=== PATIENT | female | born 1925 | race Caucasian/White ===

== ENCOUNTER 2016-03-31 07:28 | Inpatient (IN) | payer MEDICARE, OTHER ==
[2016-03-31] VITALS (8 sets, daily range): BP systolic 126–162; BP diastolic 65–93; PULSE 75–110; RESP 14–20; TEMP 96.5–98.3; O2SAT 91–96
[~2016-03-31] VITALS: Ht 152.4 cm; Wt 61.2 kg
[~2016-03-31 07:28] MED LIST: ABH GEL TOP; ARIC5TAB PO; CELE20TA PO; CHOL4POW4 PO; GLIP10TA6 PO; LACTCAP8 PO; LEVEMIR SQ; LEVO.2 PO; LISI10TA3 PO; LOMO2.5T PO; MEMA14CA PO; METF500 PO; NEUR300C PO; NOVOLOGP2 SQ; PANT20 PO; PLAV75TA29 PO; PROCHCT RECTAL; SM A PO; TIZA4 PO; TYLE325T PO; ZOFR4TAB PO
[2016-03-31] MEDS ORDERED: SODIUM CHLORIDE 0.9% FLUSH 5 ML FLUSH IVF PRN (07:45)
--- NOTE | 2016-03-31 07:59 | PD ---
HPI . Rectal bleeding Chief Complaint: Rectal bleeding Time Seen by Provider: 07:36 Travel History International Travel<30 days: No Contact w/Intl Traveler<30days: No History of Present Illness HPI Patient [facility] us from a [facility] by [facility] chief complaint of rectal bleeding which started sometime during the middle of the night. She has had no reported vomiting. She has had no reported fever. No further history is available from the patient as she is demented. PFSH Past Medical History Anxiety: No Depression: Yes Cancer: No Cardiac Catheterization: Yes Cardiovascular Problems: No Cerebrovascular Accident: Yes Dementia: Yes Diabetes: Yes Diminished Hearing: No Endocrine: Yes Genitourinary: No Headaches: No Hypertension: Yes Immune Disorder: No Musculoskeletal: No Neurologic: Yes Psychiatric: No Reproductive: No Respiratory: No Seizures: No Sickle Cell Disease: No Thyroid Disease: Yes Menopausal: Yes Past Surgical History Abdominal Surgery: No AICD: No Cardiac Surgery: No Ear Surgery: No Endocrine Surgery: No Eye Surgery: No Genitourinary Surgery: No Gynecologic Surgery: No Oral Surgery: No Pacemaker: No Thoracic Surgery: No Other Surgery: Yes (RIGHT BIG RIGHT TOE AMPUTATED ) Social History Alcohol Use: No Tobacco Use: No Substance Use: No Allergies-Medications (Allergen,Severity, Reaction): Coded Allergies: No Known Allergies (Verified , 03/31/16) Reported Meds & Prescriptions Reported Meds & Active Scripts Active Zanaflex (Tizanidine HCl) 4 Mg Tab 4 Mg PO HS Lisinopril 10 Mg Tab 10 Mg PO DAILY Synthroid (Levothyroxine Sodium) 200 Mcg Tab 200 Mcg PO DAILY@0600 Levemir Inj (Insulin Detemir) 1,000 unit/ 10 ML Vial 18 Units SQ DAILY Proctofoam Hc Rectal (Hydrocortisone/Pramoxine) 1-1% Foam 1 Applic RECTAL Q12HR Glipizide 10 Mg Tab 10 Mg PO DAILYAC Aricept (Donepezil) 5 Mg Tab 5 Mg PO HS Plavix (Clopidogrel Bisulfate) 75 Mg Tab 75 Mg PO DAILY Celexa (Citalopram Hydrobromide) 20 Mg Tab 20 Mg PO DAILY Cholestyramine 4 Gm/Pkt Powd 4 Gm PO DAILY@1200 Reported Trazodone (Trazodone HCl) 50 Mg Tab 50 Mg PO HS PRN Imodium A-D (Loperamide HCl) 2 Mg Cap 2 Mg PO Q3HR PRN Give 2x2mg at onset of diarrhea and then 1 with each loose stool (max 8 caps/24hrs. Notify MD if any blood in stool or diarrhea persists more than 4 days Ativan (Lorazepam) 0.5 Mg Tab 0.5 Mg PO Q8H PRN Gabapentin 300 Mg Cap 300 Mg PO TID Ferrousul (Ferrous Sulfate) 325 Mg Tab 325 Mg PO TID Ativan (Lorazepam) 0.5 Mg Tab 0.5 Mg PO TID Nuedexta 20-10 mg (Dextromethorphan HBr-Quinidine) 1 Cap Cap 1 Cap PO BID Metformin (Metformin HCl) 500 Mg Tab 500 Mg PO BID With meals Tylenol (Acetaminophen) 325 Mg Tab 650 Mg PO Q4H PRN Lomotil (Diphenoxylate-Atropine) 2.5-0.025 Mg Tab 1 Tab PO DAILY PRN Novolog Inj (Insulin Aspart) 1,000 Unit/10 Ml Vial 0 SQ ACHS Sliding Scale as directed: if <70 call MD, 151-200=2 units, 201-250=4 units, 251-300=6 units, 301-350=8 units, 351-400=10 units, >400=12 units and call Probiotic (Lactobacillus Acidophilus) 1 Cap Cap 1 Cap PO BID Namenda Xr (Memantine) 14 Mg Caper 14 Mg PO DAILY Zofran (Ondansetron HCl) 4 Mg Tab 4 Mg PO Q6HR PRN Sm Acid Program Proposals Coordinator (Ranitidine HCl) 75 Mg Tab 75 Mg PO BID Review of Systems ROS Limitations: Altered Mental Status, Poor Historian Except as stated in HPI: all other systems reviewed are Neg General / Constitutional: No: Fever, Chills Gastrointestinal: Positive: Hematochezia, No: Vomiting, Hematemesis Physical Exam Narrative GENERAL: The patient is alert but unable to contribute to her history. SKIN: Warm and dry. HEAD: Atraumatic. Normocephalic. EYES: Pupils equal and round. ENT: No nasal bleeding or discharge. Mucous membranes pink and moist. NECK: Trachea midline. CARDIOVASCULAR: Regular rate and rhythm. RESPIRATORY: No accessory muscle use. GASTROINTESTINAL: Abdomen soft, non-tender, nondistended. She has maroon colored stool soiling her buttocks and upper back. She does have a hemorrhoid but the bleeding does not appear to be coming from the hemorrhoid. MUSCULOSKELETAL: No obvious deformities. No edema. NEUROLOGICAL: Awake and alert. No obvious cranial nerve deficits. Motor grossly within normal limits. Normal speech. PSYCHIATRIC: Occasionally agitated.. Data Data Last Documented VS Vital Signs Date Time Temp Pulse Resp B/P Pulse Ox O2 Delivery O2 Flow Rate FiO2 03/31/16 09:19 83 16 162/87 96 Room Air 03/31/16 08:29 96.5 Orders Basic Metabolic Panel (Bmp) (03/31/16 07:37) Complete Blood Count With Diff (03/31/16 07:37) Prothrombin Time / Inr (Pt) (03/31/16 07:37) Act Partial Throm Time (Ptt) (03/31/16 07:37) Urinalysis - C+S If Indicated (03/31/16 07:37) Type And Screen (03/31/16 07:37) Ecg Monitoring (03/31/16 07:37) Iv Access Insert/Monitor (03/31/16 07:37) Oximetry (03/31/16 07:37) Oxygen Administration (03/31/16 07:37) Urinary Catheter Insert/Apply (03/31/16 07:37) Sodium Chloride 0.9% Flush (Ns Flush) (03/31/16 07:45) Lorazepam Inj (Ativan Inj) (03/31/16 08:00) Restraints Non-Violent LASHAY.Q3H (03/31/16 07:52) Urine Culture (03/31/16 08:00) Ceftriaxone Inj (Rocephin Inj) (03/31/16 09:00) Lorazepam Inj (Ativan Inj) (03/31/16 09:15) Haloperidol Inj (Haldol Inj) (03/31/16 09:30) Admit Order (Ed Use Only) (03/31/16 09:45) Labs Laboratory Tests Test 03/31/16 03/31/16 07:50 08:00 White Blood Count 8.5 TH/MM3 Red Blood Count 3.64 MIL/MM3 Hemoglobin 10.3 GM/DL Hematocrit 31.6 % Mean Corpuscular Volume 86.9 FL Mean Corpuscular Hemoglobin 28.2 PG Mean Corpuscular Hemoglobin 32.5 % Concent Red Cell Distribution Width 24.2 % Platelet Count 247 TH/MM3 Mean Platelet Volume 8.0 FL Neutrophils (%) (Auto) 55.4 % Lymphocytes (%) (Auto) 29.7 % Monocytes (%) (Auto) 9.1 % Eosinophils (%) (Auto) 5.2 % Basophils (%) (Auto) 0.6 % Neutrophils # (Auto) 4.7 TH/MM3 Lymphocytes # (Auto) 2.5 TH/MM3 Monocytes # (Auto) 0.8 TH/MM3 Eosinophils # (Auto) 0.4 TH/MM3 Basophils # (Auto) 0.1 TH/MM3 CBC Comment DIFF FINAL Differential Comment Prothrombin Time 10.3 SEC Prothromb Time International 0.9 RATIO Ratio Activated Partial 20.8 SEC Thromboplast Time Sodium Level 143 MEQ/L Potassium Level 3.8 MEQ/L Chloride Level 106 MEQ/L Carbon Dioxide Level 31.5 MEQ/L Anion Gap 6 MEQ/L Blood Urea Nitrogen 27 MG/DL Creatinine 0.92 MG/DL Estimat Glomerular Filtration 57 ML/MIN Rate Random Glucose 93 MG/DL Calcium Level 9.1 MG/DL Urine Color YELLOW Urine Turbidity CLOUDY Urine pH 8.0 Urine Specific [place] 1.023 Urine Protein 30 mg/dL Urine Glucose (UA) NEG mg/dL Urine Ketones NEG mg/dL Urine Occult Blood TRACE Urine Nitrite NEG Urine Bilirubin NEG Urine Urobilinogen LESS THAN 2.0 MG/DL Urine Leukocyte Esterase SMALL Urine WBC 6 /hpf Urine Squamous Epithelial 4 /hpf Cells Urine Triple Phosphate OCC /hpf Crystals Urine Amorphous Sediment FEW Urine Bacteria MANY /hpf Microscopic Urinalysis Comment CATH-CULTURE IND Blood Type A POSITIVE Antibody Screen NEGATIVE Blood Bank Comment [facility] Medical Decision Making Medical Screen Exam Complete: Yes Emergency Medical Condition: Yes Medical Record Reviewed: Yes (patient has had a recent admission to both the hospital and the psychiatric unit for dementia with behavioral disturbance. She is now unable to care for herself at home. She is also diabetic.) Interpretation(s) EKG shows a sinus rhythm. There is a lot of artifact. However, it does not appear to be changed from previous. Differential Diagnosis Differential diagnosis of lower GI bleed includes but is not limited to bleeding hemorrhoid, diverticulosis, colon cancer, coagulopathy, AVM Narrative Course This is a demented patient from the [facility] who was sent to us for GI bleed which started during the night. He appears to be a lower GI bleed. She is passing burgundy colored stools per rectum. There has been no associated vomiting. The patient is on Plavix but no other anticoagulants. She is on Protonix and Zantac. I do not see any mention of previous GI bleed in her records. CBC & BMP Diagram 03/31/16 07:50 Coags are normal. UA is positive for UTI. CT scan was not possible because of the patient's agitation. Sedation was attempted but she remained too agitated to do the CT. She needs to be admitted at least observation for monitoring of her H&H and for initial treatment of her UTI. Critical Care Narrative Aggregate critical care time was 45 minutes. Time to perform other separately billable procedures was not included in the critical care time. My time did not include minutes spent treating any other patients simultaneously or on activities that did not directly contribute to the patient's treatment. The services I provided to this patient were to treat and/or prevent clinically significant deterioration due to acute blood loss with resultant hemorrhagic shock and cardiovascular collapse. I provided critical care services requiring my management, as noted below: Chart data review, documentation time, medication orders and management, vital sign assessments/reviewing monitor data, ordering and reviewing lab tests, ordering and interpreting/reviewing x-rays and diagnostic studies, care of the patient and discussion of the patient with the admitting physicians Physician Communication Physician Communication Dr. Smith will admit to OBS. Diagnosis Primary Impression: Lower GI bleed Additional Impression: UTI (urinary tract infection) Qualified Code: N30.00 - Acute cystitis without hematuria Admitting Information Admitting Physician Requests: Observation Condition: Stable Анна Meredith MD Mar 31, 2016 07:59
[2016-03-31] MEDS ORDERED: LORazepam 2 MG/ML VIAL IV PUSH ONE ×2 (08:00→09:15)
[2016-03-31 08:19] LABS: AUTOMATED NEUTROPHIL # 4.7 TH/MM3 (1.8-7.7); BASOPHIL # 0.1 TH/MM3 (0-0.2); BASOPHIL % 0.6 % (0.0-2.0); EOSINOPHIL # 0.4 TH/MM3 (0-0.4); EOSINOPHIL % 5.2 % (0.0-4.0); HEMATOCRIT 31.6 % (35.0-46.0); HEMO FLAGS DIFF FINAL; LYMPH % 29.7 % (9.0-44.0); LYMPHOCYTE # 2.5 TH/MM3 (1.0-4.8); MEAN CELL VOLUME 86.9 FL (80.0-100.0); MEAN CORPUSCULAR HEMOGLOBIN 28.2 PG (27.0-34.0); MEAN CORPUSCULAR HGB CONC 32.5 % (32.0-36.0); MONO % 9.1 % (0.0-8.0); NEUT % 55.4 % (16.0-70.0); PLATELET COUNT 247 TH/MM3 (150-450); RED BLOOD COUNT 3.64 MIL/MM3 (4.00-5.30); RED CELL DISTRIBUTION WIDTH 24.2 % (11.6-17.2); WHITE BLOOD COUNT 8.5 TH/MM3 (4.0-11.0)
[2016-03-31 08:24] LABS: BACTERIA, URINE MANY /hpf; BLOOD, URINE TRACE (NEG); COMMENT (UR) CATH-CULTURE IND; CULTURE IF INDICATED CATH CULTURE IND; GLUCOSE,URINE NEG (NEG); KETONE, URINE NEG (NEG); NITRITE,URINE NEG (NEG); SQUAMOUS EPITHELIAL CELL URINE 4 /hpf (0-5); TRIPLE PHOSPHATE CRYSTAL,URINE OCC /hpf; URINE COLOR YELLOW (YELLW/STRAW)
[2016-03-31 08:30] LABS: APTT (PATIENT) 20.8 SEC (24.3-30.1); INTERNATIONAL NORMALIZED RATIO 0.9 RATIO; PROTHROMBIN TIME - PATIENT 10.3 SEC (9.8-11.6)
[2016-03-31 08:34] LABS: BICARBONATE 31.5 MEQ/L (21.0-32.0); POTASSIUM 3.8 MEQ/L (3.5-5.1)
[2016-03-31] MEDS ORDERED: cefTRIAXone INJ 1,000 MG in SODIUM CHLORIDE 0.9% INJ 100 ML IV ONE (09:00)
[2016-03-31] MEDS ORDERED: HALOPERIDOL LACTATE 5 MG/ML AMP IM ONE (09:30)
[2016-03-31] MEDS ORDERED: GABA300C5 PO (09:38)
[2016-03-31] MEDS ORDERED: METF500T PO (09:38)
[2016-03-31] MEDS ORDERED: FERR325T86 PO (09:38)
[2016-03-31] MEDS ORDERED: NUED20CA PO (09:38)
[2016-03-31] MEDS ORDERED: TRAZ50TA12 PO (09:38)
[2016-03-31] MEDS ORDERED: LOPE7.5C PO (09:38)
[2016-03-31] MEDS ORDERED: PROCHCT PR (09:38)
[2016-03-31] MEDS ORDERED: LORA-392 PO ×2 (09:38)
[2016-03-31] MEDS ORDERED: SODIUM CHLORIDE 0.9% FLUSH 5 ML FLUSH FLUSH PRN (11:00)
[2016-03-31] MEDS ORDERED: ACETAMINOPHEN 325 MG TAB PO PRN ×2 (11:00→11:15)
[2016-03-31] MEDS ORDERED: ONDANSETRON HCL 4 MG/2 ML VIAL IVP PRN (11:00)
[2016-03-31] MEDS ORDERED: NALOXONE HCL 0.4 MG/ML AMP IV PRN (11:00)
[2016-03-31] MEDS ORDERED: cloNIDine HCL 0.1 MG TAB PO PRN (11:15)
[2016-03-31] MEDS ORDERED: ENALAPRILAT 1.25 MG/ML VIAL IV PRN (11:15)
[2016-03-31] MEDS: HYDROCORTISONE/PRAMOXINE RECTAL FOAM 10 GM CAN RECTAL SCH ×2 (11:15→21:00)
[2016-03-31] MEDS ORDERED: LOPERAMIDE HCL 2 MG CAP PO PRN (11:15)
[2016-03-31] MEDS: LEVOTHYROXINE SODIUM 200 MCG TAB PO SCH (11:15)
[2016-03-31] MEDS ORDERED: MEMANTINE 14 MG PO SCH (11:15)
[2016-03-31] MEDS: LISINOPRIL 10 MG TAB PO SCH (11:15)
[2016-03-31] MEDS: CITALOPRAM HYDROBROMIDE 20 MG TAB PO SCH (11:15)
[2016-03-31] MEDS: HALOPERIDOL LACTATE 5 MG/ML AMP IM PRN ×2 (11:38→18:50)
[2016-03-31] MEDS: SODIUM CHLOR 0.9% 1000 ML INJ 1,000 ML IV SCH ×2 (11:38→21:00)
[2016-03-31] MEDS: CHOLESTYRAMINE 4 GM PACKET PO SCH (11:39)
[2016-03-31] MEDS: GABAPENTIN 300 MG CAP PO SCH ×2 (13:00→18:00)
[2016-03-31] MEDS: LORazepam 0.5 MG TAB PO SCH ×2 (13:00→18:00)
[2016-03-31] MEDS: FERROUS SULFATE 325 MG (65 MG ELEMENTAL IRON) TAB PO SCH ×2 (13:00→18:00)
--- NOTE | 2016-03-31 13:42 | EKG ---
Date Performed: 03/31/2016 Time Performed: 08:00:21 PTAGE: 89 years EKG: BASELINE ARTIFACT PRESENT. Probable Sinus rhythm Possible INFERIOR MYOCARDIAL INFARCTION ABNORMAL ECG NO PREVIOUS TRACING DOCTOR: Christofer Givens Interpretating Date/Time 03/31/2016 13:41:27
[2016-03-31 13:48] LABS: HEMATOCRIT 29.8 % (35.0-46.0); REVIEW FLAG FINAL
--- NOTE | 2016-03-31 15:31 | PD.CONS ---
HPI History of Present Illness This is a 89 year old female with a hx of dementia, who resides in a local nursing facility and was brought to the ER for evaluation of rectal bleeding. She is nonverbal and unable to provide any history and therefore the history has been obtained from the EMR. According to the ER note, she started having rectal bleeding sometime during the night and was brought to the ER for further evaluation. She has not had any nausea or vomiting. She cannot provide any information, but does appear to have some mild tenderness on exam. H/H on admission was 10.3/31.6 and 5 hours later was 9.5/29.8. According to her medication list, she is on Plavix at the rehab center. She is not currently in any distress. JERRELL Hartley spoke with the patient's family and they have decided to hold off on endoscopic evaluation at this time. (Garima Santillan) PFSH Past Medical History According to EMR: Dementia CVA DM Depression HTN Hypothyroidism Past Surgical History According to the EMR: Right great toe amputation. (Garima Santillan) Coded Allergies: No Known Allergies (Verified , 03/31/16) Medications Allergies Coded Allergies Type Severity Reaction Last Updated Verified No Known Allergies 03/31/16 Yes Active Scripts Medications Dose Route/Sig Days Date Category Dose Instructions Trazodone (Trazodone HCl) 50 Mg Tab 50 Mg PO HS PRN 03/31/16 Reported Imodium A-D (Loperamide HCl) 2 Mg Cap 2 Mg PO Q3HR PRN 03/31/16 Reported Give 2x2mg at onset of diarrhea and then 1 with each loose stool (max 8 caps/24hrs. Notify MD if any blood in stool or diarrhea persists more than 4 days Ativan (Lorazepam) 0.5 Mg Tab 0.5 Mg PO Q8H PRN 03/31/16 Reported Gabapentin 300 Mg Cap 300 Mg PO TID 03/31/16 Reported Ferrousul (Ferrous Sulfate) 325 Mg Tab 325 Mg PO TID 03/31/16 Reported Ativan (Lorazepam) 0.5 Mg Tab 0.5 Mg PO TID 03/31/16 Reported Nuedexta 20-10 mg (Dextromethorphan HBr-Quinidine) 1 Cap Cap 1 Cap PO BID 03/31/16 Reported Metformin (Metformin HCl) 500 Mg Tab 500 Mg PO BID 03/31/16 Reported With meals Zanaflex (Tizanidine HCl) 4 Mg Tab 4 Mg PO HS 02/02/16 Rx Lisinopril 10 Mg Tab 10 Mg PO DAILY 02/02/16 Rx Synthroid (Levothyroxine Sodium) 200 Mcg Tab 200 Mcg PO DAILY@0600 02/02/16 Rx Levemir Inj (Insulin Detemir) 1,000 unit/ 10 ML Vial 18 Units SQ DAILY 02/02/16 Rx Proctofoam Hc Rectal (Hydrocortisone/Pramoxine) 1-1% Foam 1 Applic RECTAL Q12HR 02/02/16 Rx Glipizide 10 Mg Tab 10 Mg PO DAILYAC 02/02/16 Rx Aricept (Donepezil) 5 Mg Tab 5 Mg PO HS 02/02/16 Rx Plavix (Clopidogrel Bisulfate) 75 Mg Tab 75 Mg PO DAILY 02/02/16 Rx Celexa (Citalopram Hydrobromide) 20 Mg Tab 20 Mg PO DAILY 02/02/16 Rx Cholestyramine 4 Gm/Pkt Powd 4 Gm PO DAILY@1200 02/02/16 Rx Tylenol (Acetaminophen) 325 Mg Tab 650 Mg PO Q4H PRN 01/20/16 Reported Lomotil (Diphenoxylate-Atropine) 2.5-0.025 Mg Tab 1 Tab PO DAILY PRN 01/20/16 Reported Novolog Inj (Insulin Aspart) 1,000 Unit/10 Ml Vial 0 SQ ACHS 01/20/16 Reported Sliding Scale as directed: if <70 call MD, 151-200 =2 units, 201-250=4 units, 251-300=6 units, 301-350=8 units, 351-400=10 units, >400=12 units and call Probiotic (Lactobacillus Acidophilus) 1 Cap Cap 1 Cap PO BID 01/20/16 Reported Namenda Xr (Memantine) 14 Mg Caper 14 Mg PO DAILY 01/20/16 Reported Zofran (Ondansetron HCl) 4 Mg Tab 4 Mg PO Q6HR PRN 01/14/16 Reported Sm Acid Nuclear Powerplant Supervisor (Ranitidine HCl) 75 Mg Tab 75 Mg PO BID 01/14/16 Reported Family History Noncontributory Social History Resides in a local nursing facility. No current tobacco/etoh. (Garima Santillan) Review of Systems ROS Unable to obtain from patient, rectal bleeding (SantillanGarima) GI Exam Vitals I&O Vital Signs Date Time Temp Pulse Resp B/P Pulse Ox O2 Delivery O2 Flow Rate FiO2 03/31/16 14:22 110 14 150/87 96 Room Air 03/31/16 11:37 108 16 158/90 95 Room Air 03/31/16 09:19 83 16 162/87 96 Room Air 03/31/16 08:32 75 16 126/85 96 Room Air 03/31/16 08:29 96.5 75 20 126/85 96 Laboratory Test 03/31/16 03/31/16 03/31/16 07:50 08:00 12:55 White Blood Count 8.5 TH/MM3 Red Blood Count 3.64 MIL/MM3 Hemoglobin 10.3 GM/DL 9.5 GM/DL Hematocrit 31.6 % 29.8 % Mean Corpuscular Volume 86.9 FL Mean Corpuscular Hemoglobin 28.2 PG Mean Corpuscular Hemoglobin 32.5 % Concent Red Cell Distribution Width 24.2 % Platelet Count 247 TH/MM3 Mean Platelet Volume 8.0 FL Neutrophils (%) (Auto) 55.4 % Lymphocytes (%) (Auto) 29.7 % Monocytes (%) (Auto) 9.1 % Eosinophils (%) (Auto) 5.2 % Basophils (%) (Auto) 0.6 % Neutrophils # (Auto) 4.7 TH/MM3 Lymphocytes # (Auto) 2.5 TH/MM3 Monocytes # (Auto) 0.8 TH/MM3 Eosinophils # (Auto) 0.4 TH/MM3 Basophils # (Auto) 0.1 TH/MM3 CBC Comment DIFF FINAL Differential Comment Prothrombin Time 10.3 SEC Prothromb Time International 0.9 RATIO Ratio Activated Partial 20.8 SEC Thromboplast Time Sodium Level 143 MEQ/L Potassium Level 3.8 MEQ/L Chloride Level 106 MEQ/L Carbon Dioxide Level 31.5 MEQ/L Anion Gap 6 MEQ/L Blood Urea Nitrogen 27 MG/DL Creatinine 0.92 MG/DL Estimat Glomerular Filtration 57 ML/MIN Rate Random Glucose 93 MG/DL Calcium Level 9.1 MG/DL Urine Color YELLOW Urine Turbidity CLOUDY Urine pH 8.0 Urine Specific [place] 1.023 Urine Protein 30 mg/dL Urine Glucose (UA) NEG mg/dL Urine Ketones NEG mg/dL Urine Occult Blood TRACE Urine Nitrite NEG Urine Bilirubin NEG Urine Urobilinogen LESS THAN 2.0 MG/DL Urine Leukocyte Esterase SMALL Urine WBC 6 /hpf Urine Squamous Epithelial 4 /hpf Cells Urine Triple Phosphate OCC /hpf Crystals Urine Amorphous Sediment FEW Urine Bacteria MANY /hpf Microscopic Urinalysis Comment CATH-CULTURE IND Blood Type A POSITIVE Antibody Screen NEGATIVE Blood Bank Comment Date/Time Procedure Status Source Growth 03/31/16 08:00 Urine Culture Received Urine Catheterized Urine Pending Physical Examination HEENT: Normocephalic; atraumatic; no jaundice CHEST: CTA CARDIAC: Regular, mildly tachycardic ABDOMEN: Soft, nondistended, mild tenderness lower abdomen; no hepatosplenomegaly; bowel sounds are present in all four quadrants. EXTREMITIES: No clubbing, cyanosis, or edema. SKIN: Multiple ecchymotic areas. MARINA DRY DOCK MANAGER: Nonverbal, does not follow commands (Garima Santillan) Assessment and Plan Plan ASSESSMENT: - Rectal bleeding. Pt with a hx of CVA/Dementia, on Plavix, brought from a local nursing facility for rectal bleeding that began overnight, no vomiting. Mild abdominal tenderness on exam. H/H on admission was 10.3/31.6 and 5 hours later was 9.5/29.8. She is not currently in any distress. JERRELL Hartley spoke with the patient's family and they have decided to hold off on endoscopic evaluation at this time. - Anemia, blood loss. Mild. H/H on admission was 10.3/31.6 and 5 hours later was 9.5/29.8. - Abnormal U/A, Cx pending. - Dementia, CVA, DM, Depression, HTN, Hypothyroidism per primary PLAN: - POA/Family would like to hold off on endoscopic evaluation at this time - Clear liquids - PPI - Hold plavix - Monitor HH - Transfuse as necessary - Further recommendations to follow based on results of above - Pt seen and examined by Dr. Yan and myself and this note is written on his behalf (Garima Santillan) Physician Comments Seen and examined with Ms. Jacque LAMA, discussed with JERRELL Navarrete who talked to the son Benito regarding gi [place]. At this time they have decided to hold off on any gi interventions and transfuse as needed. Hopefully the bleeding will cease. Will follow. Thank you (Jesus Yan MD) Garima Santillan Mar 31, 2016 15:31 Jesus Yan MD Mar 31, 2016 17:07
--- NOTE | 2016-03-31 16:05 | MH ---
cc: ANOOPRAMA DATE OF ADMISSION: 03/31/2016 DATE OF : [birth year] REASON FOR ADMISSION Altered mental status and rectal bleeding. TRAVEL WITHIN THE PAST 30 DAYS: None. HISTORY OF PRESENT ILLNESS This is a 89-year-old white female who was brought in from her [place] [facility] setting with positive for rectal bleeding which was noted sometime during the night, according to the record. There is no family present and the patient is unable to give any history or data. She is currently agitated, restrained and delirious. According to the record she had no nausea and vomiting, no known fever and the patient's record does note her dementia. Nurse states that she had some dark bleeding noted, moderate amount noted on a pad since admission to the ER. The patient currently is not responding to verbal or tactile stimuli. PAST MEDICAL HISTORY According to record is: 1. Depression. 2. Dementia. 3. Anxiety. 4. Hypertension. 5. Diabetes. 6. History of CVA. 7. Thyroid disease. PAST SURGICAL HISTORY 1. Cardiac catheterization. 2. Right great toe amputated. No other known surgical history. ALLERGIES None known. MEDICATION Active medications: 1. Zanaflex. 2. Lisinopril. 3. Synthroid. 4. Levemir insulin. 5. Proctofoam HC. 6. Glipizide. 7. Aricept. 8. Plavix. 9. Celexa. 10. Cholestyramine. Please note that those are her active medications. Reported medications include: 1. Trazodone. 2. Imodium. 3. Ativan. 4. Gabapentin. 5. Ferrous sulfate. 6. Ativan p.o. 7. Dextromethorphan HBR-quinidine. 8. Metformin. 9. Tylenol. 10. Lomotil. 11. Novolog insulin. 12. Probiotic. 13. Namenda. 14. Zofran. 15. Zantac. SOCIAL HISTORY No known use of alcohol, tobacco or illicit drug use. FAMILY HISTORY NA. REVIEW OF SYSTEMS Unable to obtain due to the patient's altered mental status and poor historian. Please note, no fever, no chills, no vomiting. Positive for agitation, restlessness, delirium. Positive for hematochezia. PHYSICAL EXAMINATION GENERAL: Well-nourished white female, looks to be her stated age, lying on a stretcher restrained, agitated, delirious. SKIN: Warm and dry. Multiple bruises and contusions on her lower extremities bilateral and her arms. HEENT/NECK: Normocephalic. Mucous membranes are dry and pale. Neck is supple. Eyes are equal and round. No nasal discharge. There is a mild scalp contusion which is not bleeding, superficial. CARDIOVASCULAR: Tachycardia. Regular rate and rhythm. No murmurs, rubs or gallops appreciated. RESPIRATORY: No acute rales, rhonchi or wheezing noted. Low air volumes. GI: Abdomen is soft, nontender, nondistended. Active bowel sounds. Noted on the record in the ER she has maroon-colored stool, incontinent; positive for hemorrhoid. MUSCULOSKELETAL: She is moving all extremities but not with purpose. No edema. NEUROLOGIC: She is not speaking at this time. She is awake but not alert. PSYCHIATRIC: Delirium, agitated. DIAGNOSTIC DATA Sodium 143, potassium 3.8, chloride 106, carbon dioxide 31.5, amnion gap 6, BUN 27, creatinine 0.92. Coag INR is 0.9. CBC with WBC count 8.5, RBC 3.64, hemoglobin 10.3 and now 9.5, hematocrit 31.6, now 29.8. Platelet count 247, monocyte auto 9.1, eosinophils 5.2. Urine is yellow, cloudy, PH is 8, specific gravity 1.023, 30 protein, negative for glucose, ketones, nitrites or bilirubin, trace of occult blood, small amount of leukocyte esterase, occasional triple phosphate crystals, amorphus sediment few, bacteria many. Culture and sensitivity is indicated. IMAGING STUDIES None. ASSESSMENT 1. GI bleed, probable lower. 2. Acute kidney injury with dehydration. 3. UTI. 4. Delirium. 5. Dementia with behavior disturbance. 6. Mild scalp contusion. PLAN Our plan is to monitor H&H's q. 6. The patient is admitted for observation. Her vital signs will be q. 4 and more often if warranted. She is on bedrest but can be out of the bed with assistance once her altered mental status is corrected. Monitor on the air sampling and monitoring. Clear liquid diet. Reconcile medications as warranted. She is getting Haldol 2 mg p.r.n. which she has had a 5 mg dose and a 2 mg dose, they have been ineffective. Will go ahead and get a psychiatric consult for their expert opinion and medical management. This information has been discussed with Dr. Smith and further orders will be received. The patient has SCDs. No DVT prophylaxis due to her GI bleed currently. Will consult gastroenterology for their expert opinion. Complete the urine culture, type and screen and monitor for any drop in her hemoglobin. The patient has a POA. We will need to research further if there is any other living will or information regarding her code status. Currently she is full code for aggressive care. Dictated by: DAINA Agrawal Rama Smith MD JP/CISCO /2:54 PM /4:04 PM Patient was seen and examined on day of admission, as above [id number] time spent with the patient Chart reviewed Labs reviewed Medications reviewed Notes reviewed Plan of care discussed with DAINA Discussed with RN See orders MTDD
[2016-03-31] MEDS: PANTOPRAZOLE SODIUM 40 MG VIAL IV PUSH SCH (16:27)
[2016-03-31] MEDS: LACTOBACILLUS ACIDOPHILUS TAB PO SCH (21:00)
[2016-03-31] MEDS: SODIUM CHLORIDE 0.9% FLUSH 5 ML FLUSH FLUSH SCH (21:00)
[2016-03-31] MEDS: DONEPEZIL HCL 5 MG TAB PO SCH (21:00)
[2016-03-31] MEDS ORDERED: DEXTROMETHORPHAN HBR QUINIDINE PO SCH (21:00)
[2016-03-31] MEDS ORDERED: traZODone HCL 50 MG TAB PO PRN (21:00)
[2016-03-31 21:49] LABS: HEMATOCRIT 24.3 % (35.0-46.0); REVIEW FLAG FINAL
[2016-04-01] VITALS (9 sets, daily range): BP systolic 146–173; BP diastolic 63–95; PULSE 88–114; RESP 28–38; TEMP 97.7–99; O2SAT 93–98
[2016-04-01] MEDS ORDERED: RESP: ALBUTEROL 2.5 MG/IPRATROPIUM 0.5 MG NEB (PRN) NEB (05:00)
[2016-04-01] MEDS ORDERED: RESP: ALBUTEROL 2.5 MG/IPRATROPIUM 0.5 MG NEB (SCH) NEB ONE (05:00)
[2016-04-01] MEDS ORDERED: FUROSEMIDE 20 MG/2 ML VIAL IV PUSH ONE (05:00)
[2016-04-01] MEDS: HALOPERIDOL LACTATE 5 MG/ML AMP IM PRN (05:01)
[2016-04-01] MEDS: LEVOTHYROXINE SODIUM 200 MCG TAB PO SCH (05:12)
--- NOTE | 2016-04-01 06:16 | RADRPT ---
EXAM DATE/TIME: 04/01/2016 05:29 [facility] COMPARISON: CHEST SINGLE AP, January 24, 2016, 11:06. INDICATIONS : Shortness of breath. MEDICAL HISTORY : Stroke. Diabetes mellitus type II. SURGICAL HISTORY : None. ENCOUNTER: Initial ACUITY: 1 day PAIN SCORE: Non-responsive. LOCATION: Bilateral chest FINDINGS: Patchy, fairly diffuse but basilar and perihilar predominant airspace opacities are seen of both lung s. No large effusion. No pneumothorax. Heart size stable, within normal limits. CONCLUSION: Bilateral patchy perihilar and basilar infiltrates. Damir Hennessy MD on April 01, 2016 at 6:13 Board Certified Radiologist. This report was verified electronically.
[2016-04-01 06:56] LABS: AUTOMATED NEUTROPHIL # 8.8 TH/MM3 (1.8-7.7); BASOPHIL % 0.4 % (0.0-2.0); EOSINOPHIL % 0.1 % (0.0-4.0); HEMATOCRIT 27.6 % (35.0-46.0); HEMO FLAGS DIFF FINAL; LYMPH % 12.2 % (9.0-44.0); LYMPHOCYTE # 1.4 TH/MM3 (1.0-4.8); MEAN CELL VOLUME 88.3 FL (80.0-100.0); MEAN CORPUSCULAR HEMOGLOBIN 28.7 PG (27.0-34.0); MEAN CORPUSCULAR HGB CONC 32.5 % (32.0-36.0); MONO % 9.9 % (0.0-8.0); NEUT % 77.4 % (16.0-70.0); PLATELET COUNT 229 TH/MM3 (150-450); RED BLOOD COUNT 3.13 MIL/MM3 (4.00-5.30); WHITE BLOOD COUNT 11.4 TH/MM3 (4.0-11.0)
[2016-04-01 07:07] LABS: ALKALINE PHOSPHATASE 96 U/L (45-117); ALT (GPT) 22 U/L (10-53); ANION GAP 12 MEQ/L (5-15); AST (GOT) 47 U/L (15-37); BICARBONATE 21.4 MEQ/L (21.0-32.0); BLOOD UREA NITROGEN 21 MG/DL (7-18); CHLORIDE 107 MEQ/L (98-107); GLOMERULAR FILTRATION RATE 54 ML/MIN (>89); POTASSIUM 4.2 MEQ/L (3.5-5.1); SODIUM (NA) 140 MEQ/L (136-145); TOTAL BILIRUBIN ADULT 0.4 MG/DL (0.2-1.0)
[2016-04-01] MEDS: SODIUM CHLORIDE 0.9% FLUSH 5 ML FLUSH FLUSH SCH ×2 (09:00→21:00)
[2016-04-01] MEDS: cefTRIAXone INJ 1,000 MG in SODIUM CHLORIDE 0.9% INJ 100 ML IV SCH (09:00)
[2016-04-01] MEDS: LORazepam 0.5 MG TAB PO SCH ×3 (09:00→18:00)
[2016-04-01] MEDS: LACTOBACILLUS ACIDOPHILUS TAB PO SCH ×2 (09:00→21:00)
[2016-04-01] MEDS: LISINOPRIL 10 MG TAB PO SCH (09:00)
[2016-04-01] MEDS: FERROUS SULFATE 325 MG (65 MG ELEMENTAL IRON) TAB PO SCH ×3 (09:00→18:00)
[2016-04-01] MEDS: CITALOPRAM HYDROBROMIDE 20 MG TAB PO SCH (09:00)
[2016-04-01] MEDS: GABAPENTIN 300 MG CAP PO SCH ×3 (09:00→18:00)
--- NOTE | 2016-04-01 11:34 | HHI.GIFU ---
Subjective Remarks Resting in bed. Nonverbal, but appears to have some diffuse abdominal tenderness on exam. Nurse reports 2 episodes of bleeding today, 1st one was a moderate amount of dark bloody stool and 2nd one had small amount of blood. At this time, family holding off on endoscopic evaluation. (Garima Santillan) Objective Vitals I&O Vital Signs Date Time Temp Pulse Resp B/P Pulse Ox O2 Delivery O2 Flow Rate FiO2 04/01/16 08:00 99.0 114 36 154/73 97 04/01/16 05:01 93 Nasal Cannula 3.00 04/01/16 05:01 93 Nasal Cannula 3.00 04/01/16 04:20 97.7 102 36 148/63 98 03/31/16 23:45 97.9 97 18 145/93 91 03/31/16 20:14 97.6 108 18 137/76 95 03/31/16 16:00 98.3 100 20 145/65 94 03/31/16 14:22 110 14 150/87 96 Room Air 03/31/16 11:37 108 16 158/90 95 Room Air I/O 03/31/16 03/31/16 03/31/16 04/01/16 04/01/16 04/01/16 07:00 15:00 23:00 07:00 15:00 23:00 Intake Total 0 ml 0 ml Output Total 900 ml 850 ml Balance -900 ml -850 ml Intake Oral 0 ml 0 ml Output Urine Total 900 ml 850 ml # Voids 0 # Bowel Movements 2 0 Laboratory Laboratory Tests Test 03/31/16 03/31/16 04/01/16 12:55 20:58 05:44 Hemoglobin 9.5 8.2 9.0 Hematocrit 29.8 24.3 27.6 White Blood Count 11.4 Red Blood Count 3.13 Mean Corpuscular Volume 88.3 Mean Corpuscular Hemoglobin 28.7 Mean Corpuscular Hemoglobin 32.5 Concent Red Cell Distribution Width 24.0 Platelet Count 229 Mean Platelet Volume 8.2 Neutrophils (%) (Auto) 77.4 Lymphocytes (%) (Auto) 12.2 Monocytes (%) (Auto) 9.9 Eosinophils (%) (Auto) 0.1 Basophils (%) (Auto) 0.4 Neutrophils # (Auto) 8.8 Lymphocytes # (Auto) 1.4 Monocytes # (Auto) 1.1 Eosinophils # (Auto) 0.0 Basophils # (Auto) 0.0 CBC Comment DIFF FINAL Differential Comment Sodium Level 140 Potassium Level 4.2 Chloride Level 107 Carbon Dioxide Level 21.4 Anion Gap 12 Blood Urea Nitrogen 21 Creatinine 0.97 Estimat Glomerular Filtration 54 Rate Random Glucose 341 Calcium Level 8.3 Total Bilirubin 0.4 Aspartate Amino Transf 47 (AST/SGOT) Alanine Aminotransferase 22 (ALT/SGPT) Alkaline Phosphatase 96 Total Protein 6.2 Albumin 3.1 Date/Time Procedure Status Source Growth 03/31/16 08:00 Urine Culture Received Urine Catheterized Urine Pending Imaging Last Impressions Chest X-Ray 04/01/16 0000 Signed Impressions: Service Date/Time: Friday, April 01, 2016 05:29 - CONCLUSION: Bilateral patchy perihilar and basilar infiltrates. Damir Hennessy MD Physical Exam HEENT: Normocephalic; atraumatic; no jaundice CHEST: Diminished, tachypneic, 30's, simple mask CARDIAC: Regular, mildly tachycardic ABDOMEN: Soft, nondistended, mild diffuse tenderness; no hepatosplenomegaly; bowel sounds are present in all four quadrants. EXTREMITIES: No clubbing, cyanosis, or edema. SKIN: Multiple ecchymotic areas. MANAGER CONFIGURATION: Nonverbal, does not follow commands (Garima Santillan) Assessment and Plan Plan ASSESSMENT: - Rectal bleeding. Pt with a hx of CVA/Dementia, on Plavix, brought from a local nursing facility for rectal bleeding that began overnight, no vomiting. Mild abdominal tenderness on exam. Pt had 2 episodes today, first with moderate amount of dark maroon bloody stool and second with small amt of blood. At this time, family is holding off on endoscopic evaluation. HH stable with this. 9.0/27.6. - Anemia, blood loss. Mild. 9.0/27.6. - Abdominal tenderness, will get ct. - Resp. Insufficiency. CXR with bilateral patchy perihilar and basilar infiltrates. Pt with diminished breath sounds, on simple mask, tachypneic with RR 30's, HR 110's, per primary - Abnormal U/A, Cx pending. - Dementia, CVA, DM with elevated glucose, Depression, HTN, Hypothyroidism per primary PLAN: - Clear liquids - CT scan abdomen and pelvis - PPI - Hold plavix - Monitor HH - Transfuse as necessary - At this time, family holding off on endoscopic evaluation - Further recommendations to follow based on results of above - Pt seen and examined by Dr. Yan and myself and this note is written on his behalf (Garima Santillan) Physician Comments Agree with above, still having some bleeding. No consents yet from POA and family to proceed with gi [place]. They wish to wait 24 hours to see if bleeding stops on its own. CT abd/pelvis ordered. (Jesus Yan MD) Garima Santillan Apr 01, 2016 11:34 Jesus Yan MD Apr 01, 2016 16:37
--- NOTE | 2016-04-01 11:43 | HHI.PR ---
Subjective Subjective Remarks mosamantha hollers out with pain Non-oriented Delirium/restlessness continues Random speech No SOB (Jennifer Painter) Review of Systems Constitutional Constitutional: Weakness (generalized) Constitutional Remarks 10 point ROS attempted, patient unable to parcipate. (Jennifer Painter) Musculoskeletal MS: Weakness (Jennifer Painter) Psychiatric Psychiatric: Agitation, Anxiety Psychiatric Remarks Delirium (Jennifer Painter) Vitals/Results Intake & Output 03/31/16 03/31/16 04/01/16 15:00 23:00 07:00 Intake Total 0 ml 0 ml Output Total 900 ml 850 ml Balance -900 ml -850 ml Intake Oral 0 ml 0 ml Output Urine Total 900 ml 850 ml # Voids 0 # Bowel Movements 2 0 Vital Signs Vital Signs Date Time Temp Pulse Resp B/P Pulse Ox O2 Delivery O2 Flow Rate FiO2 04/01/16 08:00 99.0 114 36 154/73 97 04/01/16 05:01 93 Nasal Cannula 3.00 04/01/16 05:01 93 Nasal Cannula 3.00 04/01/16 04:20 97.7 102 36 148/63 98 03/31/16 23:45 97.9 97 18 145/93 91 03/31/16 20:14 97.6 108 18 137/76 95 03/31/16 16:00 98.3 100 20 145/65 94 03/31/16 14:22 110 14 150/87 96 Room Air 03/31/16 11:37 108 16 158/90 95 Room Air (Jennifer Painter) CBC/BMP: 04/01/16 0544 04/01/16 0544 Lab Results Laboratory Tests Test 03/31/16 03/31/16 04/01/16 12:55 20:58 05:44 Hemoglobin 9.5 GM/DL 8.2 GM/DL 9.0 GM/DL Hematocrit 29.8 % 24.3 % 27.6 % White Blood Count 11.4 TH/MM3 Red Blood Count 3.13 MIL/MM3 Mean Corpuscular Volume 88.3 FL Mean Corpuscular Hemoglobin 28.7 PG Mean Corpuscular Hemoglobin 32.5 % Concent Red Cell Distribution Width 24.0 % Platelet Count 229 TH/MM3 Mean Platelet Volume 8.2 FL Neutrophils (%) (Auto) 77.4 % Lymphocytes (%) (Auto) 12.2 % Monocytes (%) (Auto) 9.9 % Eosinophils (%) (Auto) 0.1 % Basophils (%) (Auto) 0.4 % Neutrophils # (Auto) 8.8 TH/MM3 Lymphocytes # (Auto) 1.4 TH/MM3 Monocytes # (Auto) 1.1 TH/MM3 Eosinophils # (Auto) 0.0 TH/MM3 Basophils # (Auto) 0.0 TH/MM3 CBC Comment DIFF FINAL Differential Comment Sodium Level 140 MEQ/L Potassium Level 4.2 MEQ/L Chloride Level 107 MEQ/L Carbon Dioxide Level 21.4 MEQ/L Anion Gap 12 MEQ/L Blood Urea Nitrogen 21 MG/DL Creatinine 0.97 MG/DL Estimat Glomerular Filtration 54 ML/MIN Rate Random Glucose 341 MG/DL Calcium Level 8.3 MG/DL Total Bilirubin 0.4 MG/DL Aspartate Amino Transf 47 U/L (AST/SGOT) Alanine Aminotransferase 22 U/L (ALT/SGPT) Alkaline Phosphatase 96 U/L Total Protein 6.2 GM/DL Albumin 3.1 GM/DL Imaging Remarks Last Impressions Chest X-Ray 04/01/16 0000 Signed Impressions: Service Date/Time: Friday, April 01, 2016 05:29 - CONCLUSION: Bilateral patchy perihilar and basilar infiltrates. Damir Hennessy MD Current Medications Active Medications Albuterol/ Ipratropium (Duoneb Neb) 1 ampule STAT ONCE NEB; Start 04/01/16 at 05:00; Stop 04/01/16 at 05:01; Status DC Ceftriaxone Sodium/Sodium Chloride (Rocephin Inj/NS Inj) 100 ml @ 200 mls/hr Q24H IV; Start 04/01/16 at 09:00 Cholestyramine Resin (Questran 4 Gm Pkt) 4 gm DAILY@1200 PO; Start 03/31/16 at 12 :00 Donepezil HCl (Aricept) 5 mg HS PO; Start 03/31/16 at 21:00 Ferrous Sulfate (Ferrous Sulfate) 325 mg TID PO; Start 03/31/16 at 13:00 Furosemide (Lasix Inj) 20 mg ONCE ONCE IV PUSH Last administered on 04/01/16t 04:59; Admin Dose 20 MG; Start 04/01/16 at 05:00; Stop 04/01/16 at 05:01; Status DC Gabapentin (Neurontin) 300 mg TID PO; Start 03/31/16 at 13:00 IV Flush 2 ml 2 ml BID FLUSH Last administered on 03/31/16 21:00; Admin Dose 2 ML; Start 03/31/16 at 21:00 Lactobacillus Acidophilus (Lactinex) 1 tab BID PO; Start 03/31/16 at 21:00 Lorazepam (Ativan) 0.5 mg TID PO; Start 03/31/16 at 13:00 Pantoprazole Sodium (Protonix Inj) 40 mg Q24H IV PUSH Last administered on 16:27; Admin Dose 40 MG; Start 03/31/16 at 16:00 Patient Own Medication 1 ea BID PO; Start 03/31/16 at 21:00; Status Hold Tizanidine HCl (Zanaflex) 4 mg HS PO; Start 03/31/16 at 21:00 Trazodone HCl (Desyrel) 50 mg HS PRN PO; Start 03/31/16 at 21:00 (Jennifer Painter) Physical Exam General General Appearance: Pale, Anxious (restlessness,. Delirium) Appearance Remarks Frail (Jennifer Painter) Eyes Eye Exam: Pupils Reactive (Jennifer PainterP) Throat Throat Remarks Pale oral mucous membranes (Jennifer PainterP) Neck Neck Exam: Neck Supple, Trachea Midline (Jennifer PainterP) Pulmonary Resp Exam: Decreased Bases, Diminished Breath Sounds, Poor Inspiratory Effort Resp Remarks Decreased breath sounds bilateral Rhonchi (Jennifer PainterP) Cardiology CV Exam: Regular (Jennifer PainterP) Gastrointestinal/Abdomen GI Exam: Soft, Non-Distended (Jennifer PainterP) Genitourinary Remarks Martins clear yellow urine (Jennifer PainterP) Musculoskeletal MS Exam: Joints Intact, Atrophy (Jennifer PainterP) Integumentary Skin Exam: Warm, Dry Skin Remarks thin turgor (Jennifer Painter) Extremeties Extremities Exam: No Edema (Jennifer Painter) Neurologic Neuro Exam: Moving All Extremities, Combative Neuro Remarks Restless confused (Jennifer Painter) PUD Prophylasis PUD Prophylaxis: Protonix (Jennifer Painter) Assessment/Plan Assessment/Plan ASSESSMENT 1. GI bleed, probable lower. 2. Acute kidney injury with dehydration. 3. UTI. 4. Delirium. 5. Dementia with behavior disturbance. 6. Mild scalp contusion. 7. Leukocytosis 8. Hyperglycemia PLAN Our plan is to monitor H&H's q. 6. Currently hemoglobin is 9, and has not dropped down to any level needing transfusion The patient is admitted for observation. Her vital signs will be q. 4 and more often if warranted. bedrest, restrained 4 Monitor on the desk monitor. Clear liquid diet. PPI psychiatric consult for their expert opinion and medical management for patient 's restlessness and delirium SCDs. No DVT prophylaxis due to her GI bleed gastroenterology for their expert opinion. Patient's son is her POA. Currently he and the family are refusing an EGD. Will take transfusion if needed Continue to monitor lab work. Hypoglycemia noted on her labs this a.m. 341. Patient not known to be diabetic. We'll place her on Accu-Cheks to evaluate. We'll discuss further plan of care with Dr. Smith. Patient seen on his behalf Discussed Condition Comment Discussed with nurse Discussed with Dr. 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
[2016-04-01 11:45] LABS: HEMATOCRIT 25.7 % (35.0-46.0)
[2016-04-01 11:59] LABS: REVIEW FLAG FINAL
[2016-04-01] MEDS ORDERED: GLUCAGON 1 MG/ML VIAL OTHER PRN ×2 (12:00→22:15)
[2016-04-01] MEDS ORDERED: DEXTROSE 50% IN WATER 50 ML VIAL(D50) IV PUSH PRN ×2 (12:00→22:15)
[2016-04-01] MEDS: CHOLESTYRAMINE 4 GM PACKET PO SCH (12:00)
[2016-04-01] MEDS: PANTOPRAZOLE SODIUM 40 MG VIAL IV PUSH SCH (14:19)
--- NOTE | 2016-04-01 15:13 | PD.CONS ---
Provisional Diagnosis Admission Date Mar 31, 2016 at 09:48 [place]. Delirium due to underlying medical conditions, history of dementia with behavioral disturbances History of Present Illness Service Psychiatry Consult Requested By Primary Care Physician Rome Murillo M.D. HPI The patient is a 89-year-old woman domicile in a halfway, she hasn't had a history of dementia with behavioral disturbances, she was hospitalized recently in the 2500 units under the care of Dr. Haines, medical records were reviewed, patient is currently on psychotropics citalopram 20 mg, trazodone 50 mg and Aricept 10 mg. She was brought to the ER this time from her halfway due to acute rectal bleeding, after mental status, on initial evaluation she was found to have acute anemia, UTI, [place] and metabolic encephalopathy. Patient was consulted to psychiatry due to help with behavior. Patient was seen for psychiatric evaluation, she was restrained in 4 points, agitated, completely disoriented and confused, unable to provide any significant or meaningful information for the psychiatric assessment at this moment. Review of Systems ROS Limitations: Uncooperative Past Family Social History Coded Allergies: No Known Allergies (Verified , 03/31/16) Active Scripts Tizanidine (Zanaflex)4 Mg Tab4 Mg PO HS #30 TAB Ref 0 Prov:Damir Haines MD 02/02/16 Lisinopril 10 Mg Tab10 Mg PO DAILY #30 TAB Ref 0 Prov:Damir Haines MD 02/02/16 Levothyroxine (Synthroid)200 Mcg [id number] Mcg PO DAILY@0600 #30 TAB Ref 0 Prov:Damir Haines MD 02/02/16 Insulin Detemir Inj (Levemir Inj)1,000 unit/ 10 ML Vial18 Units SQ DAILY #1 INJECTION Ref 0 Prov:Damir Haines MD 02/02/16 Hydrocortisone-Pramoxine Rectal (Proctofoam Hc Rectal)1-1% Foam1 Applic RECTAL Q12HR #60 FOAM Ref 0 Prov:Damir Haines MD 02/02/16 Glipizide 10 Mg Tab10 Mg PO DAILYAC #30 TAB Ref 0 Prov:Damir Haines MD 02/02/16 Donepezil (Aricept)5 Mg Tab5 Mg PO HS #30 TAB Ref 0 Prov:Damir Haines MD 02/02/16 Clopidogrel (Plavix)75 Mg Tab75 Mg PO DAILY #30 TAB Ref 0 Prov:Damir Haines MD 02/02/16 Citalopram (Celexa)20 Mg Tab20 Mg PO DAILY #30 TAB Ref 0 Prov:Damir Haines MD 02/02/16 Cholestyramine 4 Gm/Pkt Powd4 Gm PO DAILY@1200 #30 PACK Ref 0 Prov:Damir Haines MD 02/02/16 Reported Medications Trazodone 50 Mg Tab50 Mg PO HS PRN (INSOMNIA) #30 TAB Ref 0 03/31/16 Loperamide (Imodium A-D)2 Mg Cap2 Mg PO Q3HR PRN (DIARRHEA) Ref 0 Give 2x2mg at onset of diarrhea and then 1 with each loose stool (max 8 caps/24hrs. Notify MD if any blood in stool or diarrhea persists more than 4 days 03/31/16 Lorazepam (Ativan)0.5 Mg Tab0.5 Mg PO Q8H PRN (ANXIETY AND/OR AGITATION) Ref 0 03/31/16 Gabapentin 300 Mg [id number] Mg PO TID #90 CAP Ref 0 03/31/16 Ferrous Sulfate (Ferrousul)325 Mg [id number] Mg PO TID 03/31/16 Lorazepam (Ativan)0.5 Mg Tab0.5 Mg PO TID Ref 0 03/31/16 Dextromethorphan HBr-Quinidine (Nuedexta 20-10 mg)1 Cap Cap1 Cap PO BID #60 CAP Ref 0 03/31/16 Metformin 500 Mg [id number] Mg PO BID #60 TAB Ref 0 With meals 03/31/16 Acetaminophen (Tylenol)325 Mg Lyf353 Mg PO Q4H PRN (PAIN 1-10 AND/OR FEVER >101F ) Ref 0 01/20/16 Diphenoxylate-Atropine (Lomotil)2.5-0.025 Mg Tab1 Tab PO DAILY PRN (LOOSE STOOL ) Ref 0 01/20/16 Insulin Aspart Inj (Novolog Inj)1,000 Unit/10 Ml Vial SQ ACHS #10 ML Ref 0 Sliding Scale as directed: if <70 call MD, 151-200=2 units, 201-250=4 units, 251-300=6 units, 301-350=8 units, 351-400=10 units, >400=12 units and call 01/20/16 Lactobacillus Acidophilus (Probiotic)1 Cap Cap1 Cap PO BID #90 CAP Ref 0 01/20/16 Memantine Er (Namenda Xr)14 Mg Caper14 Mg PO DAILY #30 CAP Ref 0 01/20/16 Ondansetron (Zofran)4 Mg Tab4 Mg PO Q6HR PRN (NAUSEA OR VOMITING) Ref 0 01/14/16 Ranitidine HCl (Sm Acid Special Education Inclusion Teacher)75 Mg Tab75 Mg PO BID 01/14/16 Discontinued Reported Medications [Abh Gel] No Conflict Check1 Applic TOP Q8HR PRN (ANXIETY) Apply to wrist 01/20/16 Discontinued Scripts Pantoprazole (Protonix)20 Mg Tab20 Mg PO DAILY #30 TAB Ref 0 Prov:Damir Haines MD 02/02/16 Current Medications Medications (Trade) Dose Ordered Sig/Dave Route Start Time Stop Time Status Last Admin (NS 1000 ml Inj) 1,000 ml @ 50 mls/hr Q20H IV 03/31/16 11:00 03/31/16 21:00 (NS Flush) 2 ml UNSCH PRN FLUSH 03/31/16 11:00 (NS Flush) 2 ml BID FLUSH 03/31/16 21:00 03/31/16 21:00 (Tylenol) 650 mg Q4H PRN PO 03/31/16 11:00 (Zofran Inj) 4 mg Q6H PRN IVP 03/31/16 11:00 Naloxone HCl 0.4 mg 0.4 mg UNSCH PRN IV 03/31/16 11:00 (Rocephin Inj/NS Inj) 100 ml @ 200 mls/hr Q24H IV 04/01/16 09:00 04/01/16 09:00 (Tylenol) 650 mg Q4H PRN PO 03/31/16 11:15 (Questran 4 Gm Pkt) 4 gm DAILY@1200 PO 03/31/16 12:00 (CeleXA) 20 mg DAILY PO 03/31/16 11:15 (Aricept) 5 mg HS PO 03/31/16 21:00 (Ferrous Sulfate) 325 mg TID PO 03/31/16 13:00 (Neurontin) 300 mg TID PO 03/31/16 13:00 (Proctofoam Hc Rectal Foam) 1 applic Q12HR RECTAL 03/31/16 11:15 (Lactinex) 1 tab BID PO 03/31/16 21:00 (Synthroid) 200 mcg DAILY@0600 PO 03/31/16 11:15 (Prinivil) 10 mg DAILY PO 03/31/16 11:15 04/01/16 09:00 (Imodium) 2 mg Q3HR PRN PO 03/31/16 11:15 (Ativan) 0.5 mg TID PO 03/31/16 13:00 04/01/16 13:00 (Zanaflex) 4 mg HS PO 03/31/16 21:00 (Desyrel) 50 mg HS PRN PO 03/31/16 21:00 Patient Own Medication 1 ea BID PO 03/31/16 21:00 Hold Patient Own Medication 14 ea DAILY PO 03/31/16 11:15 Hold (Haldol Inj) 2 mg Q6H PRN IM 03/31/16 11:15 04/01/16 05:01 (Vasotec Inj) 1.25 mg Q6H PRN IV 03/31/16 11:15 03/31/16 13:47 (Catapres) 0.1 mg Q6H PRN PO 03/31/16 11:15 (Protonix Inj) 40 mg Q24H IV PUSH 03/31/16 16:00 04/01/16 14:19 (D50w (Vial) Inj) 25 ml UNSCH PRN IV PUSH 04/01/16 12:00 (Glucagon Inj) 1 mg UNSCH PRN OTHER 04/01/16 12:00 Physical Exam Vital Signs Vital Signs Date Time Temp Pulse Resp B/P Pulse Ox O2 Delivery O2 Flow Rate FiO2 04/01/16 12:35 94 Nasal Cannula 5.00 04/01/16 12:00 98.2 113 28 153/95 I/O 03/31/16 03/31/16 04/01/16 08:00 16:00 00:00 Intake Total 0 ml Output Total 900 ml Balance -900 ml Mental Status Examination Mental status exam was limited to the fact that the patient is agitated, and non -cooperative Appearance elderly woman, age appearing, agitated, restrained in 4 point uncooperative Speech: Incoherent Memory: Impaired (describe) Thought Process: Flight of Ideas Assessment & Plan Problem List: (1) Delirium due to another medical condition Assessment & Plan: Patient is uncooperative with the psychiatric assessment due to the level of disorganization, confusion and delirium. She has history of dementia behavioral disturbances, she has the potential to become aggressive and disorganized Please continue current psychotropics, citalopram 20 daily, trazodone 50 mg daily, Aricept 10 mg Add Haldol 2 mg IM every 8 hours when necessary aggressive behavior and agitation Avoid benzodiazepines and anticholinergic if possible, since this medication can worsen cognition and produce paradoxical reaction With follow-up ICD Code: F05 Assessment & Plan Estimated LOS: Melquiades Curry MD Apr 01, 2016 15:13
[2016-04-01] MEDS: SODIUM CHLOR 0.9% 1000 ML INJ 1,000 ML IV SCH (17:00)
[2016-04-01 17:20] LABS: REVIEW FLAG FINAL
--- NOTE | 2016-04-01 18:44 | RADRPT ---
EXAM DATE/TIME: 04/01/2016 16:45 [place] COMPARISON: No previous studies available for comparison. INDICATIONS : Blood in stool. ORAL CONTRAST: No oral contrast ingested. RADIATION DOSE: 15.05 CTDIvol (mGy) MEDICAL HISTORY : Dementia. Cerebrovascular disease. Diabetes mellitus type 2.Hypertension SURGICAL HISTORY : None. ENCOUNTER: Initial ACUITY: 1 day PAIN SCALE: Non-responsive LOCATION: abdomen TECHNIQUE: Volumetric scanning of the abdomen and pelvis was performed. Using automated exposure control and ad justment of the mA and/or kV according to patient size, radiation dose was kept as low as reasonably achievable to obtain optimal diagnostic quality images. FINDINGS: There is bilateral basilar lung consolidation with air bronchograms most characteristic of bronchopne umonia. Gveba-gn-anomzkyi bilateral pleural effusions present.No acute findings in the liver, spleen, adrenals, kidneys or pancreas. Calcified granulomata are present in the liver and spleen. There is colonic diverticulosis, especially severe in the sigmoid region. No evidence for diverticuli tis. No free fluid or free air. No bowel obstruction. Martins catheter present in the bladder. No acute bony abnormalities. CONCLUSION: 1. Basilar lung consolidation with small pleural effusions. Findings could represent bronchopneumonia with parapneumonic effusions. 2. Severe colonic diverticulosis, especially sigmoid. 3. The Martins catheter is present in decompressed bladder. Pablo Napier MD on April 01, 2016 at 18:30 Board Certified Radiologist. This report was verified electronically.
[2016-04-01] MEDS: DONEPEZIL HCL 5 MG TAB PO SCH (21:00)
[2016-04-01] MEDS: HYDROCORTISONE/PRAMOXINE RECTAL FOAM 10 GM CAN RECTAL SCH (21:00)
[2016-04-01 23:05] LABS: HEMATOCRIT 26.9 % (35.0-46.0); REVIEW FLAG FINAL
[2016-04-01] MEDS: INSULIN ASPART SUPPLEMENTAL SCALE SQ SCH (23:18)
[2016-04-02] VITALS (13 sets, daily range): BP systolic 122–167; BP diastolic 62–74; PULSE 87–154; RESP 18–24; TEMP 97.6–99.5; O2SAT 91–97
[2016-04-02] MEDS ORDERED: GLUCAGON 1 MG/ML VIAL OTHER PRN (00:15)
[2016-04-02] MEDS ORDERED: DEXTROSE 50% IN WATER 50 ML VIAL(D50) IV PUSH PRN (00:15)
[2016-04-02] MEDS: LEVOTHYROXINE SODIUM 200 MCG TAB PO SCH (05:13)
[2016-04-02] MEDS: INSULIN ASPART SUPPLEMENTAL SCALE SQ SCH ×4 (06:37→21:00)
[2016-04-02] MEDS ORDERED: INSULIN ASPART SUPPLEMENTAL SCALE SQ SCH (07:00)
[2016-04-02 08:07] LABS: AUTOMATED NEUTROPHIL # 12.9 TH/MM3 (1.8-7.7); BASOPHIL % 0.1 % (0.0-2.0); HEMO FLAGS DIFF FINAL; LYMPH % 6.1 % (9.0-44.0); LYMPHOCYTE # 0.9 TH/MM3 (1.0-4.8); MEAN CELL VOLUME 87.2 FL (80.0-100.0); MEAN CORPUSCULAR HEMOGLOBIN 29.5 PG (27.0-34.0); MEAN CORPUSCULAR HGB CONC 33.9 % (32.0-36.0); MONO % 5.8 % (0.0-8.0); PLATELET COUNT 215 TH/MM3 (150-450); RED BLOOD COUNT 3.09 MIL/MM3 (4.00-5.30); RED CELL DISTRIBUTION WIDTH 24.2 % (11.6-17.2); WHITE BLOOD COUNT 14.7 TH/MM3 (4.0-11.0)
[2016-04-02 08:34] LABS: BICARBONATE 27.7 MEQ/L (21.0-32.0); POTASSIUM 3.7 MEQ/L (3.5-5.1)
[2016-04-02] MEDS: HYDROCORTISONE/PRAMOXINE RECTAL FOAM 10 GM CAN RECTAL SCH ×2 (09:00→21:00)
[2016-04-02] MEDS: SODIUM CHLORIDE 0.9% FLUSH 5 ML FLUSH FLUSH SCH ×2 (09:00→21:00)
[2016-04-02] MEDS: CITALOPRAM HYDROBROMIDE 20 MG TAB PO SCH (09:00)
[2016-04-02] MEDS: LACTOBACILLUS ACIDOPHILUS TAB PO SCH ×2 (09:00→21:00)
[2016-04-02] MEDS: FERROUS SULFATE 325 MG (65 MG ELEMENTAL IRON) TAB PO SCH ×3 (09:00→18:02)
[2016-04-02] MEDS: LISINOPRIL 10 MG TAB PO SCH (09:20)
[2016-04-02] MEDS: cefTRIAXone INJ 1,000 MG in SODIUM CHLORIDE 0.9% INJ 100 ML IV SCH (09:20)
[2016-04-02] MEDS: GABAPENTIN 300 MG CAP PO SCH ×3 (09:20→18:02)
[2016-04-02] MEDS: LORazepam 0.5 MG TAB PO SCH ×2 (09:21→11:18)
--- NOTE | 2016-04-02 10:45 | HHI.PR ---
Subjective Subjective Remarks confused demented unable to obtain ROS noted wheezing at times refusing meds, spits them out not eating much restraints Review of Systems Constitutional Constitutional: Weakness (generalized) Constitutional Remarks Unable to do ROS Musculoskeletal MS: Weakness Psychiatric Psychiatric: Agitation, Anxiety Vitals/Results Intake & Output 04/01/16 04/01/16 04/02/16 15:00 23:00 07:00 Intake Total 150 ml 0 ml 0 ml Output Total 1450 ml 500 ml 500 ml Balance -1300 ml -500 ml -500 ml Intake Oral 150 ml 0 ml 0 ml Output Urine Total 1450 ml 500 ml 500 ml # Bowel Movements 2 0 0 Vital Signs Vital Signs Date Time Temp Pulse Resp B/P Pulse Ox O2 Delivery O2 Flow Rate FiO2 04/02/16 09:05 99.5 106 22 167/73 95 04/02/16 04:20 98.2 95 24 155/74 91 04/01/16 23:15 98.0 88 28 146/82 93 04/01/16 20:00 98 04/01/16 19:27 98.3 93 32 152/71 97 04/01/16 16:00 98.9 106 38 173/79 97 04/01/16 12:35 94 Nasal Cannula 5.00 04/01/16 12:00 98.2 113 28 153/95 94 CBC/BMP: 04/02/16 0750 04/02/16 0750 Lab Results Laboratory Tests Test 04/01/16 04/01/16 04/01/16 04/02/16 11:15 17:11 22:41 07:50 Hemoglobin 8.4 GM/DL 8.5 GM/DL 8.7 GM/DL 9.1 GM/DL Hematocrit 25.7 % 26.0 % 26.9 % 27.0 % White Blood Count 14.7 TH/MM3 Red Blood Count 3.09 MIL/MM3 Mean Corpuscular Volume 87.2 FL Mean Corpuscular Hemoglobin 29.5 PG Mean Corpuscular Hemoglobin 33.9 % Concent Red Cell Distribution Width 24.2 % Platelet Count 215 TH/MM3 Mean Platelet Volume 7.9 FL Neutrophils (%) (Auto) 88.0 % Lymphocytes (%) (Auto) 6.1 % Monocytes (%) (Auto) 5.8 % Eosinophils (%) (Auto) 0.0 % Basophils (%) (Auto) 0.1 % Neutrophils # (Auto) 12.9 TH/MM3 Lymphocytes # (Auto) 0.9 TH/MM3 Monocytes # (Auto) 0.9 TH/MM3 Eosinophils # (Auto) 0.0 TH/MM3 Basophils # (Auto) 0.0 TH/MM3 CBC Comment DIFF FINAL Differential Comment Sodium Level 146 MEQ/L Potassium Level 3.7 MEQ/L Chloride Level 109 MEQ/L Carbon Dioxide Level 27.7 MEQ/L Anion Gap 9 MEQ/L Blood Urea Nitrogen 23 MG/DL Creatinine 0.89 MG/DL Estimat Glomerular Filtration 60 ML/MIN Rate Random Glucose 245 MG/DL Calcium Level 8.8 MG/DL Physical Exam General General Appearance: Well Developed, Pale, Anxious (restlessness,. Delirium) Eyes Eye Exam: Pupils Equal, Pupils Reactive Ears & Nose Ears & Nose Exam: Nasal [place] Neck Neck Exam: Neck Supple, Trachea Midline Pulmonary Resp Exam: Diminished Breath Sounds Resp Remarks Expiratory wheezes Cardiology CV Exam: Regular Gastrointestinal/Abdomen GI Exam: Soft, Non-Tender, Bowel Sounds Present, Non-Distended Musculoskeletal MS Exam: Joints Intact, Atrophy Integumentary Skin Exam: Warm, Dry Extremeties Extremities Exam: No Edema, Pedal Pulses Palpable Neurologic Neuro Exam: Awake, Moving All Extremities, Combative VTE Prophylaxis VTE Prophylaxis Device: SCDs PUD Prophylasis PUD Prophylaxis: Protonix Assessment/Plan Assessment/Plan 1. Rectal bleeding 2. dehydration. 3. UTI-proteus 4. Delirium. 5. Dementia with behavior disturbance. 6. Mild scalp contusion. 7. Leukocytosis 8. Hyperglycemia 9. Type II DM PLAN Continue with serial H&H, stable Hold Plavix Appreciate GI input Clear liquid diet Protonix for GI prophylaxis CT of the abdomen and pelvis completed, shows severe diverticulosis, bibasilar lung consolidation with small pleural effusions findings could represent bronchopneumonia with parapneumonic effusions. UTI, positive for Proteus Continue with Rocephin Possible pneumonia based on CT findings Continue with Rocephin, will add Zithromax Appreciate psychiatric input Recommends to avoid benzodiazepines and anticholinergics Continue with Haldol IM for agitation Restraints for patient safety Poor oral intake Continue with IV fluids Encourage by mouth intake Continue with Accu-Cheks before meals and at bedtime for insulin therapy Continue with home meds Repeat labs in the morning SCDs for DVT prophylaxis PPI for GI prophylaxis D/W RN D/W Dr. Smith This patient was seen by myself and Dr. Smith, this note is his behalf Iris Mcconnell Apr 02, 2016 10:45
[2016-04-02] MEDS: CHOLESTYRAMINE 4 GM PACKET PO SCH (11:14)
[2016-04-02] MEDS: HALOPERIDOL LACTATE 5 MG/ML AMP IM PRN (11:15)
[2016-04-02] MEDS: AZITHROMYCIN INJ 500 MG in SODIUM CHLOR 0.9% 250 ML INJ 250 ML IV SCH (12:51)
[2016-04-02] MEDS ORDERED: DILTIAZEM HCL 25 MG/5 ML VIAL IV ONE (15:00)
[2016-04-02] MEDS: RESP: ALBUTEROL 2.5 MG/IPRATROPIUM 0.5 MG NEB (SCH) NEB ×2 (15:12→19:52)
[2016-04-02] MEDS: PANTOPRAZOLE SODIUM 40 MG VIAL IV PUSH SCH (16:00)
--- NOTE | 2016-04-02 16:37 | HHI.GIFU ---
Subjective Remarks Resting in bed. No signs of bleeding today according to nurse. Did have Afib with RVR earlier and required Cardizem bolus according to the nurse. (Garima Santillan) Objective Vitals I&O Vital Signs Date Time Temp Pulse Resp B/P Pulse Ox O2 Delivery O2 Flow Rate FiO2 04/02/16 13:48 128/62 04/02/16 13:06 97.6 107 20 97 04/02/16 09:05 99.5 106 22 167/73 95 04/02/16 04:20 98.2 95 24 155/74 91 04/01/16 23:15 98.0 88 28 146/82 93 04/01/16 20:00 98 04/01/16 19:27 98.3 93 32 152/71 97 I/O 04/01/16 04/01/16 04/01/16 04/02/16 04/02/16 04/02/16 07:00 15:00 23:00 07:00 15:00 23:00 Intake Total 0 ml 150 ml 0 ml 0 ml Output Total 850 ml 1450 ml 500 ml 500 ml Balance -850 ml -1300 ml -500 ml -500 ml Intake Oral 0 ml 150 ml 0 ml 0 ml Output Urine Total 850 ml 1450 ml 500 ml 500 ml # Bowel Movements 0 2 0 0 Laboratory Laboratory Tests Test 04/01/16 04/01/16 04/02/16 17:11 22:41 07:50 Hemoglobin 8.5 8.7 9.1 Hematocrit 26.0 26.9 27.0 White Blood Count 14.7 Red Blood Count 3.09 Mean Corpuscular Volume 87.2 Mean Corpuscular Hemoglobin 29.5 Mean Corpuscular Hemoglobin 33.9 Concent Red Cell Distribution Width 24.2 Platelet Count 215 Mean Platelet Volume 7.9 Neutrophils (%) (Auto) 88.0 Lymphocytes (%) (Auto) 6.1 Monocytes (%) (Auto) 5.8 Eosinophils (%) (Auto) 0.0 Basophils (%) (Auto) 0.1 Neutrophils # (Auto) 12.9 Lymphocytes # (Auto) 0.9 Monocytes # (Auto) 0.9 Eosinophils # (Auto) 0.0 Basophils # (Auto) 0.0 CBC Comment DIFF FINAL Differential Comment Sodium Level 146 Potassium Level 3.7 Chloride Level 109 Carbon Dioxide Level 27.7 Anion Gap 9 Blood Urea Nitrogen 23 Creatinine 0.89 Estimat Glomerular Filtration 60 Rate Random Glucose 245 Calcium Level 8.8 Date/Time Procedure Status Source Growth 03/31/16 08:00 Urine Culture - Final Complete Urine Catheterized Urine Proteus [facility] Imaging Last Impressions Abdomen/Pelvis CT 04/01/16 1448 Signed Impressions: Service Date/Time: Friday, April 01, 2016 16:45 - CONCLUSION: 1. Basilar lung consolidation with small pleural effusions. Findings could represent bronchopneumonia with parapneumonic effusions. 2. Severe colonic diverticulosis , especially sigmoid. 3. The Martins catheter is present in decompressed bladder. Pablo Napier MD Chest X-Ray 04/01/16 0000 Signed Impressions: Service Date/Time: Friday, April 01, 2016 05:29 - CONCLUSION: Bilateral patchy perihilar and basilar infiltrates. Damir Hennessy MD Physical Exam HEENT: Normocephalic; atraumatic; no jaundice CHEST: Diminished breath sounds. CARDIAC: RRR ABDOMEN: Soft, nondistended, mild diffuse tenderness; no hepatosplenomegaly; bowel sounds are present in all four quadrants. EXTREMITIES: No clubbing, cyanosis, or edema. SKIN: Multiple ecchymotic areas. CORE FILER: Nonverbal, does not follow commands (Garima Santillan) Assessment and Plan Plan ASSESSMENT: - Rectal bleeding. Pt with a hx of CVA/Dementia, on Plavix, brought from a local nursing facility for rectal bleeding that began overnight, no vomiting. Abdomen/Pelvis CT (04/01/16)-----> 1. Basilar lung consolidation with small pleural effusions. Findings could represent bronchopneumonia with parapneumonic effusions. 2. Severe colonic diverticulosis, especially sigmoid. 3. The Martins catheter is present in decompressed bladder. She had some bleeding yesterday, but according to the nurse, she has not had any further episodes. HH stable and in fact, has increased. .03/18.0. Family was wanting to avoid endoscopic evaluations unless absolutely necessary. Currently she is not bleeding and her hh has remained stable.. - Anemia, blood loss. Mild. 9.03/18.0 - Abdominal tenderness. Abdomen/Pelvis CT (04/01/16)-----> 1. Basilar lung consolidation with small pleural effusions. Findings could represent bronchopneumonia with parapneumonic effusions. 2. Severe colonic diverticulosis, especially sigmoid. 3. The Martins catheter is present in decompressed bladder. - Resp. Insufficiency. CXR with bilateral patchy perihilar and basilar infiltrates. Pt with diminished breath sounds. - Tachycardia, started on Cardizem per nurse - UTI, Cx with proteus mirabilis. abx per primary - Dementia, CVA, DM with elevated glucose, Depression, HTN, Hypothyroidism per primary PLAN: - Swallow evaluation, heart healthy diet at recommended consistency - PPI - Monitor HH - Transfuse as necessary - Further recommendations to follow based on results of above - Pt seen and examined by Dr. Yan and myself and this note is written on his behalf (Garima Santillan) Physician Comments Seen and examined, agree with above. GI [place] on hold unless active bleeding per POAs request. (Jesus Yan MD) Garima Santillan Apr 02, 2016 16:37 Jesus Yan MD Apr 03, 2016 12:00
[2016-04-02] MEDS: SODIUM CHLOR 0.9% 1000 ML INJ 1,000 ML IV SCH (17:00)
[2016-04-02] MEDS: DONEPEZIL HCL 5 MG TAB PO SCH (21:00)
[2016-04-03] VITALS (18 sets, daily range): BP systolic 104–145; BP diastolic 51–96; PULSE 72–125; RESP 18–26; TEMP 97.5–98.7; O2SAT 89–98
[2016-04-03] MEDS: SODIUM CHLOR 0.9% 1000 ML INJ 1,000 ML IV SCH (01:12)
[2016-04-03] MEDS: LEVOTHYROXINE SODIUM 200 MCG TAB PO SCH (05:08)
[2016-04-03] MEDS: INSULIN ASPART SUPPLEMENTAL SCALE SQ SCH ×4 (06:05→22:00)
[2016-04-03] MEDS: RESP: ALBUTEROL 2.5 MG/IPRATROPIUM 0.5 MG NEB (SCH) NEB ×4 (07:18→23:03)
[2016-04-03 07:50] LABS: MEAN CELL VOLUME 90.1 FL (80.0-100.0); MEAN CORPUSCULAR HEMOGLOBIN 28.7 PG (27.0-34.0); MEAN CORPUSCULAR HGB CONC 31.9 % (32.0-36.0); PLATELET COUNT 203 TH/MM3 (150-450); RED CELL DISTRIBUTION WIDTH 24.6 % (11.6-17.2); REVIEW FLAG FINAL; WHITE BLOOD COUNT 13.8 TH/MM3 (4.0-11.0)
[2016-04-03 08:14] LABS: BICARBONATE 21.9 MEQ/L (21.0-32.0); POTASSIUM 3.5 MEQ/L (3.5-5.1)
[2016-04-03] MEDS: HYDROCORTISONE/PRAMOXINE RECTAL FOAM 10 GM CAN RECTAL SCH ×2 (09:00→21:00)
[2016-04-03] MEDS: SODIUM CHLORIDE 0.9% FLUSH 5 ML FLUSH FLUSH SCH ×2 (09:00→21:00)
[2016-04-03] MEDS: CITALOPRAM HYDROBROMIDE 20 MG TAB PO SCH (09:00)
[2016-04-03] MEDS: FERROUS SULFATE 325 MG (65 MG ELEMENTAL IRON) TAB PO SCH ×3 (09:00→16:56)
[2016-04-03] MEDS: LACTOBACILLUS ACIDOPHILUS TAB PO SCH ×2 (09:00→21:00)
[2016-04-03] MEDS: LISINOPRIL 10 MG TAB PO SCH (09:00)
[2016-04-03] MEDS: GABAPENTIN 300 MG CAP PO SCH ×3 (09:00→16:56)
[2016-04-03] MEDS ORDERED: FUROSEMIDE 20 MG/2 ML VIAL IV PUSH ONE (09:15)
[2016-04-03] MEDS ORDERED: POTASSIUM CHLOR 20 MEQ PREMIX 100 ML IV ONE (09:15)
--- NOTE | 2016-04-03 09:18 | HHI.PR ---
Subjective Subjective Remarks awakes to voice lethargic not as agitated audible ronchi and wheeze no fever tachycardic not eating much HR elevated, tele reviewed, afib, up to 144 Review of Systems Constitutional Constitutional: Weakness (generalized) Constitutional Remarks Unable to do ROS Musculoskeletal MS: Weakness Psychiatric Psychiatric: Agitation, Anxiety Vitals/Results Intake & Output 04/02/16 04/02/16 04/03/16 15:00 23:00 07:00 Intake Total 602 ml 383 ml Output Total 200 ml Balance 402 ml 383 ml Intake Oral 180 ml 0 ml IV Total 422 ml 383 ml Output Urine Total 200 ml # Bowel Movements 1 Vital Signs Vital Signs Date Time Temp Pulse Resp B/P Pulse Ox O2 Delivery O2 Flow Rate FiO2 04/03/16 07:18 92 Nasal Cannula 4.00 04/03/16 04:00 Nasal Cannula 4.00 Humidified 04/03/16 04:00 98.3 106 18 145/72 93 04/03/16 00:00 97.6 99 18 116/68 96 04/03/16 00:00 Nasal Cannula 4.00 Humidified 04/02/16 23:35 144 04/02/16 20:30 98.6 87 22 122/71 96 04/02/16 20:30 Nasal Cannula 4.00 Humidified 04/02/16 20:00 87 04/02/16 19:54 96 Nasal Cannula 4.00 04/02/16 17:36 98.9 96 18 144/63 95 04/02/16 15:04 122 04/02/16 15:00 144 04/02/16 14:30 154 04/02/16 13:48 128/62 04/02/16 13:06 97.6 107 20 97 CBC/BMP: 04/03/16 0629 04/03/16 0629 Lab Results Laboratory Tests Test 04/03/16 06:29 White Blood Count 13.8 TH/MM3 Red Blood Count 3.00 MIL/MM3 Hemoglobin 8.6 GM/DL Hematocrit 27.0 % Mean Corpuscular Volume 90.1 FL Mean Corpuscular Hemoglobin 28.7 PG Mean Corpuscular Hemoglobin 31.9 % Concent Red Cell Distribution Width 24.6 % Platelet Count 203 TH/MM3 Mean Platelet Volume 8.5 FL Sodium Level 146 MEQ/L Potassium Level 3.5 MEQ/L Chloride Level 111 MEQ/L Carbon Dioxide Level 21.9 MEQ/L Anion Gap 13 MEQ/L Blood Urea Nitrogen 33 MG/DL Creatinine 1.06 MG/DL Estimat Glomerular Filtration 49 ML/MIN Rate Random Glucose 323 MG/DL Calcium Level 8.9 MG/DL Physical Exam General General Appearance: Well Developed, Pale, Anxious (restlessness,. Delirium) Eyes Eye Exam: Pupils Equal, Pupils Reactive Ears & Nose Ears & Nose Exam: Nasal Mucosa [place] Neck Neck Exam: Neck Supple, Trachea Midline Pulmonary Resp Exam: Crackles, Rhonchi, Diminished Breath Sounds Resp Remarks Expiratory wheezes Cardiology CV Exam: Irregular, Tachycardia Gastrointestinal/Abdomen GI Exam: Soft, Non-Tender, Bowel Sounds Present, Non-Distended Musculoskeletal MS Exam: Joints Intact, Atrophy Integumentary Skin Exam: Warm, Dry Extremeties Extremities Exam: No Edema, Pedal Pulses Palpable Neurologic Neuro Exam: Awake, Moving All Extremities, Combative VTE Prophylaxis VTE Prophylaxis Device: SCDs PUD Prophylasis PUD Prophylaxis: Protonix Assessment/Plan Assessment/Plan 1. Rectal bleeding 2. dehydration. 3. UTI-proteus 4. Delirium. 5. Dementia with behavior disturbance. 6. Mild scalp contusion. 7. Leukocytosis 8. Hyperglycemia 9. Type II DM 10. Afib PLAN Continue with serial H&H, stable Hold Plavix Appreciate GI input Clear liquid diet Protonix for GI prophylaxis CT of the abdomen and pelvis completed, shows severe diverticulosis, bibasilar lung consolidation with small pleural effusions findings could represent bronchopneumonia with parapneumonic effusions. UTI, positive for Proteus Continue with Rocephin Possible pneumonia based on CT findings Continue with Rocephin and Zithromax inc. wheezing, congestion CXR today add short course of IV steroids Lasix 20 mg IV x 1 Duonebs Swallow eval now Appreciate psychiatric input Recommends to avoid benzodiazepines and anticholinergics Ativan DCd Continue with Haldol IM for agitation remove restraints if able Poor oral intake Continue with IV fluids Encourage by mouth intake staff to assist with meals Continue with Accu-Cheks before meals and at bedtime for insulin therapy Blood glucose elevated due to steroids Hypernatremia change to D5W check Na level in am Replace labs SCDs for DVT prophylaxis PPI for GI prophylaxis Advanced directives reviewed, DNR form in chart change to DNR condition guarded not ready for discharge D/W RN D/W Dr. Smith This patient was seen by myself and Dr. Smith, this note is his behalf Iris Mcconnell Apr 03, 2016 09:18
[2016-04-03] MEDS: methylPREDNISolone SOD SUCC 40 MG/1 ML VIAL IV PUSH SCH ×3 (09:44→22:00)
--- NOTE | 2016-04-03 09:52 | RADRPT ---
EXAM DATE/TIME: 04/03/2016 09:28 [facility] COMPARISON: CHEST SINGLE AP, April 01, 2016, 5:29. INDICATIONS : Congestion. MEDICAL HISTORY : Stroke. Cerebrovascular disease. Diabetes mellitus type 2. SURGICAL HISTORY : None. ENCOUNTER: Initial ACUITY: 1 day PAIN SCORE: Non-responsive. LOCATION: Bilateral chest FINDINGS: There continue be some scattered interstitial infiltrates without significant change compared to the prior study. The heart size is stable. There is very mild blunting of the right costophrenic angle. T here is no evidence of pneumothorax. The bony structures are stable. CONCLUSION: No significant interval change. Josué Moore MD on April 03, 2016 at 9:50 Board Certified Radiologist. This report was verified electronically.
[2016-04-03] MEDS: AZITHROMYCIN INJ 500 MG in SODIUM CHLOR 0.9% 250 ML INJ 250 ML IV SCH (11:00)
[2016-04-03] MEDS: CHOLESTYRAMINE 4 GM PACKET PO SCH (12:00)
[2016-04-03] MEDS: DILTIAZEM HCL 30 MG TAB PO SCH ×2 (13:00→16:54)
[2016-04-03] MEDS: cefTRIAXone INJ 1,000 MG in SODIUM CHLORIDE 0.9% INJ 100 ML IV SCH (13:30)
[2016-04-03] MEDS: PANTOPRAZOLE SODIUM 40 MG VIAL IV PUSH SCH (15:13)
[2016-04-03] MEDS: DEXTROSE 5% IN WATE 1000ML INJ 1,000 ML IV SCH (16:34)
[2016-04-03] MEDS: DONEPEZIL HCL 5 MG TAB PO SCH (21:00)
[2016-04-03] MEDS: DILTIAZEM 125 MG/NS 100 ML IV SCH ×2 (21:26)
[2016-04-04] VITALS (8 sets, daily range): BP systolic 104–137; BP diastolic 54–66; PULSE 87–119; RESP 16–22; TEMP 97.4–99.9; O2SAT 83–95
[2016-04-04] MEDS: LEVOTHYROXINE SODIUM 200 MCG TAB PO SCH (06:00)
[2016-04-04] MEDS: methylPREDNISolone SOD SUCC 40 MG/1 ML VIAL IV PUSH SCH ×2 (06:03→21:59)
[2016-04-04 06:08] LABS: BICARBONATE 26.4 MEQ/L (21.0-32.0); POTASSIUM 4.5 MEQ/L (3.5-5.1)
[2016-04-04] MEDS: INSULIN ASPART SUPPLEMENTAL SCALE SQ SCH ×4 (06:57→21:00)
[2016-04-04 07:57] LABS: MEAN CELL VOLUME 91.1 FL (80.0-100.0); MEAN CORPUSCULAR HEMOGLOBIN 28.9 PG (27.0-34.0); MEAN CORPUSCULAR HGB CONC 31.7 % (32.0-36.0); PLATELET COUNT 211 TH/MM3 (150-450); RED BLOOD COUNT 2.97 MIL/MM3 (4.00-5.30); RED CELL DISTRIBUTION WIDTH 24.8 % (11.6-17.2); REVIEW FLAG FINAL; WHITE BLOOD COUNT 14.9 TH/MM3 (4.0-11.0)
[2016-04-04] MEDS: RESP: ALBUTEROL 2.5 MG/IPRATROPIUM 0.5 MG NEB (SCH) NEB ×4 (08:00→19:52)
--- NOTE | 2016-04-04 09:45 | EKG ---
Date Performed: 04/03/2016 Time Performed: 12:20:32 PTAGE: 89 years EKG: Sinus rhythm WITH SINUS ARRHYTHMIA INFERIOR MYOCARDIAL INFARCTION , PROBABLY OLD ABNORMAL ECG Compared to prior t racing no significant change PREVIOUS TRACING : 03/31/2016 08.00 DOCTOR: Prashanth Shafer Interpretating Date/Time 04/04/2016 09:42:54
[2016-04-04] MEDS: cefTRIAXone INJ 1,000 MG in SODIUM CHLORIDE 0.9% INJ 100 ML IV SCH (09:53)
[2016-04-04] MEDS: SODIUM CHLORIDE 0.9% FLUSH 5 ML FLUSH FLUSH SCH ×2 (09:54→21:00)
[2016-04-04] MEDS: GABAPENTIN 300 MG CAP PO SCH ×3 (09:58→19:23)
[2016-04-04] MEDS: DILTIAZEM HCL 30 MG TAB PO SCH (09:58)
[2016-04-04] MEDS: CITALOPRAM HYDROBROMIDE 20 MG TAB PO SCH (09:58)
[2016-04-04] MEDS: FERROUS SULFATE 325 MG (65 MG ELEMENTAL IRON) TAB PO SCH ×3 (09:58→19:23)
[2016-04-04] MEDS: LACTOBACILLUS ACIDOPHILUS TAB PO SCH ×2 (09:58→21:59)
[2016-04-04] MEDS: LISINOPRIL 10 MG TAB PO SCH (09:59)
[2016-04-04] MEDS: DEXTROSE 5% IN WATE 1000ML INJ 1,000 ML IV SCH (09:59)
[2016-04-04] MEDS: HYDROCORTISONE/PRAMOXINE RECTAL FOAM 10 GM CAN RECTAL SCH ×2 (09:59→22:01)
--- NOTE | 2016-04-04 10:17 | HHI.PR ---
Subjective Subjective Remarks awakes to voice, talking more still in restraints no fever HR elevated, 110, afib not eating much, needs to be fed Review of Systems Constitutional Constitutional: Weakness (generalized) Constitutional Remarks Unable to do ROS Musculoskeletal MS: Weakness Psychiatric Psychiatric: Agitation, Anxiety Vitals/Results Intake & Output 04/03/16 04/03/16 04/04/16 15:00 23:00 07:00 Intake Total 907 ml 532 ml Output Total 500 ml 200 ml Balance -500 ml 907 ml 332 ml Intake Oral 0 ml 50 ml IV Total 907 ml 482 ml Output Urine Total 500 ml 200 ml # Voids 0 # Bowel Movements 1 0 0 Vital Signs Vital Signs Date Time Temp Pulse Resp B/P Pulse Ox O2 Delivery O2 Flow Rate FiO2 04/04/16 08:12 92 Nasal Cannula 4.00 04/04/16 04:00 97.4 97 18 137/63 91 04/04/16 04:00 Nasal Cannula 4.00 Humidified 04/04/16 04:00 112 04/04/16 00:00 Nasal Cannula 4.00 Humidified 04/04/16 00:00 116 04/04/16 00:00 98.0 112 18 130/61 91 04/03/16 23:08 Nasal Cannula 4.00 Humidified 04/03/16 23:08 106 26 119/56 97 04/03/16 23:04 97 Nasal Cannula 4.00 04/03/16 23:00 98.1 112 20 132/68 04/03/16 22:45 110 24 129/80 97 04/03/16 22:30 124 24 129/80 04/03/16 22:15 122 26 112/56 04/03/16 22:06 125 26 133/96 04/03/16 21:45 125 26 136/66 04/03/16 21:27 120 26 110/57 04/03/16 21:16 123 04/03/16 20:05 114 04/03/16 20:00 97.5 72 18 144/60 98 04/03/16 20:00 Nasal Cannula 4.00 Humidified 04/03/16 16:00 98.7 121 21 127/57 89 04/03/16 12:00 98.6 87 20 104/51 96 CBC/BMP: 04/04/16 0734 04/04/16 0512 Lab Results Laboratory Tests Test 04/04/16 04/04/16 05:12 07:34 Sodium Level 147 MEQ/L Potassium Level 4.5 MEQ/L Chloride Level 111 MEQ/L Carbon Dioxide Level 26.4 MEQ/L Anion Gap 10 MEQ/L Blood Urea Nitrogen 33 MG/DL Creatinine 0.97 MG/DL Estimat Glomerular Filtration 54 ML/MIN Rate Random Glucose 269 MG/DL Calcium Level 8.6 MG/DL White Blood Count 14.9 TH/MM3 Red Blood Count 2.97 MIL/MM3 Hemoglobin 8.6 GM/DL Hematocrit 27.0 % Mean Corpuscular Volume 91.1 FL Mean Corpuscular Hemoglobin 28.9 PG Mean Corpuscular Hemoglobin 31.7 % Concent Red Cell Distribution Width 24.8 % Platelet Count 211 TH/MM3 Mean Platelet Volume 8.6 FL Physical Exam General General Appearance: Well Developed, Pale, Anxious (restlessness,. Delirium) Eyes Eye Exam: Pupils Equal, Pupils Reactive Ears & Nose Ears & Nose Exam: Nasal Mucosa [place] Throat Throat Remarks oral mucosa dry Neck Neck Exam: Neck Supple, Trachea Midline Pulmonary Resp Exam: Diminished Breath Sounds Resp Remarks faint ronchi and wheeze, markedly improved Cardiology CV Exam: Irregular, Tachycardia Gastrointestinal/Abdomen GI Exam: Soft, Non-Tender, Bowel Sounds Present, Non-Distended Musculoskeletal MS Exam: Joints Intact, Atrophy Integumentary Skin Exam: Warm, Dry Extremeties Extremities Exam: No Edema, Pedal Pulses Palpable Neurologic Neuro Exam: Awake, Speech Clear, Moving All Extremities VTE Prophylaxis VTE Prophylaxis Device: SCDs PUD Prophylasis PUD Prophylaxis: Protonix Assessment/Plan Assessment/Plan 1. Rectal bleeding 2. dehydration. 3. UTI-proteus 4. Delirium. 5. Dementia with behavior disturbance. 6. Mild scalp contusion. 7. Leukocytosis 8. Hyperglycemia 9. Type II DM 10. Afib PLAN Continue with serial H&H, stable Hold Plavix Appreciate GI input Clear liquid diet Protonix for GI prophylaxis CT of the abdomen and pelvis completed, shows severe diverticulosis, bibasilar lung consolidation with small pleural effusions findings could represent bronchopneumonia with parapneumonic effusions. UTI, positive for Proteus Continue with Rocephin Possible pneumonia based on CT findings Continue with Rocephin and Zithromax improved today CXR reviewed, no change Wean off IV steroids Sonia Speech recommendations noted, pureed instructed RN to please assist pt. with meals, risk of aspiration Appreciate psychiatric input Recommends to avoid benzodiazepines and anticholinergics Ativan DCd Continue with Haldol IM for agitation d/w RN, need to remove restraints, use sitter Poor oral intake Continue with IV fluids Encourage by mouth intake staff to assist with meals Continue with Accu-Cheks before meals and at bedtime for insulin therapy Blood glucose elevated due to steroids Hypernatremia continue with D5W inc. PO water intake SCDs for DVT prophylaxis PPI for GI prophylaxis DNR slightly improved today Hopefully dc 2 days needs restraints removed PT for mobility D/W RN D/W Dr. Smith This patient was seen by myself and Dr. Smith, this note is his behalf Iris Mcconnell Apr 04, 2016 10:17
--- NOTE | 2016-04-04 11:06 | HHI.GIFU ---
Subjective Remarks Resting in bed. No distress. No active bleeding. Tolerated diet. Objective Vitals I&O Vital Signs Date Time Temp Pulse Resp B/P Pulse Ox O2 Delivery O2 Flow Rate FiO2 04/04/16 08:12 92 Nasal Cannula 4.00 04/04/16 04:00 97.4 97 18 137/63 91 04/04/16 04:00 Nasal Cannula 4.00 Humidified 04/04/16 04:00 112 04/04/16 00:00 Nasal Cannula 4.00 Humidified 04/04/16 00:00 116 04/04/16 00:00 98.0 112 18 130/61 91 04/03/16 23:08 Nasal Cannula 4.00 Humidified 04/03/16 23:08 106 26 119/56 97 04/03/16 23:04 97 Nasal Cannula 4.00 04/03/16 23:00 98.1 112 20 132/68 04/03/16 22:45 110 24 129/80 97 04/03/16 22:30 124 24 129/80 04/03/16 22:15 122 26 112/56 04/03/16 22:06 125 26 133/96 04/03/16 21:45 125 26 136/66 04/03/16 21:27 120 26 110/57 04/03/16 21:16 123 04/03/16 20:05 114 04/03/16 20:00 97.5 72 18 144/60 98 04/03/16 20:00 Nasal Cannula 4.00 Humidified 04/03/16 16:00 98.7 121 21 127/57 89 04/03/16 12:00 98.6 87 20 104/51 96 I/O 04/03/16 04/03/16 04/03/16 04/04/16 04/04/16 04/04/16 07:00 15:00 23:00 07:00 15:00 23:00 Intake Total 383 ml 907 ml 532 ml Output Total 500 ml 200 ml Balance 383 ml -500 ml 907 ml 332 ml Intake Oral 0 ml 0 ml 50 ml IV Total 383 ml 907 ml 482 ml Output Urine Total 500 ml 200 ml # Voids 0 # Bowel Movements 1 0 0 Laboratory Laboratory Tests Test 04/04/16 04/04/16 05:12 07:34 Sodium Level 147 Potassium Level 4.5 Chloride Level 111 Carbon Dioxide Level 26.4 Anion Gap 10 Blood Urea Nitrogen 33 Creatinine 0.97 Estimat Glomerular Filtration 54 Rate Random Glucose 269 Calcium Level 8.6 White Blood Count 14.9 Red Blood Count 2.97 Hemoglobin 8.6 Hematocrit 27.0 Mean Corpuscular Volume 91.1 Mean Corpuscular Hemoglobin 28.9 Mean Corpuscular Hemoglobin 31.7 Concent Red Cell Distribution Width 24.8 Platelet Count 211 Mean Platelet Volume 8.6 Date/Time Procedure Status Source Growth 03/31/16 08:00 Urine Culture - Final Complete Urine Catheterized Urine Proteus [facility] Imaging Last Impressions Chest X-Ray 04/03/16 0000 Signed Impressions: Service Date/Time: Sunday, April 03, 2016 09:28 - CONCLUSION: No significant interval change. Josué Moore MD Abdomen/Pelvis CT 04/01/16 1448 Signed Impressions: Service Date/Time: Friday, April 01, 2016 16:45 - CONCLUSION: 1. Basilar lung consolidation with small pleural effusions. Findings could represent bronchopneumonia with parapneumonic effusions. 2. Severe colonic diverticulosis , especially sigmoid. 3. The Martins catheter is present in decompressed bladder. Pablo Napier MD Physical Exam HEENT: Normocephalic; atraumatic; no jaundice CHEST: Diminished breath sounds. CARDIAC: Irregular ABDOMEN: Soft, nondistended, mild diffuse tenderness; no hepatosplenomegaly; bowel sounds are present in all four quadrants. EXTREMITIES: No clubbing, cyanosis, or edema. SKIN: Multiple ecchymotic areas. DIE KEEPER: Nonverbal, does not follow commands Assessment and Plan Plan ASSESSMENT: - Rectal bleeding. Pt with a hx of CVA/Dementia, on Plavix, brought from a local nursing facility for rectal bleeding that began overnight, no vomiting. Abdomen/Pelvis CT (04/01/16)-----> 1. Basilar lung consolidation with small pleural effusions. Findings could represent bronchopneumonia with parapneumonic effusions. 2. Severe colonic diverticulosis, especially sigmoid. 3. The Martins catheter is present in decompressed bladder. No further bleeding since last week. Family was wanting to avoid endoscopic evaluations unless absolutely necessary. Currently she is not bleeding and her hh has remained stable. HH stable at 8.6/27.0. - Anemia, blood loss. Mild. 8.6/27.0. - Abdominal tenderness. Abdomen/Pelvis CT (04/01/16)-----> 1. Basilar lung consolidation with small pleural effusions. Findings could represent bronchopneumonia with parapneumonic effusions. 2. Severe colonic diverticulosis, especially sigmoid. 3. The Martins catheter is present in decompressed bladder. - Resp. Insufficiency. CXR with bilateral patchy perihilar and basilar infiltrates. Pt with diminished breath sounds. - Tachycardia, started on Cardizem per nurse - UTI, Cx with proteus mirabilis. abx per primary - Dementia, CVA, DM with elevated glucose, Depression, HTN, Hypothyroidism per primary PLAN: - Puree diet with honey thickened liquids - PPI - Monitor HH - Transfuse as necessary - Family would like to avoid endoscopic procedures - GI will sign off, please reconsult as needed - Pt seen and examined by Dr. Johnson and myself and this note is written on her behalf Garima Santillan Apr 04, 2016 11:06
[2016-04-04] MEDS: AZITHROMYCIN INJ 500 MG in SODIUM CHLOR 0.9% 250 ML INJ 250 ML IV SCH (12:12)
[2016-04-04] MEDS: CHOLESTYRAMINE 4 GM PACKET PO SCH (12:12)
--- NOTE | 2016-04-04 12:56 | MB ---
cc: GEOVANNA REBOLLAR M.D. DATE OF CONSULTATION: 04/04/2016 REASON FOR CONSULTATION: Evaluation of atrial fibrillation. HISTORY OF PRESENT ILLNESS Michelle Dueñas is a 89-year-old woman from a [facility] with a history of dementia, who is admitted with rectal bleeding. She has been in and out of atrial fibrillation since being here and looking at her telemetry strips when she is in atrial fibrillation her rate is usually quite fast. She is in atrial fibrillation at present with a rate near 100 but is currently on p.o. Cardizem. No history can be obtained at all from the patient because of her history of dementia. She is currently in restraints. PAST MEDICAL HISTORY Past medical history includes: 1. Depression. 2. Dementia. 3. Anxiety. 4. Hypertension. 5. Diabetes. 6. Prior stroke. 7. Thyroid disease. MEDICATION Her medications are currently charted. SOCIAL HISTORY Nonsmoker, nondrinker. FAMILY HISTORY Not obtainable. REVIEW OF SYSTEMS Not obtainable. PHYSICAL EXAMINATION GENERAL: Reveals an elderly female. She is awake. When I asked her how she was feeling she said she is feeling fine, that was all the verbal responses I could get from her. HEENT: Exam is unremarkable. NECK: Shows no JVD. CHEST: Chest is clear anteriorly. CARDIAC: S1-S2, regular rate and rhythm. Cannot appreciate murmur or gallop. ABDOMEN: Soft. EXTREMITIES: Warm, well-perfused. DATA In looking at all her strips on EKG, she has been in sinus rhythm alternating with atrial fibrillation, RVR. LABORATORIES Hematocrit is 27. White count 14,900, creatinine is 0.97, BUN 33. IMAGING STUDIES Her chest x-ray shows scattered interstitial infiltrates. Abdominal/pelvic CT shows small pleural effusions and severe colonic diverticulosis. IMPRESSION Intermittent atrial fibrillation with active GI bleed. RECOMMENDATIONS Would hold off on any anticoagulation. She is currently on diltiazem 60 mg t.i.d. Her rate is coming down so I am going to continue that for now, may require further adjustment. I do not think she is a good candidate for anticoagulation in view of the GI bleed. Further therapy to be determined. MD DAVID Laura/CISCO /12:31 PM /12:42 PM
--- NOTE | 2016-04-04 16:07 | EC ---
Study Study Date:04/04/2016 STUDY CONCLUSIONS SUMMARY - Left ventricle: The cavity size was normal. Wall thickness was normal. Systolic function was normal. The estimated ejection fraction was in the range of 55% to 60%. Wall motion was normal; there were no regional wall motion abnormalities. - Aortic valve: Valve area: 0.55cm^2(VTI). Valve area: 0.59cm^2 (Vmax). - Mitral valve: Mild regurgitation. - Pulmonary arteries: PA peak pressure: 42mm Hg (S). If LV function is below 40, please consider prescribing an ACEI or ARB or document rationale for non-use. PROCEDURE DATA STUDY STATUS: Elective. Procedure: Transthoracic echocardiography. Image quality was good. Scanning was performed from the parasternal, apical, and subcostal acoustic windows. Study completion: The patient tolerated the procedure well. Transthoracic echocardiography. M-mode, complete 2D, complete spectral Doppler, and color Doppler. Height: Height: 60in. Weight: Weight: 133.7lb. Body mass index: BMI: 26.2kg/m^2. Body surface area: BSA: 1.57m^2. Patient status: Inpatient. CARDIAC ANATOMY LEFT VENTRICLE: The cavity size was normal. Wall thickness was normal. Systolic function was normal. The estimated ejection fraction was in the range of 55% to 60%. Wall motion was normal; there were no regional wall motion abnormalities. AORTIC VALVE: Trileaflet; moderately thickened leaflets. Doppler: Transvalvular velocity was within the normal range. There was no stenosis. No regurgitation. Valve area: 0.55cm^2(VTI). Indexed valve area: 0.35cm^2/m^2 (VTI). Valve area: 0.59cm^2 (Vmax). Indexed valve area: 0.38cm^2/m^2 (Vmax). Mean gradient: 6mm Hg (S). AORTA: Aortic root: The aortic root was normal in size. MITRAL VALVE: Structurally normal valve. Doppler: Transvalvular velocity was within the normal range. There was no evidence for stenosis. Mild regurgitation. Peak gradient: 9mm Hg (D). LEFT ATRIUM: The atrium was normal in size. RIGHT VENTRICLE: The cavity size was normal. Wall thickness was normal. PULMONIC VALVE: Doppler: Transvalvular velocity was within the normal range. There was no evidence for stenosis. No regurgitation. TRICUSPID VALVE: Structurally normal valve. Doppler: Transvalvular velocity was within the normal range. No regurgitation. PULMONARY ARTERY: The main pulmonary artery was normal-sized. Systolic pressure was within the normal range. RIGHT ATRIUM: The atrium was normal in size. PERICARDIUM: There was no pericardial effusion. SYSTEMIC VEINS: Inferior vena cava: The vessel was normal in size. Patient weight: 133.7lb _Ejection fraction:_ 65-75% _Fractional shortening:_ 32% up to 5Kg 5-11.5Kg 11.6-22.9Kg 23-45Kg 45-57Kg Aortic Root 7-13 <17 13-22 17-27 17-27 LA diam 6-13 <23 24-38 33-47 37-40 RVID 10-17 7-15 7-15 7-18 8-17 LVIDd 12-22 <32 24-38 33-47 37-40 LVPW 2-4 3-6 5-7 6-8 7-8 IVS 2-4 3-6 5-7 6-8 7-8 BASIC MEASUREMENTS ADULT NORMAL Left ventricle LV internal dimension, ED, chordal 47.8 mm 43-52 level, PLAX LV internal dimension, ES, chordal 37.2 mm 23-38 level, PLAX Fractional shortening, chordal level, *22 % >29 PLAX LV posterior wall thickness, ED 9.93 mm IVS/LVPW ratio, ED 1 <1.3 Ventricular septum Septal thickness, ED 9.97 mm Aortic valve Leaflet separation 16 mm 15-26 Aorta Root diameter, ED 28 mm Left atrium Anterior-posterior dimension 37 mm Anterior-posterior dimension index *2.36 cm/m^2 <2.2 BASIC MEASUREMENTS ADULT NORMAL Aortic valve Leaflet separation 16 mm 15-26 DOPPLER MEASUREMENTS ADULT NORMAL Main pulmonary artery Pressure, S *42 mm Hg =30 Aortic valve Peak velocity, S 152 cm/s Mean velocity, S 107 cm/s VTI, S 25.8 cm Mean gradient, S 6 mm Hg Valve area, VTI 0.55 cm^2 Valve area index, VTI 0.35 cm^2/m^2 Valve area, Vmax 0.59 cm^2 Valve area index, Vmax 0.38 cm^2/m^2 Mitral valve Peak E-wave velocity 147 cm/s Deceleration time 164 ms 150-230 Peak gradient, D 9 mm Hg Tricuspid valve Regurgitant peak velocity 285 cm/s Peak RV-RA gradient, S 32 mm Hg Maximal regurgitant velocity 285 cm/s Systemic veins Estimated CVP 5 mm Hg Right ventricle RV pressure, S *43 mm Hg <30 Pulmonic valve Peak velocity, S 47.2 cm/s LEGEND: Mean values are shown as u=mean value. Asterisk (*) rosado values outside specified normal range. Prepared and signed by Prashanth Shafer [id number]
[2016-04-04] MEDS: PANTOPRAZOLE SODIUM 40 MG VIAL IV PUSH SCH (16:08)
[2016-04-04] MEDS: DILTIAZEM HCL 60 MG TAB PO SCH ×2 (16:08→19:23)
[2016-04-04] MEDS: DONEPEZIL HCL 5 MG TAB PO SCH (21:59)
[2016-04-05] VITALS (9 sets, daily range): BP systolic 92–145; BP diastolic 52–65; PULSE 70–117; RESP 16–26; TEMP 97.8–98.7; O2SAT 88–99
[2016-04-05] MEDS: DILTIAZEM 125 MG/NS 100 ML IV SCH ×2 (00:31)
[2016-04-05] MEDS: INSULIN ASPART SUPPLEMENTAL SCALE SQ SCH ×4 (06:33→22:28)
[2016-04-05] MEDS: LEVOTHYROXINE SODIUM 200 MCG TAB PO SCH (06:33)
--- NOTE | 2016-04-05 06:58 | RADRPT ---
EXAM DATE/TIME: 04/05/2016 05:52 [facility] COMPARISON: CHEST SINGLE AP, April 03, 2016, 9:28. INDICATIONS : Fever, congestion MEDICAL HISTORY : Stroke. Diabetes mellitus type II. Cerebrovascular disease. SURGICAL HISTORY : None. ENCOUNTER: Subsequent ACUITY: 2 days PAIN SCORE: Non-responsive. LOCATION: Bilateral chest FINDINGS: The cardiac silhouette is enlarged in transverse diameter. There are findings of congestive heart mimi lure with interstitial and alveolar opacity bilaterally. There is left lower lobe atelectasis versus pneumonia. The findings have worsened when compared with the prior examination. CONCLUSION: 1. Cardiomegaly and findings of congestive heart failure. The findings have worsened when compared wi th the prior examination. Prashanth Styles MD on April 05, 2016 at 6:56 Board Certified Radiologist. This report was verified electronically.
[2016-04-05] MEDS: cefTRIAXone INJ 1,000 MG in SODIUM CHLORIDE 0.9% INJ 100 ML IV SCH (08:42)
[2016-04-05] MEDS: SODIUM CHLORIDE 0.9% FLUSH 5 ML FLUSH FLUSH SCH ×2 (08:42→21:00)
[2016-04-05] MEDS: DEXTROSE 5% IN WATE 1000ML INJ 1,000 ML IV SCH (08:42)
[2016-04-05] MEDS: FERROUS SULFATE 325 MG (65 MG ELEMENTAL IRON) TAB PO SCH ×4 (08:43→17:24)
[2016-04-05] MEDS: GABAPENTIN 300 MG CAP PO SCH ×3 (08:43→21:00)
[2016-04-05] MEDS: LACTOBACILLUS ACIDOPHILUS TAB PO SCH ×2 (08:43→21:00)
[2016-04-05] MEDS: methylPREDNISolone SOD SUCC 40 MG/1 ML VIAL IV PUSH SCH (08:43)
[2016-04-05] MEDS: DILTIAZEM HCL 60 MG TAB PO SCH (08:43)
[2016-04-05] MEDS: LISINOPRIL 10 MG TAB PO SCH (08:43)
[2016-04-05] MEDS: CITALOPRAM HYDROBROMIDE 20 MG TAB PO SCH (08:43)
[2016-04-05] MEDS: HYDROCORTISONE/PRAMOXINE RECTAL FOAM 10 GM CAN RECTAL SCH ×2 (08:44→21:00)
[2016-04-05] MEDS: RESP: ALBUTEROL 2.5 MG/IPRATROPIUM 0.5 MG NEB (SCH) NEB ×4 (08:58→20:36)
[2016-04-05 09:47] LABS: BICARBONATE 23.2 MEQ/L (21.0-32.0); POTASSIUM 3.8 MEQ/L (3.5-5.1)
--- NOTE | 2016-04-05 10:33 | EKG ---
Date Performed: 04/04/2016 Time Performed: 13:48:24 PTAGE: 89 years EKG: ATRIAL FIBRILLATION INFERIOR MYOCARDIAL INFARCTION , PROBABLY OLD DIFFUSE ST CHANGES, POSSI BLE DIGITALIS EFFECT, CANNOT EXCLUDE ISCHEMIA ABNORMAL ECG Compared to prior tracing no significant c jd PREVIOUS TRACING : 04/03/2016 12.20 DOCTOR: Rodriguez Luis Interpretating Date/Time 04/05/2016 10:33:23
--- NOTE | 2016-04-05 10:45 | HHI.PR ---
Subjective Interval History awakes to voice, talking more still in mittens no fever HR elevated, 110, afib not eating much, needs to be fed Review of Systems Unable to do ROS because of her mentation and dementia Review of Systems Constitutional Constitutional: Weakness (generalized) Musculoskeletal MS: Weakness Psychiatric Psychiatric: Agitation, Anxiety Vitals/Results Intake & Output 04/04/16 04/04/16 04/05/16 15:00 23:00 07:00 Intake Total 240 ml 120 ml 240 ml Output Total 150 ml 250 ml 350 ml Balance 90 ml -130 ml -110 ml Intake Oral 240 ml 120 ml 240 ml Output Urine Total 150 ml 250 ml 350 ml # Bowel Movements 0 0 0 Vital Signs Vital Signs Date Time Temp Pulse Resp B/P Pulse Ox O2 Delivery O2 Flow Rate FiO2 04/05/16 09:01 92 Nasal Cannula 5.00 04/05/16 08:45 Nasal Cannula 4.00 Humidified 04/05/16 08:00 98.7 117 26 145/65 88 04/05/16 04:00 105 04/05/16 04:00 97.9 105 18 137/58 93 04/05/16 00:00 97.8 84 16 129/60 94 04/05/16 00:00 105 04/04/16 22:00 Nasal Cannula 4.00 Humidified 04/04/16 20:00 87 04/04/16 20:00 98.6 99 16 104/54 94 04/04/16 19:52 95 Nasal Cannula 5.00 04/04/16 16:00 99.9 95 22 113/58 94 04/04/16 12:00 98.3 106 20 129/57 83 04/04/16 11:00 94 Nasal Cannula 4.00 Humidified CBC/BMP: 04/04/16 0734 04/05/16 0701 Lab Results Laboratory Tests Test 04/05/16 07:01 Sodium Level 142 MEQ/L Potassium Level 3.8 MEQ/L Chloride Level 105 MEQ/L Carbon Dioxide Level 23.2 MEQ/L Anion Gap 14 MEQ/L Blood Urea Nitrogen 43 MG/DL Creatinine 1.26 MG/DL Estimat Glomerular Filtration 40 ML/MIN Rate Random Glucose 445 MG/DL Calcium Level 8.5 MG/DL Physical Exam General General Appearance: Well Developed, No Acute Distress, Pale, Anxious ( restlessness,. Delirium) Eyes Eye Exam: Pupils Equal, Pupils Reactive Ears & Nose Ears & Nose Exam: Nasal Mucosa [place] Throat Throat Remarks Oral mucosa pink Neck Neck Exam: Neck Supple, Trachea Midline Pulmonary Resp Exam: Diminished Breath Sounds Resp Remarks Diminished breath sounds bibasally Cardiology CV Exam: Irregular, Tachycardia Gastrointestinal/Abdomen GI Exam: Soft, Non-Tender, Bowel Sounds Present, Non-Distended Musculoskeletal MS Exam: Joints Intact, Atrophy Integumentary Skin Exam: Warm, Dry Extremeties Extremities Exam: No Edema, Pedal Pulses Palpable Neurologic Neuro Exam: Awake, Speech Clear, Moving All Extremities VTE Prophylaxis VTE Prophylaxis Device: SCDs PUD Prophylasis PUD Prophylaxis: Protonix Assessment/Plan Assessment/Plan 1. Rectal bleeding 2. dehydration. 3. UTI-proteus 4. Delirium. 5. Dementia with behavior disturbance. 6. Mild scalp contusion. 7. Leukocytosis 8. Hyperglycemia 9. Type II DM 10. Afib PLAN Continue with serial H&H, stable Restart Plavix Appreciate GI input Clear liquid diet Protonix for GI prophylaxis CT of the abdomen and pelvis completed, shows severe diverticulosis, bibasilar lung consolidation with small pleural effusions findings could represent bronchopneumonia with parapneumonic effusions. UTI, positive for Proteus Continue with Rocephin Possible pneumonia based on CT findings Continue with Rocephin and Zithromax improved today CXR reviewed, no change Wean off IV steroids Duonebs Speech recommendations noted, pureed instructed RN to please assist pt. with meals, risk of aspiration Atrial fibrillation Increase Cardizem and monitor Appreciate psychiatric input Recommends to avoid benzodiazepines and anticholinergics Ativan DCd Continue with Haldol IM for agitation d/w RN, need to remove restraints, use sitter Poor oral intake Continue with IV fluids Encourage by mouth intake staff to assist with meals Continue with Accu-Cheks before meals and at bedtime for insulin therapy Blood glucose elevated due to steroids Hypernatremia continue with D5W inc. PO water intake Uncontrolled diabetes secondary to steroid and IV fluid. DC IV fluid and taper steroid Labs reviewed mild renal insufficiency encourage by mouth intake. Will monitor Out of bed SCDs for DVT prophylaxis PPI for GI prophylaxis DNR slightly improved today Hopefully dc 2 days needs restraints removed PT for mobility D/W RN Arsalan Smith MD Apr 05, 2016 10:45
[2016-04-05] MEDS: AZITHROMYCIN INJ 500 MG in SODIUM CHLOR 0.9% 250 ML INJ 250 ML IV SCH (11:57)
[2016-04-05] MEDS: CLOPIDOGREL 75 MG TAB PO SCH (11:57)
[2016-04-05] MEDS: CHOLESTYRAMINE 4 GM PACKET PO SCH (11:58)
[2016-04-05] MEDS ORDERED: DILTIAZEM HCL 90 MG TAB PO SCH (13:00)
[2016-04-05] MEDS: PANTOPRAZOLE SODIUM 40 MG VIAL IV PUSH SCH (16:17)
--- NOTE | 2016-04-05 17:13 | PD.CARD.PN ---
Subjective Subjective Remarks she does not voice any complaints Objective Medications Current Medications Medications (Trade) Dose Ordered Sig/Dave Route Start Time Stop Time Status Last Admin (NS Flush) 2 ml UNSCH PRN FLUSH 03/31/16 11:00 (NS Flush) 2 ml BID FLUSH 03/31/16 21:00 04/04/16 09:54 (Zofran Inj) 4 mg Q6H PRN IVP 03/31/16 11:00 Naloxone HCl 0.4 mg 0.4 mg UNSCH PRN IV 03/31/16 11:00 (Rocephin Inj/NS Inj) 100 ml @ 200 mls/hr Q24H IV 04/01/16 09:00 04/05/16 08:42 (Tylenol) 650 mg Q4H PRN PO 03/31/16 11:15 (Questran 4 Gm Pkt) 4 gm DAILY@1200 PO 03/31/16 12:00 04/05/16 11:58 (CeleXA) 20 mg DAILY PO 03/31/16 11:15 04/05/16 08:43 (Aricept) 5 mg HS PO 03/31/16 21:00 04/04/16 21:59 (Ferrous Sulfate) 325 mg TID PO 03/31/16 13:00 04/05/16 16:18 (Proctofoam Hc Rectal Foam) 1 applic Q12HR RECTAL 03/31/16 11:15 04/05/16 08:44 (Lactinex) 1 tab BID PO 03/31/16 21:00 04/05/16 08:43 (Synthroid) 200 mcg DAILY@0600 PO 03/31/16 11:15 04/05/16 06:33 (Prinivil) 10 mg DAILY PO 03/31/16 11:15 04/05/16 08:43 (Imodium) 2 mg Q3HR PRN PO 03/31/16 11:15 (Desyrel) 50 mg HS PRN PO 03/31/16 21:00 Patient Own Medication 1 ea BID PO 03/31/16 21:00 Hold Patient Own Medication 14 ea DAILY PO 03/31/16 11:15 Hold (Haldol Inj) 2 mg Q6H PRN IM 03/31/16 11:15 04/02/16 11:15 (Vasotec Inj) 1.25 mg Q6H PRN IV 03/31/16 11:15 03/31/16 13:47 (Catapres) 0.1 mg Q6H PRN PO 03/31/16 11:15 (Protonix Inj) 40 mg Q24H IV PUSH 03/31/16 16:00 04/05/16 16:17 (D50w (Vial) Inj) 25 ml UNSCH PRN IV PUSH 04/02/16 00:15 Glucagon 1 mg 1 mg UNSCH PRN OTHER 04/02/16 00:15 (Zithromax Inj/ NS 250 ml Inj) 250 ml @ 250 mls/hr Q24H IV 04/02/16 11:00 04/05/16 11:57 (Deltasone) 20 mg BID PO 04/05/16 21:00 (Plavix) 75 mg DAILY PO 04/05/16 11:00 04/05/16 11:57 (Neurontin) 300 mg Q12HR PO 04/05/16 21:00 (Cardizem) 60 mg Q6HR PO 04/05/16 18:00 Vital Signs / I&O Vital Signs Date Time Temp Pulse Resp B/P Pulse Ox O2 Delivery O2 Flow Rate FiO2 04/05/16 16:00 98.0 103 20 92/52 97 04/05/16 15:59 Nasal Cannula 5.00 04/05/16 09:01 92 Nasal Cannula 5.00 04/05/16 08:45 Nasal Cannula 4.00 Humidified 04/05/16 08:07 114 04/05/16 08:00 98.7 117 26 145/65 88 04/05/16 04:00 105 04/05/16 04:00 97.9 105 18 137/58 93 04/05/16 00:00 97.8 84 16 129/60 94 04/05/16 00:00 105 04/04/16 22:00 Nasal Cannula 4.00 Humidified 04/04/16 20:00 87 04/04/16 20:00 98.6 99 16 104/54 94 04/04/16 19:52 95 Nasal Cannula 5.00 I/O 04/04/16 04/04/16 04/04/16 04/05/16 04/05/16 04/05/16 07:00 15:00 23:00 07:00 15:00 23:00 Intake Total 532 ml 240 ml 120 ml 240 ml 414 ml Output Total 200 ml 150 ml 250 ml 350 ml 500 ml Balance 332 ml 90 ml -130 ml -110 ml -86 ml Intake Oral 50 ml 240 ml 120 ml 240 ml IV Total 482 ml 414 ml Output Urine Total 200 ml 150 ml 250 ml 350 ml 500 ml # Bowel Movements 0 0 0 0 0 Physical Exam lethargic chest clear anteriorly CV S1S2 irr irr ext well perfused Laboratory Laboratory Tests Test 04/05/16 07:01 Sodium Level 142 MEQ/L Potassium Level 3.8 MEQ/L Chloride Level 105 MEQ/L Carbon Dioxide Level 23.2 MEQ/L Anion Gap 14 MEQ/L Blood Urea Nitrogen 43 MG/DL Creatinine 1.26 MG/DL Estimat Glomerular Filtration 40 ML/MIN Rate Random Glucose 445 MG/DL Calcium Level 8.5 MG/DL Assessment and Plan Problem List: (1) Paroxysmal a-fib Assessment and Plan: Change cardizem in AM to 240mg CD daily/ monitor BP. Rodriguez Luis MD Apr 05, 2016 17:13
[2016-04-05] MEDS ORDERED: DILTIAZEM HCL 60 MG TAB PO SCH (18:00)
[2016-04-05] MEDS: DONEPEZIL HCL 5 MG TAB PO SCH (21:00)
[2016-04-05] MEDS: predniSONE 20 MG TAB PO SCH (21:00)
[2016-04-06] VITALS (7 sets, daily range): BP systolic 102–115; BP diastolic 53–85; PULSE 84–124; RESP 18–24; TEMP 95.8–98.3; O2SAT 92–96
[2016-04-06] MEDS: LEVOTHYROXINE SODIUM 200 MCG TAB PO SCH (06:00)
[2016-04-06] MEDS: INSULIN ASPART SUPPLEMENTAL SCALE SQ SCH ×4 (06:54→20:10)
[2016-04-06] MEDS ORDERED: DILTIAZEM HCL 60 MG TAB PO SCH (07:00)
[2016-04-06] MEDS: RESP: ALBUTEROL 2.5 MG/IPRATROPIUM 0.5 MG NEB (SCH) NEB ×2 (07:42→11:36)
[2016-04-06] MEDS: HYDROCORTISONE/PRAMOXINE RECTAL FOAM 10 GM CAN RECTAL SCH ×2 (09:00→20:09)
[2016-04-06] MEDS ORDERED: DILTIAZEM-CD 240 MG CAP ER PO SCH (09:00)
[2016-04-06] MEDS: LACTOBACILLUS ACIDOPHILUS TAB PO SCH ×2 (09:27→20:09)
[2016-04-06] MEDS: cefTRIAXone INJ 1,000 MG in SODIUM CHLORIDE 0.9% INJ 100 ML IV SCH (09:27)
[2016-04-06] MEDS: SODIUM CHLORIDE 0.9% FLUSH 5 ML FLUSH FLUSH SCH ×2 (09:27→20:09)
[2016-04-06] MEDS: FERROUS SULFATE 325 MG (65 MG ELEMENTAL IRON) TAB PO SCH ×3 (09:28→18:41)
[2016-04-06] MEDS: LISINOPRIL 10 MG TAB PO SCH (09:28)
[2016-04-06] MEDS: GABAPENTIN 300 MG CAP PO SCH ×2 (09:28→20:09)
[2016-04-06] MEDS: CITALOPRAM HYDROBROMIDE 20 MG TAB PO SCH (09:28)
[2016-04-06] MEDS: CLOPIDOGREL 75 MG TAB PO SCH (09:28)
[2016-04-06] MEDS: predniSONE 20 MG TAB PO SCH ×2 (09:28→20:09)
[2016-04-06] MEDS ORDERED: DILTIAZEM HCL 30 MG TAB PO ONE (11:30)
--- NOTE | 2016-04-06 12:07 | HHI.PR ---
Subjective Subjective Remarks Non-oriented restlessness continues randomly, more alert Responding more to verbal stimuli No SOB No acute pain Appetite good (Jennifer Painter) Review of Systems Constitutional Constitutional: Weakness (generalized) Constitutional Remarks 10 point ROS attempted, patient unable to parcipate. (Jennifer Painter) Musculoskeletal MS: Weakness (Jennifer Painter) Psychiatric Psychiatric: Agitation, Anxiety Psychiatric Remarks Delirium (Jennifer Painter) Vitals/Results Intake & Output 04/05/16 04/05/16 04/06/16 15:00 23:00 07:00 Intake Total 414 ml 0 ml 520 ml Output Total 500 ml Balance -86 ml 0 ml 520 ml Intake Oral 0 ml 520 ml IV Total 414 ml Output Urine Total 500 ml # Voids 0 0 # Bowel Movements 0 0 0 Vital Signs Vital Signs Date Time Temp Pulse Resp B/P Pulse Ox O2 Delivery O2 Flow Rate FiO2 04/06/16 08:00 97.5 120 18 110/54 92 04/06/16 07:43 92 Nasal Cannula 5.00 04/06/16 04:18 98.1 113 20 115/85 95 04/05/16 23:04 97.9 75 18 134/63 98 04/05/16 20:38 92 Nasal Cannula 5.00 04/05/16 20:00 98.7 76 20 112/54 99 04/05/16 20:00 70 04/05/16 19:00 Nasal Cannula 5.00 04/05/16 16:00 98.0 103 20 92/52 97 04/05/16 15:59 Nasal Cannula 5.00 (Jennifer Painter) CBC/BMP: 04/04/16 0734 04/05/16 0701 Current Medications Active Medications Diltiazem HCl (Cardizem Cd) 240 mg DAILY PO; Start 04/06/16 at 09:00; Stop 04/06 at 09:00; Status DC Diltiazem HCl (Cardizem) 30 mg ONCE ONCE PO; Start 04/06/16 at 11:30; Stop at 11:31; Status DC Diltiazem HCl (Cardizem) 60 mg Q6HR PO; Start 04/05/16 at 18:00; Stop 04/05/16 at 20:08; Status DC Diltiazem HCl (Cardizem) 60 mg TID PO Last administered on 04/06/16 06:54; Admin Dose 60 MG; Start 04/06/16 at 07:00; Stop 04/06/16 at 11:23; Status DC Diltiazem HCl (Cardizem) 90 mg TID PO Last administered on 04/05/16 11:57; Admin Dose 90 MG; Start 04/05/16 at 13:00; Stop 04/05/16 at 16:21; Status DC Diltiazem HCl (Cardizem) 90 mg TID PO; Start 04/06/16 at 13:00 Gabapentin (Neurontin) 300 mg Q12HR PO Last administered on 04/06/16 09:28; Admin Dose 300 MG; Start 04/05/16 at 21:00 Prednisone (Deltasone) 20 mg BID PO Last administered on 04/06/16 09:28; Admin Dose 20 MG; Start 04/05/16 at 21:00 (Jennifer Painter) Physical Exam General General Appearance: Well Developed, No Acute Distress, Pale, Anxious ( restlessness,. Delirium) Appearance Remarks Frail (Jennifer Painter) Eyes Eye Exam: Pupils Equal, Pupils Reactive (Jennifer PainterP) Ears & Nose Ears & Nose Exam: Nasal Mucosa [place] (Jennifer PainterP) Throat Throat Exam: Oral Mucosa [place] & Moist (Jennifer PainterP) Neck Neck Exam: Neck Supple, Trachea Midline (Jennifer PainterP) Pulmonary Resp Exam: Diminished Breath Sounds Resp Remarks Decreased breath sounds bilateral Rhonchi (Jennifer Painter BURIAL AGENT) Cardiology CV Exam: Irregular, Tachycardia (Jennifer PainterP) Gastrointestinal/Abdomen GI Exam: Soft, Non-Tender, Bowel Sounds Present, Non-Distended (Jennifer Painter BURIAL AGENT) Genitourinary Remarks [place] clear yellow urine (Jennifer PainterP) Musculoskeletal MS Exam: Joints Intact, Atrophy (Jennifer PainterP) Integumentary Skin Exam: Warm, Dry Skin Remarks thin turgor (InocencioJennifer M. BURIAL AGENT) Extremeties Extremities Exam: No Edema, Pedal Pulses Palpable ([place] M. BURIAL AGENT) Neurologic Neuro Exam: Awake, Speech Clear, Moving All Extremities Neuro Remarks Restless in peaking at IV site, more alert and improving. She asked for bedpan today, and had bowel movement instead of being incontinent ([place] M. BURIAL AGENT) VTE Prophylaxis VTE Prophylaxis Device: SCDs ([place] M. BURIAL AGENT) PUD Prophylasis PUD Prophylaxis: Protonix ([place] M. BURIAL AGENT) Assessment/Plan Assessment/Plan 1. Rectal bleeding 2. dehydration. 3. UTI-proteus 4. Delirium. 5. Dementia with behavior disturbance. 6. Mild scalp contusion. 7. Leukocytosis 8. Hyperglycemia 9. Type II DM 10. Afib PLAN Continue with serial H&H, stable Restart Plavix Appreciate GI input Clear liquid diet Protonix for GI prophylaxis CT of the abdomen and pelvis completed, shows severe diverticulosis, bibasilar lung consolidation with small pleural effusions findings could represent bronchopneumonia with parapneumonic effusions. UTI, positive for Proteus Continue with Rocephin Possible pneumonia based on CT findings Continue with Rocephin and Zithromax improved today CXR reviewed, no change Wean off IV steroids Duonebs Speech recommendations noted, pureed instructed RN to please assist pt. with meals, risk of aspiration Atrial fibrillation Increase Cardizem and monitor Appreciate psychiatric input Recommends to avoid benzodiazepines and anticholinergics Ativan DCd Continue with Haldol IM for agitation d/w RN, need to remove restraints, use sitter Poor oral intake Continue with IV fluids Encourage by mouth intake staff to assist with meals Continue with Accu-Cheks before meals and at bedtime for insulin therapy Blood glucose elevated due to steroids Hypernatremia continue with D5W inc. PO water intake Uncontrolled diabetes secondary to steroid and IV fluid. DC IV fluid and taper steroid Labs reviewed mild renal insufficiency encourage by mouth intake. Will monitor Out of bed SCDs for DVT prophylaxis PPI for GI prophylaxis DNR slightly improved today Hopefully dc 2 days needs restraints removed PT for mobility D/W RN D/W Dr. Smith, patient seen on his behalf ([place]) Assessment/Plan Patient seen and examined as above Labs reviewed Medications reviewed Notes reviewed Plan of care discussed with DAINA Increase Cardizem because of increased heart rate Try to get off of maintenance and restraints Discussed with RN (Arsalan Smith MD) Jennifer Painter Apr 06, 2016 12:06 Arsalan Smith MD Apr 06, 2016 12:24
[2016-04-06] MEDS: CHOLESTYRAMINE 4 GM PACKET PO SCH (12:33)
[2016-04-06] MEDS: AZITHROMYCIN INJ 500 MG in SODIUM CHLOR 0.9% 250 ML INJ 250 ML IV SCH (12:33)
[2016-04-06] MEDS: DILTIAZEM HCL 90 MG TAB PO SCH ×2 (12:41→18:41)
[2016-04-06 17:23] LABS: HEMATOCRIT 28.4 % (35.0-46.0); MEAN CORPUSCULAR HEMOGLOBIN 28.9 PG (27.0-34.0); MEAN CORPUSCULAR HGB CONC 31.7 % (32.0-36.0); PLATELET COUNT 188 TH/MM3 (150-450); RED BLOOD COUNT 3.12 MIL/MM3 (4.00-5.30); RED CELL DISTRIBUTION WIDTH 24.5 % (11.6-17.2); REVIEW FLAG FINAL; WHITE BLOOD COUNT 16.2 TH/MM3 (4.0-11.0)
[2016-04-06 17:43] LABS: BICARBONATE 23.4 MEQ/L (21.0-32.0); POTASSIUM 3.6 MEQ/L (3.5-5.1)
[2016-04-06] MEDS: PANTOPRAZOLE SODIUM 40 MG VIAL IV PUSH SCH (18:41)
[2016-04-06] MEDS: DONEPEZIL HCL 5 MG TAB PO SCH (20:09)
[2016-04-07] VITALS: BP 102/53; PULSE 88; RESP 20; TEMP 97.8; O2SAT 97
[2016-04-07 04:00] VITALS: BP 121/65; PULSE 90; RESP 20; TEMP 97.4; O2SAT 98
[2016-04-07] MEDS: LEVOTHYROXINE SODIUM 200 MCG TAB PO SCH (05:49)
[2016-04-07] MEDS: INSULIN ASPART SUPPLEMENTAL SCALE SQ SCH ×3 (05:58→16:35)
[2016-04-07 08:05] VITALS: BP 132/68; PULSE 93; RESP 20; TEMP 98.1; O2SAT 100
[2016-04-07] MEDS: SODIUM CHLORIDE 0.9% FLUSH 5 ML FLUSH FLUSH SCH (08:54)
[2016-04-07] MEDS: cefTRIAXone INJ 1,000 MG in SODIUM CHLORIDE 0.9% INJ 100 ML IV SCH (08:55)
[2016-04-07] MEDS: LACTOBACILLUS ACIDOPHILUS TAB PO SCH (08:55)
[2016-04-07] MEDS: FERROUS SULFATE 325 MG (65 MG ELEMENTAL IRON) TAB PO SCH ×2 (08:55→12:10)
[2016-04-07] MEDS: DILTIAZEM HCL 90 MG TAB PO SCH ×2 (08:55→12:10)
[2016-04-07] MEDS: CLOPIDOGREL 75 MG TAB PO SCH (08:56)
[2016-04-07] MEDS: GABAPENTIN 300 MG CAP PO SCH (08:56)
[2016-04-07] MEDS: CITALOPRAM HYDROBROMIDE 20 MG TAB PO SCH (08:56)
[2016-04-07] MEDS: predniSONE 20 MG TAB PO SCH (08:56)
[2016-04-07] MEDS: LISINOPRIL 10 MG TAB PO SCH (08:59)
[2016-04-07] MEDS: AZITHROMYCIN INJ 500 MG in SODIUM CHLOR 0.9% 250 ML INJ 250 ML IV SCH (09:55)
[2016-04-07] MEDS: HYDROCORTISONE/PRAMOXINE RECTAL FOAM 10 GM CAN RECTAL SCH (10:10)
--- NOTE | 2016-04-07 10:26 | HHI.PR ---
Subjective Interval History Patient is feeling good Looking happy Offering no complaint More talkative Speech therapist at bedside diet as per speech therapist Moving all her extremities Limited review of system because of her mentation/dementia Review of Systems Constitutional Constitutional: Weakness (generalized) Musculoskeletal MS: Weakness Psychiatric Psychiatric: Agitation, Anxiety Vitals/Results Intake & Output 04/06/16 04/06/16 04/07/16 15:00 23:00 07:00 Intake Total 720 ml 120 ml Balance 720 ml 120 ml Intake Oral 720 ml 120 ml # Voids 1 3 # Bowel Movements 1 0 Vital Signs Vital Signs Date Time Temp Pulse Resp B/P Pulse Ox O2 Delivery O2 Flow Rate FiO2 04/07/16 09:10 Nasal Cannula 5.00 04/07/16 08:05 98.1 93 20 132/68 100 04/07/16 04:00 97.4 90 20 121/65 98 04/07/16 00:00 97.8 88 20 102/53 97 04/06/16 20:02 95.8 84 24 102/55 93 04/06/16 19:00 Nasal Cannula 5.00 04/06/16 18:34 96 Nasal Cannula 21 04/06/16 16:00 98.1 124 18 112/53 95 04/06/16 12:00 98.3 122 18 110/60 96 CBC/BMP: 04/06/16 1700 04/06/16 1700 Lab Results Laboratory Tests Test 04/06/16 17:00 White Blood Count 16.2 TH/MM3 Red Blood Count 3.12 MIL/MM3 Hemoglobin 9.0 GM/DL Hematocrit 28.4 % Mean Corpuscular Volume 91.0 FL Mean Corpuscular Hemoglobin 28.9 PG Mean Corpuscular Hemoglobin 31.7 % Concent Red Cell Distribution Width 24.5 % Platelet Count 188 TH/MM3 Mean Platelet Volume 8.7 FL Sodium Level 138 MEQ/L Potassium Level 3.6 MEQ/L Chloride Level 103 MEQ/L Carbon Dioxide Level 23.4 MEQ/L Anion Gap 12 MEQ/L Blood Urea Nitrogen 49 MG/DL Creatinine 1.53 MG/DL Estimat Glomerular Filtration 32 ML/MIN Rate Random Glucose 259 MG/DL Calcium Level 8.5 MG/DL Physical Exam General General Appearance: Well Developed, No Acute Distress, Pale, Anxious ( restlessness,. Delirium) Eyes Eye Exam: Pupils Equal, Pupils Reactive Ears & Nose Ears & Nose Exam: Nasal Mucosa [place] Throat Throat Exam: Oral Mucosa [place] & Moist Throat Remarks Oral mucosa pink Neck Neck Exam: Neck Supple, Trachea Midline Pulmonary Resp Exam: Clear Bilaterally, Breath Sounds Equal Cardiology CV Exam: Irregular CV Remarks S1 and S2 audible Gastrointestinal/Abdomen GI Exam: Soft, Non-Tender, Bowel Sounds Present, Non-Distended Musculoskeletal MS Exam: Joints Intact, Atrophy Integumentary Skin Exam: Warm, Dry Extremeties Extremities Exam: No Edema, Pedal Pulses Palpable Neurologic Neuro Exam: Awake, Speech Clear, Moving All Extremities VTE Prophylaxis VTE Prophylaxis Device: SCDs PUD Prophylasis PUD Prophylaxis: Protonix Assessment/Plan Assessment/Plan Continue with serial H&H, stable Plavix Appreciate GI input Clear liquid diet Protonix for GI prophylaxis CT of the abdomen and pelvis completed, shows severe diverticulosis, bibasilar lung consolidation with small pleural effusions findings could represent bronchopneumonia with parapneumonic effusions. UTI, positive for Proteus Continue with antibiotic Possible pneumonia based on CT findings Continue with antibiotic is at CXR reviewed Wean steroids Duonebs Speech recommendations noted instructed RN to please assist pt. with meals, risk of aspiration Atrial fibrillation Control on Cardizem Appreciate psychiatric input Recommends to avoid benzodiazepines and anticholinergics Ativan DCd Haldol IM for agitation Off of restraints, more than 24-hour as discussed with RN Poor oral intake Encourage by mouth intake staff to assist with meals Continue with Accu-Cheks before meals and at bedtime for insulin therapy Blood glucose elevated due to steroids Hypernatremia improved inc. PO water intake Labs reviewed mild renal insufficiency encourage by mouth intake Out of bed PPI for GI prophylaxis DNR Looking at better today overall stable can do DC today PT for mobility Discussed with RN discussed with family independence case manager Total time spent in DC planning and management of this patient is more than 45 minutes Arsalan Smith MD Apr 07, 2016 10:26
[2016-04-07] MEDS ORDERED: PRED20 PO (10:33)
[2016-04-07] MEDS ORDERED: DILT90TA PO (10:33)
[2016-04-07] MEDS ORDERED: CARD240C6 PO (10:33)
[2016-04-07 12:05] VITALS: BP 113/54; PULSE 112; RESP 20; TEMP 97.4; O2SAT 100
[2016-04-07] MEDS: CHOLESTYRAMINE 4 GM PACKET PO SCH (12:10)
--- NOTE | 2016-04-07 16:57 | HHI.DS ---
Discharge Summary Admission Date Apr 03, 2016 at 09:16 Discharge Date: Apr 07, 2016 Admitting Diagnosis LOWER GI BLEED, UTI Brief History This was a 89-year-old white female who was brought in from her [facility] setting with positive for rectal bleeding which was noted sometime during the night before admission, according to the record. There was no family present and the patient was unable to give any history or data. She was currently agitated, restrained and delirious. According to the record she had no nausea and vomiting, no known fever and the patient's record does note her dementia. Nurse stated that she had some dark bleeding noted, moderate amount noted on a pad since admission to the ER. The patient currently was not responding to verbal or tactile stimuli. CBC/BMP: 04/06/16 1700 04/06/16 1700 Significant Findings Laboratory Tests Test 04/05/16 04/06/16 07:01 17:00 Blood Urea Nitrogen 43 MG/DL (7-18) 49 MG/DL (7-18) Creatinine 1.26 MG/DL 1.53 MG/DL (0.50-1.00) (0.50-1.00) Estimat Glomerular Filtration 40 ML/MIN (>89) 32 ML/MIN (>89) Rate Random Glucose 445 MG/DL 259 MG/DL (74-106) (74-106) White Blood Count 16.2 TH/MM3 (4.0-11.0) Red Blood Count 3.12 MIL/MM3 (4.00-5.30) Hemoglobin 9.0 GM/DL (11.6-15.3) Hematocrit 28.4 % (35.0-46.0) Mean Corpuscular Hemoglobin 31.7 % Concent (32.0-36.0) Red Cell Distribution Width 24.5 % (11.6-17.2) Imaging Last Impressions Chest X-Ray 04/05/16 0600 Signed Impressions: Service Date/Time: Tuesday, April 05, 2016 05:52 - CONCLUSION: 1. Cardiomegaly and findings of congestive heart failure. The findings have worsened when compared with the prior examination. Prashanth Styles MD Abdomen/Pelvis CT 04/01/16 1448 Signed Impressions: Service Date/Time: Friday, April 01, 2016 16:45 - CONCLUSION: 1. Basilar lung consolidation with small pleural effusions. Findings could represent bronchopneumonia with parapneumonic effusions. 2. Severe colonic diverticulosis , especially sigmoid. 3. The Martins catheter is present in decompressed bladder. Pablo Naiper MD PE at Discharge Head, normocephalic Throat Exam: Oral Mucosa Herman & Moist Throat Remarks Oral mucosa pink Neck Exam: Neck Supple, Trachea Midline Resp Exam: Clear Bilaterally, Breath Sounds Equal CV Exam: Irregular CV Remarks S1 and S2 audible GI Exam: Soft, Non-Tender, Bowel Sounds Present, Non-Distended MS Exam: Joints Intact, Atrophy Skin Exam: Warm, Dry Extremities Exam: No Edema, Pedal Pulses Palpable Neuro Exam: Awake, Speech Clear, Moving All Extremities VTE Prophylaxis Device: SCDs PUD Prophylaxis: Protonix Hospital Course These are the diagnosis use to treat her plan of care. 1. Rectal bleeding 2. dehydration. 3. UTI-proteus 4. Delirium. 5. Dementia with behavior disturbance. 6. Mild scalp contusion. 7. Leukocytosis 8. Hyperglycemia 9. Type II DM 10. Afib Plan of care Continued with serial H&H, stable Plavix added to her medical regimen Appreciate GI input consultation for rectal bleeding Clear liquid diet, initiated for trial. Patient tolerated without any difficulty Protonix for GI prophylaxis CT of the abdomen and pelvis completed, shows severe diverticulosis, bibasilar lung consolidation with small pleural effusions findings could represent bronchopneumonia with parapneumonic effusions. UTI was positive for Proteus Continued with antibiotic, Rocephin Possible pneumonia based on CT findings Continue with antibiotic azithromycin and Rocephin. CXR reviewed Wean steroids over a 24-hour period Duonebs when necessary Speech therapy consulted. Her recommendations noted. instructed RN to please assist pt. with meals, risk of aspiration. Atrial fibrillation rhythm was Controled on Cardizem Appreciate psychiatric input Recommends to avoid benzodiazepines and anticholinergics Ativan DCd Haldol IM for agitation Off of restraints, more than 24-hour as discussed with RN. No difficulty noted. Poor oral intake Encourage by mouth intake staff to assist with meals Continue with Accu-Cheks before meals and at bedtime for insulin therapy Blood glucose elevated due to steroids Hypernatremia improved while monitoring her labs. This allowed us to Encourage her PO water intake. Labs reviewed mild renal insufficiency, encouraged her by mouth intake Out of bed with assistance to increase her mobility PPI for GI prophylaxis DNR CODE STATUS per her and family request Looking at better today overall . stable so we can do her DC today PT to assist with her mobility Discussed with her RN discussed with west yard manager Apr 07, 2016 10:26 Pt Condition on Discharge: Fair Discharge Disposition: Discharge to SNF Discharge Instructions DIET: Follow Instructions for: Diabetic Diet Speech Therapy-Diet Recommends: Honey Thickened Liquids, Pureed Activities you can perform: Weight Bearing as Venancio Follow up Referrals: PCP Follow-up - 3-5 Days Psychiatry Adult - 1 Week New Medications: Diltiazem CD 24 HR (Cardizem CD 24 HR) 240 Mg Caper 240 MG PO DAILY Start from April 08 morning tachyarrhythmia #30 Ref 0 CAP Diltiazem (Diltiazem) 90 Mg Tab 90 MG PO TID tachyarrhythmia #2 TAB Prednisone (Prednisone) 20 Mg Tab 20 MG PO BID inflammation #7 TAB Continued Medications: Acetaminophen (Tylenol) 325 Mg Tab 650 MG PO Q4H PRN PAIN 1-10 AND/OR FEVER >101F Ref 0 TAB Cholestyramine (Cholestyramine) 4 Gm/Pkt Powd 4 GM PO DAILY@1200 health #30 Ref 0 PACK Citalopram (Celexa) 20 Mg Tab 20 MG PO DAILY health #30 Ref 0 TAB Clopidogrel (Plavix) 75 Mg Tab 75 MG PO DAILY health #30 Ref 0 TAB Dextromethorphan HBr-Quinidine (Nuedexta 20-10 mg) 1 Cap Cap 1 CAP PO BID Pseudobulbar Affect #60 Ref 0 CAP Diphenoxylate-Atropine (Lomotil) 2.5-0.025 Mg Tab 1 TAB PO DAILY PRN LOOSE STOOL Ref 0 TAB Donepezil (Aricept) 5 Mg Tab 5 MG PO HS health #30 Ref 0 TAB Ferrous Sulfate (Ferrousul) 325 Mg Tab 325 MG PO TID Anemia Gabapentin (Gabapentin) 300 Mg Cap 300 MG PO TID Nueropathy #90 Ref 0 CAP Glipizide (Glipizide) 10 Mg Tab 10 MG PO DAILYAC health #30 Ref 0 TAB Hydrocortisone-Pramoxine Rectal (Proctofoam Hc Rectal) 1-1% Foam 1 APPLIC RECTAL Q12HR health #60 Ref 0 FOAM Insulin Aspart Inj (Novolog Inj) 1,000 Unit/10 Ml Vial 0 SQ ACHS Sliding Scale as directed: if <70 call MD, 151-200=2 units, 201-250=4 units, 251-300=6 units, 301-350=8 units, 351-400=10 units, >400=12 units and call Blood Sugar Management #10 Ref 0 ML Insulin Detemir Inj (Levemir Inj) 1,000 unit/ 10 ML Vial 18 UNITS SQ DAILY health #1 Ref 0 INJECTION Lactobacillus Acidophilus (Probiotic) 1 Cap Cap 1 CAP PO BID Diarrhea #90 Ref 0 CAP Levothyroxine (Synthroid) 200 Mcg Tab 200 MCG PO DAILY@0600 health #30 Ref 0 TAB Lisinopril (Lisinopril) 10 Mg Tab 10 MG PO DAILY health #30 Ref 0 TAB Loperamide (Imodium A-D) 2 Mg Cap 2 MG PO Q3HR Give 2x2mg at onset of diarrhea and then 1 with each loose stool ( max 8 caps/24hrs. Notify MD if any blood in stool or diarrhea persists more than 4 days PRN DIARRHEA Ref 0 CAP Memantine Er (Namenda Xr) 14 Mg Caper 14 MG PO DAILY Alzheimer Disease #30 Ref 0 CAP Metformin (Metformin) 500 Mg Tab 500 MG PO BID With meals Blood Sugar Management #60 Ref 0 TAB Ondansetron (Zofran) 4 Mg Tab 4 MG PO Q6HR PRN NAUSEA OR VOMITING Ref 0 TAB Ranitidine HCl (Sm Acid Public Welfare Director) 75 Mg Tab 75 MG PO BID Reflux Tizanidine (Zanaflex) 4 Mg Tab 4 MG PO HS health #30 Ref 0 TAB Trazodone (Trazodone) 50 Mg Tab 50 MG PO HS PRN INSOMNIA #30 Ref 0 TAB Discontinued Medications: Lorazepam (Ativan) 0.5 Mg Tab 0.5 MG PO TID Anxiety Ref 0 TAB Lorazepam (Ativan) 0.5 Mg Tab 0.5 MG PO Q8H PRN ANXIETY AND/OR AGITATION Ref 0 TAB Jennifer Painter Apr 07, 2016 16:57
== END 2016-04-07 18:30 | DRG 377 ==
LOC: NEPE 07:28 → NEDA 09:48 → NEDH 13:32 → N04A 17:23 → OBSVTOIN 04-03 09:16 → N04B 04-05 14:45
PROVIDERS: ADMIT Specialist; ATTEND Specialist
PROC: 0T9B70Z Drainage of Bladder with Drainage Device, Via Natural or Artificial Opening (ICD-10-PCS; principal; 2016-03-31)
DX: K92.1 Melena (principal); J18.0 Bronchopneumonia, unspecified organism; N17.9 Acute kidney failure, unspecified; E87.0 Hyperosmolality and hypernatremia; F05 Delirium due to known physiological condition; N39.0 Urinary tract infection, site not specified; I48.0 Paroxysmal atrial fibrillation; E11.65 Type 2 diabetes mellitus with hyperglycemia; S00.03XA Contusion of scalp, initial encounter; D64.89 Other specified anemias; F03.91 Unspecified dementia, unspecified severity, with behavioral disturbance; E86.0 Dehydration; I10 Essential (primary) hypertension; F32.9 Major depressive disorder, single episode, unspecified; Z86.73 Personal history of transient ischemic attack (TIA), and cerebral infarction without residual deficits; Z79.4 Long term (current) use of insulin; K64.9 Unspecified hemorrhoids; Z78.1 Physical restraint status; F41.9 Anxiety disorder, unspecified; X58.XXXA Exposure to other specified factors, initial encounter; Y93.9 Activity, unspecified; Y92.9 Unspecified place or not applicable; Z79.02 Long term (current) use of antithrombotics/antiplatelets; E03.9 Hypothyroidism, unspecified; B96.4 Proteus (mirabilis) (morganii) as the cause of diseases classified elsewhere; K57.30 Diverticulosis of large intestine without perforation or abscess without bleeding; Z66 Do not resuscitate; T38.0X5A Adverse effect of glucocorticoids and synthetic analogues, initial encounter
CPT/HCPCS: 51702; 71010; 74176; 76937; 80048; 80053; 81001; 82948; 84443; 85014; 85018; 85025; 85027; 85610; 85730; 86850; 86900; 86901; 87077; 87086; 87186; 93005; 93306; 94640; 94664; 96365; 96372; 96375; 96376; C9113; G0378; G8996-GN; G8997-GN; G8998-GN; J0456; J0696; J1630; J1815; J1940; J2060; J2920; J3480; J7030; J7050; J7070; J7512

== ENCOUNTER 2016-04-19 00:38 | Inpatient (IN) | payer MEDICARE, OTHER ==
[2016-04-19] VITALS (16 sets, daily range): BP systolic 86–146; BP diastolic 41–68; PULSE 55–78; RESP 14–26; TEMP 96–98.3; O2SAT 93–100
[~2016-04-19] VITALS: Ht 162.6 cm; Wt 58.3 kg
[~2016-04-19 00:38] MED LIST changes: -ABH GEL TOP; +CARD240C6 PO; +DILT90TA PO; +FERR325T86 PO; +GABA300C5 PO; +LOPE7.5C PO; -METF500 PO; +METF500T PO; -NEUR300C PO; +NUED20CA PO; -PANT20 PO; +PRED20 PO; +TRAZ50TA12 PO
[2016-04-19] MEDS ORDERED: SODIUM CHLOR 0.9% 1000 ML INJ 800 ML IV ONE (00:45)
[2016-04-19] MEDS ORDERED: SODIUM CHLOR 0.9% 1000 ML INJ 1,000 ML IV ONE (00:45)
--- NOTE | 2016-04-19 01:14 | PD ---
HPI Chief Complaint: Abnormal Results Time Seen by Provider: 00:45 Travel History International Travel<30 days: No Contact w/Intl Traveler<30days: No Traveled to known affect area: No History of Present Illness HPI 89-year-old female with history of dementia, diabetes, brought in by ambulance from [facility] for evaluation of low blood pressure, elevated glucose, and agitation. The patient is a poor historian and does not provide any history.. According to EMS her blood glucose is in the 300s and her blood pressure 70s over 40s. PFSH Past Medical History Anxiety: No Depression: Yes Cancer: No Cardiac Catheterization: Yes Cardiovascular Problems: No Cerebrovascular Accident: Yes Dementia: Yes Diabetes: Yes Patient Takes Glucophage: No Diminished Hearing: No Endocrine: Yes Genitourinary: No Headaches: No Hypertension: Yes Immune Disorder: No Musculoskeletal: No Neurologic: Yes Psychiatric: No Reproductive: No Respiratory: No Seizures: No Sickle Cell Disease: No Thyroid Disease: Yes Tetanus Vaccination: Unknown ?: Not Menopausal: Yes Past Surgical History Abdominal Surgery: No AICD: No Cardiac Surgery: No Ear Surgery: No Endocrine Surgery: No Eye Surgery: No Genitourinary Surgery: No Gynecologic Surgery: No Oral Surgery: No Pacemaker: No Thoracic Surgery: No Other Surgery: Yes (RIGHT BIG RIGHT TOE AMPUTATED ) Social History Alcohol Use: No Tobacco Use: No Substance Use: No Allergies-Medications (Allergen,Severity, Reaction): Coded Allergies: No Known Allergies (Verified , 04/19/16) Reported Meds & Prescriptions Reported Meds & Active Scripts Active Cardizem CD 24 HR (Diltiazem CD 24 HR) 240 Mg Caper 240 Mg PO DAILY Start from April 08 morning Prednisone 20 Mg Tab 20 Mg PO BID Diltiazem (Diltiazem HCl) 90 Mg Tab 90 Mg PO TID Zanaflex (Tizanidine HCl) 4 Mg Tab 4 Mg PO HS Lisinopril 10 Mg Tab 10 Mg PO DAILY Synthroid (Levothyroxine Sodium) 200 Mcg Tab 200 Mcg PO DAILY@0600 Levemir Inj (Insulin Detemir) 1,000 unit/ 10 ML Vial 18 Units SQ DAILY Proctofoam Hc Rectal (Hydrocortisone/Pramoxine) 1-1% Foam 1 Applic RECTAL Q12HR Glipizide 10 Mg Tab 10 Mg PO DAILYAC Aricept (Donepezil) 5 Mg Tab 5 Mg PO HS Plavix (Clopidogrel Bisulfate) 75 Mg Tab 75 Mg PO DAILY Celexa (Citalopram Hydrobromide) 20 Mg Tab 20 Mg PO DAILY Cholestyramine 4 Gm/Pkt Powd 4 Gm PO DAILY@1200 Reported Trazodone (Trazodone HCl) 50 Mg Tab 50 Mg PO HS PRN Imodium A-D (Loperamide HCl) 2 Mg Cap 2 Mg PO Q3HR PRN Give 2x2mg at onset of diarrhea and then 1 with each loose stool (max 8 caps/24hrs. Notify MD if any blood in stool or diarrhea persists more than 4 days Gabapentin 300 Mg Cap 300 Mg PO TID Ferrousul (Ferrous Sulfate) 325 Mg Tab 325 Mg PO TID Nuedexta 20-10 mg (Dextromethorphan HBr-Quinidine) 1 Cap Cap 1 Cap PO BID Metformin (Metformin HCl) 500 Mg Tab 500 Mg PO BID With meals Tylenol (Acetaminophen) 325 Mg Tab 650 Mg PO Q4H PRN Lomotil (Diphenoxylate-Atropine) 2.5-0.025 Mg Tab 1 Tab PO DAILY PRN Novolog Inj (Insulin Aspart) 1,000 Unit/10 Ml Vial 0 SQ ACHS Sliding Scale as directed: if <70 call MD, 151-200=2 units, 201-250=4 units, 251-300=6 units, 301-350=8 units, 351-400=10 units, >400=12 units and call Probiotic (Lactobacillus Acidophilus) 1 Cap Cap 1 Cap PO BID Namenda Xr (Memantine) 14 Mg Caper 14 Mg PO DAILY Zofran (Ondansetron HCl) 4 Mg Tab 4 Mg PO Q6HR PRN Sm Acid Medical Sales Consultant (Ranitidine HCl) 75 Mg Tab 75 Mg PO BID Review of Systems ROS Limitations: Poor Historian Physical Exam Narrative GENERAL: Awake, alert, nonverbal, SKIN: Warm and dry. Ecchymosis to bilateral upper and lower extremities. HEAD: Atraumatic. Normocephalic. EYES: Pupils equal and round. No scleral icterus. No injection or drainage. ENT: Mucous membranes pink and moist. NECK: Trachea midline. No JVD. No nuchal rigidity. CARDIOVASCULAR: Regular rate and rhythm. RESPIRATORY: No accessory muscle use. Clear to auscultation. Breath sounds equal bilaterally. GASTROINTESTINAL: Abdomen soft, non-tender, nondistended. MUSCULOSKELETAL: No obvious deformities. No clubbing. No cyanosis. No edema. NEUROLOGICAL: Awake and alert. No obvious cranial nerve deficits. Motor grossly within normal limits. Moves all extremities. Data Data Last Documented VS Vital Signs Date Time Temp Pulse Resp B/P Pulse Ox O2 Delivery O2 Flow Rate FiO2 04/19/16 02:20 100/49 04/19/16 02:03 93 Room Air 04/19/16 02:03 59 18 04/19/16 00:44 97.9 Orders Electrocardiogram (04/19/16 00:45) Complete Blood Count With Diff (04/19/16 00:45) Comprehensive Metabolic Panel (04/19/16 00:45) Prothrombin Time / Inr (Pt) (04/19/16 00:45) Act Partial Throm Time (Ptt) (04/19/16 00:45) Lactic Acid Sepsis Protocol (04/19/16 00:45) Urinalysis - C+S If Indicated (04/19/16 00:45) Influenzae A/B Antigen (04/19/16 00:45) Blood Culture (04/19/16 00:45) Chest, Single Ap (04/19/16 00:45) Blood Glucose (04/19/16 00:45) Ecg Monitoring (04/19/16 00:45) Iv Access Insert/Monitor (04/19/16 00:45) Oximetry (04/19/16 00:45) Oxygen Administration (04/19/16 00:45) Sodium Chlor 0.9% 1000 Ml Inj (Ns 1000 M (04/19/16 00:45) Sodium Chlor 0.9% 1000 Ml Inj (Ns 1000 M (04/19/16 00:45) Arterial Blood Gas (Abg) (04/19/16 ) Beta Hydroxybutyrate (Acetone) (04/19/16 00:45) Ct Brain W/O Iv Contrast(Rout) (04/19/16 ) Cortisol (04/19/16 01:01) Thyroid Stimulating Hormone (04/19/16 00:45) Ckmb (Isoenzyme) Profile (04/19/16 01:00) Troponin I (04/19/16 01:00) Pantoprazole Inj (Protonix Inj) (04/19/16 02:15) Pantoprazole Inj (Protonix Inj) (04/19/16 02:15) Red Blood Cells (Rbc) (04/19/16 02:15) Blood Product Administration .UPON TRANSFUSION (04/19/16 02:15) Sodium Chlor 0.9% 250 Ml Inj (Ns 250 Ml (04/19/16 02:15) Type And Screen (04/19/16 02:15) Admit Order (Ed Use Only) (04/19/16 02:24) Labs Laboratory Tests Test 04/19/16 04/19/16 04/19/16 01:00 01:29 02:20 White Blood Count 7.0 TH/MM3 Red Blood Count 2.40 MIL/MM3 Hemoglobin 7.1 GM/DL Hematocrit 22.8 % Mean Corpuscular Volume 95.1 FL Mean Corpuscular Hemoglobin 29.8 PG Mean Corpuscular Hemoglobin 31.3 % Concent Red Cell Distribution Width 22.7 % Platelet Count 246 TH/MM3 Mean Platelet Volume 8.0 FL Neutrophils (%) (Auto) 65.9 % Lymphocytes (%) (Auto) 21.8 % Monocytes (%) (Auto) 10.7 % Eosinophils (%) (Auto) 0.9 % Basophils (%) (Auto) 0.7 % Neutrophils # (Auto) 4.6 TH/MM3 Lymphocytes # (Auto) 1.5 TH/MM3 Monocytes # (Auto) 0.7 TH/MM3 Eosinophils # (Auto) 0.1 TH/MM3 Basophils # (Auto) 0.0 TH/MM3 CBC Comment DIFF FINAL Differential Comment Prothrombin Time 10.7 SEC Prothromb Time International 1.0 RATIO Ratio Activated Partial 21.1 SEC Thromboplast Time Urine Color YELLOW Urine Turbidity CLEAR Urine pH 6.0 Urine Specific [place] 1.015 Urine Protein NEG mg/dL Urine Glucose (UA) 1000 mg/dL Urine Ketones NEG mg/dL Urine Occult Blood NEG Urine Nitrite NEG Urine Bilirubin NEG Urine Urobilinogen LESS THAN 2.0 MG/DL Urine Leukocyte Esterase NEG Urine RBC LESS THAN 1 /hpf Urine WBC LESS THAN 1 /hpf Urine Squamous Epithelial <1 /hpf Cells Urine Hyaline Casts 5 /lpf Urine Mucus FEW /lpf Microscopic Urinalysis Comment CATH-CULT NOT IND Sodium Level 141 MEQ/L Potassium Level 5.1 MEQ/L Chloride Level 106 MEQ/L Carbon Dioxide Level 22.9 MEQ/L Anion Gap 12 MEQ/L Blood Urea Nitrogen 24 MG/DL Creatinine 1.42 MG/DL Estimat Glomerular Filtration 35 ML/MIN Rate Random Glucose 368 MG/DL Lactic Acid Level 4.5 mmol/L Calcium Level 8.0 MG/DL Total Bilirubin 0.2 MG/DL Aspartate Amino Transf 13 U/L (AST/SGOT) Alanine Aminotransferase 23 U/L (ALT/SGPT) Alkaline Phosphatase 77 U/L Total Creatine Kinase 87 U/L Troponin I 0.05 NG/ML Total Protein 5.0 GM/DL Albumin 2.4 GM/DL Thyroid Stimulating Hormone 5.940 uIU/ML 3rd Gen B-Hydroxybutyrate 0.15 MMOL/L Blood Gas Puncture Site RT RADIAL Blood Gas Patient Temperature 98.6 Blood Gas HCO3 20 mmol/L Blood Gas Base Excess -4.8 mmol/L Blood Gas Oxygen Saturation 59 % Arterial Blood pH 7.31 Arterial Blood Partial 42 mmHg Pressure CO2 Arterial Blood Partial 35 mmHG Pressure O2 Arterial Blood Oxygen Content 5.4 Vol % Arterial Blood 2.3 % Carboxyhemoglobin Arterial Blood Methemoglobin 2.1 % Blood Gas Hemoglobin 6.4 G/DL Blood Type A POSITIVE [facility] Medical Decision Making Medical Screen Exam Complete: Yes Emergency Medical Condition: Yes Medical Record Reviewed: Yes Differential Diagnosis Sepsis, UTI, intracranial abnormality, metabolic abnormality, DKA, dehydration, pneumonia Narrative Course Initial vital signs show heart rate 78, blood pressure 86/41, pulse ox 93% on room air, rectal temp of 97.9F. CBC shows WBC 7.0, hemoglobin 7.1, hematocrit 22.8, platelets 246. CMP is remarkable for BUN 24, creatinine 1.42, GFR 5, random glucose 368, bicarbonate 22.9. Lactic acid is 4.5. TSH is 5.9. Beta hydroxybutyrate is 0.15. UA is not suggestive of UTI. Chest x-ray shows minimal basilar scarring or subsegmental atelectasis. Improved bilateral airspace disease compared with Apr 05 CT brain: CONCLUSION: 1. Stable exam since 2016. Remote left occipital infarct. Chronic white matter changes and cortical volume loss. Stool is heme positive and black. Patient was given 2 L of IV fluids without significant improvement in blood pressure. Her heart rate remains in the 60s. She will be given 2 units of PRBCs. Protonix drip and Protonix bolus ordered. Case discussed with cork sorter Dr. Zaldivar who will admit the patient to his service. Critical Care Narrative Aggregate critical care time was 35 minutes. Time to perform other separately billable procedures was not included in the critical care time. My time did not include minutes spent treating any other patients simultaneously or on activities that did not directly contribute to the patient's treatment. The services I provided to this patient were to treat and/or prevent clinically significant deterioration that could result in: , permanent disability, worsening clinical condition I provided critical care services requiring my management, as noted below: Chart data review, documentation time, medication orders and management, vital sign assessments/reviewing monitor data, ordering and reviewing lab tests, ordering and interpreting/reviewing x-rays and diagnostic studies, care of the patient and discussion of the patient with the admitting physicians. HemaPrompt Point of Care Internal Pos. & Neg. Controls: Passed Fecal Specimen Occult Blood: Positive Comment Heme positive black stool Diagnosis Primary Impression: Anemia Qualified Code: D64.9 - Anemia, unspecified type Additional Impressions: GI bleed Qualified Code: K92.1 - Gastrointestinal hemorrhage with melena Lactic acidosis Hypotension Qualified Code: I95.9 - Hypotension, unspecified hypotension type Admitting Information Admitting Physician Requests: Surjit Vazquez MD Apr 19, 2016 01:14
[2016-04-19 01:23] LABS: AUTOMATED NEUTROPHIL # 4.6 TH/MM3 (1.8-7.7); BASOPHIL % 0.7 % (0.0-2.0); EOSINOPHIL # 0.1 TH/MM3 (0-0.4); EOSINOPHIL % 0.9 % (0.0-4.0); HEMATOCRIT 22.8 % (35.0-46.0); HEMO FLAGS DIFF FINAL; LYMPH % 21.8 % (9.0-44.0); LYMPHOCYTE # 1.5 TH/MM3 (1.0-4.8); MEAN CELL VOLUME 95.1 FL (80.0-100.0); MEAN CORPUSCULAR HEMOGLOBIN 29.8 PG (27.0-34.0); MEAN CORPUSCULAR HGB CONC 31.3 % (32.0-36.0); MONO % 10.7 % (0.0-8.0); NEUT % 65.9 % (16.0-70.0); PLATELET COUNT 246 TH/MM3 (150-450); RED CELL DISTRIBUTION WIDTH 22.7 % (11.6-17.2)
[2016-04-19 01:34] LABS: BLOOD GAS BASE EXCESS -4.8 mmol/L (-2-2); BLOOD GAS CARBOXYHEMOGLOBIN 2.3 % (0-4); BLOOD GAS HCO3 20 mmol/L (22-26); BLOOD GAS METHEMOGLOBIN 2.1 % (0-2); BLOOD GAS O2 HGB SATURATION 59 % (90-100); BLOOD GAS OXYGEN CONTENT 5.4 Vol % (12.0-20.0); BLOOD GAS PCO2 42 mmHg (38-42); BLOOD GAS PO2 35 mmHG (61-120); BLOOD GAS TOTAL HGB 6.4 G/DL (12.0-16.0); CRITICAL VALUE YES; NUMBER OF ARTERIAL PUNCTURES 1; STAT YES; TEMP CORR TO 98.6; ULNAR PULSE Y
[2016-04-19 01:35] LABS: DRAW SITE RT RADIAL
[2016-04-19 01:36] LABS: BLOOD, URINE NEG (NEG); GLUCOSE,URINE 1000 mg/dL (NEG); HYALINE CAST, URINE 5 /lpf (RARE); KETONE, URINE NEG (NEG); MUCUS URINE FEW /lpf (OCC); NITRITE,URINE NEG (NEG); SQUAMOUS EPITHELIAL CELL URINE <1 /hpf (0-5); URINE COLOR YELLOW (YELLW/STRAW)
[2016-04-19 01:37] LABS: COMMENT (UR) CATH-CULT NOT IND; CULTURE IF INDICATED CATH CULTURE NOT IND
[2016-04-19 01:39] LABS: APTT (PATIENT) 21.1 SEC (24.3-30.1); PROTHROMBIN TIME - PATIENT 10.7 SEC (9.8-11.6)
[2016-04-19 01:46] LABS: ALT (GPT) 23 U/L (10-53); ANION GAP 12 MEQ/L (5-15); AST (GOT) 13 U/L (15-37); BICARBONATE 22.9 MEQ/L (21.0-32.0); BLOOD UREA NITROGEN 24 MG/DL (7-18); CHLORIDE 106 MEQ/L (98-107); GLOMERULAR FILTRATION RATE 35 ML/MIN (>89); POTASSIUM 5.1 MEQ/L (3.5-5.1); SODIUM (NA) 141 MEQ/L (136-145)
--- NOTE | 2016-04-19 01:48 | RADRPT ---
EXAM DATE/TIME: 04/19/2016 01:03 [facility] COMPARISON: CHEST SINGLE AP, April 05, 2016, 5:52. INDICATIONS : Short of breath. MEDICAL HISTORY : Stroke. Diabetes mellitus type II. Cerebrovascular disease. SURGICAL HISTORY : None. ENCOUNTER: Initial ACUITY: 1 day PAIN SCORE: Non-responsive. LOCATION: Bilateral chest FINDINGS: There is minimal basilar lung scarring or subsegmental air space disease. Overall findings are improv ed from April 05. Calcified granuloma right upper lobe. No significant effusion. No pneumothorax. Tortuous aorta. CONCLUSION: 1. Minimal basilar scarring or subsegmental atelectasis. Improved bilateral airspace disease compared with April 05. Pablo Napier MD on April 19, 2016 at 1:43 Board Certified Radiologist. This report was verified electronically.
[2016-04-19 01:56] LABS: ALKALINE PHOSPHATASE 77 U/L (45-117); BETA-HYDROXYBUTYRATE 0.15 MMOL/L (0.00-0.39); TOTAL BILIRUBIN ADULT 0.2 MG/DL (0.2-1.0)
[2016-04-19 02:10] LABS: CREATINE KINASE 87 U/L (26-192)
[2016-04-19] MEDS ORDERED: PANTOPRAZOLE INJ 80 MG in SODIUM CHLORIDE 0.9% INJ 35 ML IV ONE (02:15)
[2016-04-19] MEDS ORDERED: SODIUM CHLOR 0.9% 250 ML INJ 250 ML IV ONE (02:15)
[2016-04-19] MEDS ORDERED: Vancomycin Consult Pharmacy 1 EA XX SCH (02:30)
[2016-04-19] MEDS ORDERED: PIPERACIL-TAZO 4.5 GM PREMIX 100 ML IV SCH (02:30)
[2016-04-19] MEDS ORDERED: MISCELLANEOUS NURSING INFORMATION XX SCH (02:30)
[2016-04-19] MEDS ORDERED: ACETAMINOPHEN 325 MG TAB PO PRN (02:30)
[2016-04-19] MEDS ORDERED: RESP: ALBUTEROL 2.5 MG/IPRATROPIUM 0.5 MG NEB (PRN) INH (02:30)
[2016-04-19] MEDS ORDERED: SODIUM CHLORIDE 0.9% FLUSH 5 ML FLUSH IV FLUSH PRN ×2 (02:30)
[2016-04-19] MEDS ORDERED: METOCLOPRAMIDE HCL 10 MG/2 ML VIAL IV PRN (02:30)
[2016-04-19] MEDS ORDERED: ZOLPIDEM TARTRATE 5 MG TAB PO PRN (02:30)
[2016-04-19] MEDS ORDERED: CHLORHEXIDINE GLUCONATE 2 % 1 PACK (2 CLOTHS) TOP PRN (02:30)
[2016-04-19] MEDS ORDERED: MORPHINE SULFATE 4 MG/ML INJ IV PRN (02:30)
[2016-04-19] MEDS ORDERED: LORazepam 2 MG/ML VIAL IV PRN (02:30)
[2016-04-19] MEDS ORDERED: ONDANSETRON HCL 4 MG/2 ML VIAL IV PRN (02:30)
--- NOTE | 2016-04-19 02:39 | RADRPT ---
EXAM DATE/TIME: 04/19/2016 01:45 [facility] COMPARISON: No previous studies available for comparison. INDICATIONS : Altered mental status. RADIATION DOSE: ?41.74 CTDIvol (mGy) MEDICAL HISTORY : Dementia. Cerebrovascular disease. Hypertension.Diabetes SURGICAL HISTORY : None. ENCOUNTER: Initial ACUITY: 1 day PAIN SCALE: Non-responsive LOCATION: cranial TECHNIQUE: Multiple contiguous axial images were obtained of the head. Using automated exposure control and adj ustment of the mA and/or kV according to patient size, radiation dose was kept as low as reasonably a chievable to obtain optimal diagnostic quality images. FINDINGS: Comparison December 2015. Again seen is a remote left occipital lobe infarct. Chronic white matter is chemic changes present cortical volume loss. No new mass, hemorrhage or shift. No hydrocephalus. CONCLUSION: 1. Stable exam since 2015. Remote left occipital infarct. Chronic white matter changes and cortical v olume loss. Pablo Napier MD on April 19, 2016 at 2:34 Board Certified Radiologist. This report was verified electronically.
[2016-04-19] MEDS: PANTOPRAZOLE INJ 80 MG in SODIUM CHLORIDE 0.9% INJ 100 ML IV SCH ×3 (02:56→18:13)
[2016-04-19] MEDS ORDERED: PANTOPRAZOLE SODIUM 40 MG VIAL IV PUSH SCH (03:00)
[2016-04-19] MEDS ORDERED: DEXTROSE 50% IN WATER 50 ML VIAL(D50) IV PUSH PRN (03:00)
[2016-04-19] MEDS ORDERED: GLUCAGON 1 MG/ML VIAL OTHER PRN (03:00)
[2016-04-19] MEDS ORDERED: VANCOMYCIN INJ 1,000 MG in SODIUM CHLOR 0.9% 250 ML INJ 250 ML IV ONE (03:00)
--- NOTE | 2016-04-19 03:04 | HHI.HP ---
HPI Service Critical Care Medicine Primary Care Physician Unknown Admission Diagnosis anemia, GI bleed, melena, hypotension, AMS Diagnosis: Travel History International Travel<30 Days: No Contact w/Intl Traveler <30 Da: No Traveled to Known Affected Are: No History of Present Illness 89-year-old female with history of dementia, diabetes, brought in by ambulance from half-way for evaluation of low blood pressure, elevated glucose, and agitation. The patient is nonverbal and does not provide any history. According to EMS her blood glucose is in the 300s and her blood pressure 70s over 40s. Review of Systems ROS Unable to obtain patient is nonverbal Past Family Social History Allergies: Coded Allergies: No Known Allergies (Verified , 04/19/16) Past Medical History Dementia Confusion Agitation Depression CVA Type 2 diabetes mellitus Hypertension Hypothyroidism Past Surgical History Right great toe amputation Reported Medications Reported Meds & Active Scripts Active Cardizem CD 24 HR (Diltiazem CD 24 HR) 240 Mg Caper 240 Mg PO DAILY Start from April 08 morning Prednisone 20 Mg Tab 20 Mg PO BID Diltiazem (Diltiazem HCl) 90 Mg Tab 90 Mg PO TID Zanaflex (Tizanidine HCl) 4 Mg Tab 4 Mg PO HS Lisinopril 10 Mg Tab 10 Mg PO DAILY Synthroid (Levothyroxine Sodium) 200 Mcg Tab 200 Mcg PO DAILY@0600 Levemir Inj (Insulin Detemir) 1,000 unit/ 10 ML Vial 18 Units SQ DAILY Proctofoam Hc Rectal (Hydrocortisone/Pramoxine) 1-1% Foam 1 Applic RECTAL Q12HR Glipizide 10 Mg Tab 10 Mg PO DAILYAC Aricept (Donepezil) 5 Mg Tab 5 Mg PO HS Plavix (Clopidogrel Bisulfate) 75 Mg Tab 75 Mg PO DAILY Celexa (Citalopram Hydrobromide) 20 Mg Tab 20 Mg PO DAILY Cholestyramine 4 Gm/Pkt Powd 4 Gm PO DAILY@1200 Reported Trazodone (Trazodone HCl) 50 Mg Tab 50 Mg PO HS PRN Imodium A-D (Loperamide HCl) 2 Mg Cap 2 Mg PO Q3HR PRN Give 2x2mg at onset of diarrhea and then 1 with each loose stool (max 8 caps/24hrs. Notify MD if any blood in stool or diarrhea persists more than 4 days Gabapentin 300 Mg Cap 300 Mg PO TID Ferrousul (Ferrous Sulfate) 325 Mg Tab 325 Mg PO TID Nuedexta 20-10 mg (Dextromethorphan HBr-Quinidine) 1 Cap Cap 1 Cap PO BID Metformin (Metformin HCl) 500 Mg Tab 500 Mg PO BID With meals Tylenol (Acetaminophen) 325 Mg Tab 650 Mg PO Q4H PRN Lomotil (Diphenoxylate-Atropine) 2.5-0.025 Mg Tab 1 Tab PO DAILY PRN Novolog Inj (Insulin Aspart) 1,000 Unit/10 Ml Vial 0 SQ ACHS Sliding Scale as directed: if <70 call MD, 151-200=2 units, 201-250=4 units, 251-300=6 units, 301-350=8 units, 351-400=10 units, >400=12 units and call Probiotic (Lactobacillus Acidophilus) 1 Cap Cap 1 Cap PO BID Namenda Xr (Memantine) 14 Mg Caper 14 Mg PO DAILY Zofran (Ondansetron HCl) 4 Mg Tab 4 Mg PO Q6HR PRN Sm Acid Vessel [place] (Ranitidine HCl) 75 Mg Tab 75 Mg PO BID Active Ordered Medications Current Medications Medications (Trade) Dose Ordered Sig/Dave Route PRN Reason Start Time Stop Time Status Last Admin Dose Admin Pantoprazole Sodium 80 mg/ Sodium Chloride 100 ml @ 10 mls/hr Q10H IV 04/19/16 02:15 Sodium Chloride 250 ml @ 15 mls/hr ONCE ONCE IV 04/19/16 02:15 04/19/16 18:54 Sodium Chloride (NS 1000 ml Inj) 1,000 ml @ 150 mls/hr Q6H40M IV 04/19/16 02:27 UNV IV Flush (NS Flush) 2 ml UNSCH PRN IV FLUSH FLUSH AFTER USING IV ACCESS 04/19/16 02:30 UNV IV Flush (NS Flush) 2 ml BID IV FLUSH 04/19/16 09:00 UNV Acetaminophen (Tylenol) 650 mg Q6H PRN PO PAIN 1-10 AND/OR FEVER >101F 04/19/16 02:30 UNV Morphine Sulfate (Morphine Inj) 2 mg Q2H PRN IV PAIN SCALE 6 TO 10 04/19/16 02:30 UNV Famotidine (Pepcid Inj) 20 mg Q12HR IV PUSH 04/19/16 09:00 UNV Lorazepam (Ativan Inj) 2 mg Q4H PRN IV Agitation/Sedation 04/19/16 02:30 UNV Ondansetron HCl (Zofran Inj) 4 mg Q6H PRN IV NAUSEA OR VOMITING 04/19/16 02:30 UNV Metoclopramide HCl (Reglan Inj) 10 mg Q6H PRN IV NAUSEA OR VOMITING 04/19/16 02:30 UNV Docusate Sodium (Colace) 100 mg BID PO 04/19/16 09:00 UNV Zolpidem Tartrate (Ambien) 5 mg HS PRN PO INSOMNIA 04/19/16 02:30 UNV Heparin Sodium (Porcine) (Heparin Inj) 5,000 units Q8H SQ 04/19/16 02:30 UNV Miscellaneous Information 1 Q361D XX 04/19/16 02:30 UNV Chlorhexidine Gluconate (Chlorhexidine 2% Cloth) 3 pack Taper DAILY@04 TOP 04/19/16 04:00 04/15/17 03:59 UNV Chlorhexidine Gluconate (Chlorhexidine 2% Cloth) 3 pack UNSCH PRN TOP HYGIENIC CARE 04/19/16 02:30 UNV IV Flush (NS Flush) 2 ml UNSCH PRN IV FLUSH FLUSH AFTER USING IV ACCESS 04/19/16 02:30 UNV IV Flush 2 ml 2 ml BID IV FLUSH 04/19/16 09:00 UNV Vancomycin HCl 1000 mg/Sodium Chloride 250 ml @ 250 mls/hr Q12H IV 04/19/16 02:30 UNV Pharmacy Profile Note 0 ml @ 0 mls/hr UNSCH XX 04/19/16 02:30 UNV Piperacillin Sod/ Tazobactam Sod (Zosyn 4.5 Gm Premix) 100 ml @ 200 mls/hr Q6H IV 04/19/16 02:30 UNV Family History Noncontributory Social History Negative 3 Physical Exam Vital Signs Vital Signs Date Time Temp Pulse Resp B/P Pulse Ox O2 Delivery O2 Flow Rate FiO2 04/19/16 02:20 100/49 04/19/16 02:03 93 Room Air 04/19/16 02:03 93 Room Air 04/19/16 02:03 59 18 87/42 93 Room Air 04/19/16 00:44 97.9 78 18 86/41 99 Physical Exam GENERAL: Elderly woman in no acute distress SKIN: Warm and dry. HEAD: Normocephalic. EYES: No scleral icterus. No injection or drainage. NECK: Supple, trachea midline. No JVD or lymphadenopathy. CARDIOVASCULAR: Regular rate and rhythm without murmurs, gallops, or rubs. RESPIRATORY: Breath sounds equal bilaterally. No accessory muscle use. GASTROINTESTINAL: Abdomen soft, non-tender, nondistended. MUSCULOSKELETAL: No cyanosis, or edema. BACK: Nontender without obvious deformity. No CVA tenderness. Laboratory Laboratory Tests Test 04/19/16 04/19/16 04/19/16 01:00 01:29 02:20 White Blood Count 7.0 Red Blood Count 2.40 Hemoglobin 7.1 Hematocrit 22.8 Mean Corpuscular Volume 95.1 Mean Corpuscular Hemoglobin 29.8 Mean Corpuscular Hemoglobin 31.3 Concent Red Cell Distribution Width 22.7 Platelet Count 246 Mean Platelet Volume 8.0 Neutrophils (%) (Auto) 65.9 Lymphocytes (%) (Auto) 21.8 Monocytes (%) (Auto) 10.7 Eosinophils (%) (Auto) 0.9 Basophils (%) (Auto) 0.7 Neutrophils # (Auto) 4.6 Lymphocytes # (Auto) 1.5 Monocytes # (Auto) 0.7 Eosinophils # (Auto) 0.1 Basophils # (Auto) 0.0 CBC Comment DIFF FINAL Differential Comment Prothrombin Time 10.7 Prothromb Time International 1.0 Ratio Activated Partial 21.1 Thromboplast Time Urine Color YELLOW Urine Turbidity CLEAR Urine pH 6.0 Urine Specific [place] 1.015 Urine Protein NEG Urine Glucose (UA) 1000 Urine Ketones NEG Urine Occult Blood NEG Urine Nitrite NEG Urine Bilirubin NEG Urine Urobilinogen LESS THAN 2.0 Urine Leukocyte Esterase NEG Urine RBC LESS THAN 1 Urine WBC LESS THAN 1 Urine Squamous Epithelial <1 Cells Urine Hyaline Casts 5 Urine Mucus FEW Microscopic Urinalysis Comment CATH-CULT NOT IND Sodium Level 141 Potassium Level 5.1 Chloride Level 106 Carbon Dioxide Level 22.9 Anion Gap 12 Blood Urea Nitrogen 24 Creatinine 1.42 Estimat Glomerular Filtration 35 Rate Random Glucose 368 Lactic Acid Level 4.5 Calcium Level 8.0 Total Bilirubin 0.2 Aspartate Amino Transf 13 (AST/SGOT) Alanine Aminotransferase 23 (ALT/SGPT) Alkaline Phosphatase 77 Total Creatine Kinase 87 Troponin I 0.05 Total Protein 5.0 Albumin 2.4 Thyroid Stimulating Hormone 5.940 3rd Gen B-Hydroxybutyrate 0.15 Blood Gas Puncture Site RT RADIAL Blood Gas Patient Temperature 98.6 Blood Gas HCO3 20 Blood Gas Base Excess -4.8 Blood Gas Oxygen Saturation 59 Arterial Blood pH 7.31 Arterial Blood Partial 42 Pressure CO2 Arterial Blood Partial 35 Pressure O2 Arterial Blood Oxygen Content 5.4 Arterial Blood 2.3 Carboxyhemoglobin Arterial Blood Methemoglobin 2.1 Blood Gas Hemoglobin 6.4 Blood Type A POSITIVE Date/Time Procedure Status Source Growth 04/19/16 01:00 Aerobic Blood Culture Received Blood Peripheral Pending 04/19/16 01:00 Anaerobic Blood Culture Received Blood Peripheral Pending Result Diagram: 04/19/169904/19/1699 Imaging Last 24 hours Impressions Chest X-Ray 04/19/16 0045 Signed Impressions: Service Date/Time: Tuesday, April 19, 2016 01:03 - CONCLUSION: 1. Minimal basilar scarring or subsegmental atelectasis. Improved bilateral airspace disease compared with April 05. Pablo Napier MD Head CT 04/19/16 0000 Signed Impressions: Service Date/Time: Tuesday, April 19, 2016 01:45 - CONCLUSION: 1. Stable exam since 2016. Remote left occipital infarct. Chronic white matter changes and cortical volume loss. Pablo Napier MD Assessment and Plan Problem List: (1) Lactic acidosis ICD Code: E87.2 Status: Acute (2) Hypotension ICD Code: I95.9 Status: Acute (3) Anemia ICD Code: D64.9 Status: Acute (4) Altered mental status ICD Code: R41.82 Status: Acute (5) Dementia ICD Code: F03.90 Status: Chronic Assessment and Plan Sepsis - Unclear source - Cultures - Broad-spectrum antibiotics - De-escalate following results Hypotension - IV fluids resuscitation - Foot if needed to keep map above 65 Anemia - Recent history of questionable GI bleed - IV Protonix twice a day - Transfuse 2 units of PRBC Dementia - Supportive care Diabetes - Insulin sliding scale Hypothyroidism - Synthroid DVT GI prophylaxis - Protonix - Teds SCDs - No chemical DVT prophylaxis due to possible GI bleed Critical Care: The total critical care time was 35 minutes. Time to perform other separately billable procedures was not included in the critical care time. Problem Qualifiers (1) Hypotension: Qualified Code: I95.9 - Hypotension, unspecified hypotension type (2) Anemia: Qualified Code: D64.9 - Anemia, unspecified type Eddie Zaldivar MD Apr 19, 2016 03:04
[2016-04-19] MEDS: SODIUM CHLOR 0.9% 1000 ML INJ 1,000 ML IV SCH ×4 (03:05→22:24)
[2016-04-19 03:13] LABS: LACTIC ACID GHOST NOT REPORTABLE
[2016-04-19] MEDS: CHLORHEXIDINE GLUCONATE 2 % 1 PACK (2 CLOTHS) TOP SCH (04:00)
[2016-04-19] MEDS: PIPERACIL-TAZO 2.25 GM PREMIX 50 ML IV SCH ×4 (04:53→22:24)
[2016-04-19 05:02] LABS: LACTIC ACID GHOST NOT REPORTABLE
[2016-04-19] MEDS ORDERED: ALPR.25 PO (05:44)
[2016-04-19] MEDS ORDERED: LEVO500T3 PO (05:48)
[2016-04-19] MEDS ORDERED: HEPARIN SODIUM - SQ 10,000 UNITS/ML VIAL SQ SCH (06:00)
[2016-04-19] MEDS: INSULIN NovoLIN REGULAR SUPPLEMENTAL SCALE SQ SCH ×4 (07:00→21:00)
[2016-04-19] MEDS: SODIUM CHLORIDE 0.9% FLUSH 5 ML FLUSH IV FLUSH SCH ×2 (08:11→21:00)
[2016-04-19] MEDS: DOCUSATE SODIUM 100 MG CAP PO SCH ×2 (08:11→21:00)
[2016-04-19] MEDS ORDERED: FAMOTIDINE 20 MG/2 ML VIAL IV PUSH SCH (09:00)
[2016-04-19] MEDS ORDERED: SODIUM CHLORIDE 0.9% FLUSH 5 ML FLUSH IV FLUSH SCH (09:00)
[2016-04-19] MEDS ORDERED: PROPOFOL 1000 MG/100 ML INJ 100 ML ONE (10:23)
[2016-04-19 12:07] LABS: HEMATOCRIT 29.5 % (35.0-46.0); MEAN CELL VOLUME 88.7 FL (80.0-100.0); MEAN CORPUSCULAR HEMOGLOBIN 30.1 PG (27.0-34.0); MEAN CORPUSCULAR HGB CONC 33.9 % (32.0-36.0); PLATELET COUNT 198 TH/MM3 (150-450); RED BLOOD COUNT 3.33 MIL/MM3 (4.00-5.30); RED CELL DISTRIBUTION WIDTH 19.6 % (11.6-17.2); REVIEW FLAG FINAL; WHITE BLOOD COUNT 8.3 TH/MM3 (4.0-11.0)
--- NOTE | 2016-04-19 15:37 | EKG ---
Date Performed: 04/19/2016 Time Performed: 01:09:32 PTAGE: 89 years EKG: Sinus rhythm WITH FIRST DEGREE AV BLOCK LOW QRS VOLTAGE IN PRECORDIAL LEADS POSSIBLE ANTERIOR MYOCARDIAL INFARCTI ON INFERIOR MYOCARDIAL INFARCTION Loss of R wave compared to prior tracing Clinical correlation is re commended ABNORMAL ECG PREVIOUS TRACING : 04/04/2016 13.48 DOCTOR: Jimmy Mcgregor Interpretating Date/Time 04/19/2016 15:37:04
--- NOTE | 2016-04-19 17:00 | PD.CONS ---
HPI History of Present Illness This is a 89 year old female with a hx of dementia, DM, who resides in a local nursing facility and was brought to the ER for evaluation of low blood pressure , elevated glucose, and agitation. She is nonverbal and unable to provide any history and therefore the history has been obtained from the EMR and nurse. Patient was seen by our GI services 03/31/16 for rectal bleeding. POA decided to avoid endoscopic evaluations unless absolutely necessary, and no scopes were done. Abdomen/Pelvis CT (04/01/16)-----> 1. Basilar lung consolidation with small pleural effusions. Findings could represent bronchopneumonia with parapneumonic effusions. 2. Severe colonic diverticulosis, especially sigmoid. On this admission, no obvious bleeding reported, hh 7.1/22.8 s/p 2 units of blood this went up to 10.0/29.5. She is on Plavix. (Ghulam Anthony) PFSH Past Medical History According to EMR: Dementia CVA DM Depression HTN Hypothyroidism Past Surgical History According to the EMR: Right great toe amputation (Ghulam Anthony) Coded Allergies: No Known Allergies (Verified , 04/19/16) Medications Current Medications Medications (Trade) Dose Ordered Sig/Dave Route Start Time Stop Time Status Last Admin Pantoprazole Sodium 80 mg/ Sodium Chloride 100 ml @ 10 mls/hr Q10H IV 04/19/16 02:15 04/19/16 09:25 Sodium Chloride 250 ml @ 15 mls/hr ONCE ONCE IV 04/19/16 02:15 04/19/16 18:54 04/19/16 03:05 (NS 1000 ml Inj) 1,000 ml @ 150 mls/hr Q6H40M IV 04/19/16 02:27 04/19/16 14:47 (Tylenol) 650 mg Q6H PRN PO 04/19/16 02:30 (Zofran Inj) 4 mg Q6H PRN IV 04/19/16 02:30 (Reglan Inj) 10 mg Q6H PRN IV 04/19/16 02:30 (Colace) 100 mg BID PO 04/19/16 09:00 Miscellaneous Information 1 Q361D XX 04/19/16 02:30 (Chlorhexidine 2% Cloth) 3 pack Taper DAILY@04 TOP 04/19/16 04:00 04/15/17 03:59 (Chlorhexidine 2% Cloth) 3 pack UNSCH PRN TOP 04/19/16 02:30 (NS Flush) 2 ml UNSCH PRN IV FLUSH 04/19/16 02:30 IV Flush 2 ml 2 ml BID IV FLUSH 04/19/16 09:00 (Vancomycin Consult Pharmacy) 0 ml @ 0 mls/hr UNSCH XX 04/19/16 02:30 Dextrose 25 ml 25 ml UNSCH PRN IV PUSH 04/19/16 03:00 Piperacillin Sod/ Tazobactam Sod 50 ml @ 100 mls/hr Q6H IV 04/19/16 03:00 04/19/16 14:47 (Vancomycin Inj/ NS 250 ml Inj) 250 ml @ 250 mls/hr Q24H IV 04/20/16 05:00 Miscellaneous Information SPECIFIC LAB TO BE DRAWN:VANCOMYCIN TROUGH DATE TO... ONCE ONCE XX 04/22/16 04:45 04/22/16 04:46 Family History Noncontributory Social History Resides in a local nursing facility. No current tobacco/etoh. (Ghulam Anthony) Review of Systems ROS unable to obtain, patient non verbal (Ghulam Anthony) GI Exam Vitals I&O Vital Signs Date Time Temp Pulse Resp B/P Pulse Ox O2 Delivery O2 Flow Rate FiO2 04/19/16 16:00 70 04/19/16 16:00 97.9 74 24 146/68 98 04/19/16 14:00 70 04/19/16 12:00 97.9 61 26 143/66 96 04/19/16 12:00 61 04/19/16 10:00 59 04/19/16 08:00 96.0 68 22 132/60 96 04/19/16 08:00 68 04/19/16 07:00 100 Room Air 04/19/16 06:15 96.3 64 14 123/59 100 04/19/16 05:37 55 18 135/62 100 Nasal Cannula 2 04/19/16 04:53 58 18 103/51 98 Nasal Cannula 2 04/19/16 03:57 97.0 59 18 106/57 99 Nasal Cannula 2 04/19/16 03:18 108/55 04/19/16 02:55 60 16 89/45 100 Nasal Cannula 04/19/16 02:20 100/49 04/19/16 02:03 93 Room Air 04/19/16 02:03 93 Room Air 04/19/16 02:03 59 18 87/42 93 Room Air 04/19/16 00:44 97.9 78 18 86/41 99 I/O 04/18/16 04/18/16 04/18/16 04/19/16 04/19/16 04/19/16 07:00 15:00 23:00 07:00 15:00 23:00 Intake Total 3000 ml 1197 ml Output Total 350 ml 650 ml Balance 2650 ml 547 ml IV Total 2500 ml 947 ml Packed Cells 500 ml 250 ml Output Urine Total 350 ml 650 ml Imaging Last Impressions Chest X-Ray 04/19/16 0045 Signed Impressions: Service Date/Time: Tuesday, April 19, 2016 01:03 - CONCLUSION: 1. Minimal basilar scarring or subsegmental atelectasis. Improved bilateral airspace disease compared with April 05. Pablo Napier MD Head CT 04/19/16 0000 Signed Impressions: Service Date/Time: Tuesday, April 19, 2016 01:45 - CONCLUSION: 1. Stable exam since 2016. Remote left occipital infarct. Chronic white matter changes and cortical volume loss. Pablo Napier MD Laboratory Test 04/19/16 04/19/16 04/19/16 04/19/16 01:00 01:25 01:29 02:20 White Blood Count 7.0 TH/MM3 Red Blood Count 2.40 MIL/MM3 Hemoglobin 7.1 GM/DL Hematocrit 22.8 % Mean Corpuscular Volume 95.1 FL Mean Corpuscular Hemoglobin 29.8 PG Mean Corpuscular Hemoglobin 31.3 % Concent Red Cell Distribution Width 22.7 % Platelet Count 246 TH/MM3 Mean Platelet Volume 8.0 FL Neutrophils (%) (Auto) 65.9 % Lymphocytes (%) (Auto) 21.8 % Monocytes (%) (Auto) 10.7 % Eosinophils (%) (Auto) 0.9 % Basophils (%) (Auto) 0.7 % Neutrophils # (Auto) 4.6 TH/MM3 Lymphocytes # (Auto) 1.5 TH/MM3 Monocytes # (Auto) 0.7 TH/MM3 Eosinophils # (Auto) 0.1 TH/MM3 Basophils # (Auto) 0.0 TH/MM3 CBC Comment DIFF FINAL Differential Comment Prothrombin Time 10.7 SEC Prothromb Time International 1.0 RATIO Ratio Activated Partial 21.1 SEC Thromboplast Time Urine Color YELLOW Urine Turbidity CLEAR Urine pH 6.0 Urine Specific [place] 1.015 Urine Protein NEG mg/dL Urine Glucose (UA) 1000 mg/dL Urine Ketones NEG mg/dL Urine Occult Blood NEG Urine Nitrite NEG Urine Bilirubin NEG Urine Urobilinogen LESS THAN 2.0 MG/DL Urine Leukocyte Esterase NEG Urine RBC LESS THAN 1 /hpf Urine WBC LESS THAN 1 /hpf Urine Squamous Epithelial <1 /hpf Cells Urine Hyaline Casts 5 /lpf Urine Mucus FEW /lpf Microscopic Urinalysis Comment CATH-CULT NOT IND Sodium Level 141 MEQ/L Potassium Level 5.1 MEQ/L Chloride Level 106 MEQ/L Carbon Dioxide Level 22.9 MEQ/L Anion Gap 12 MEQ/L Blood Urea Nitrogen 24 MG/DL Creatinine 1.42 MG/DL Estimat Glomerular Filtration 35 ML/MIN Rate Random Glucose 368 MG/DL Lactic Acid Level 4.5 mmol/L Calcium Level 8.0 MG/DL Total Bilirubin 0.2 MG/DL Aspartate Amino Transf 13 U/L (AST/SGOT) Alanine Aminotransferase 23 U/L (ALT/SGPT) Alkaline Phosphatase 77 U/L Total Creatine Kinase 87 U/L Troponin I 0.05 NG/ML Total Protein 5.0 GM/DL Albumin 2.4 GM/DL Thyroid Stimulating Hormone 5.940 uIU/ML 3rd Gen B-Hydroxybutyrate 0.15 MMOL/L Random Cortisol 9.6 MCG/DL Blood Gas Puncture Site RT RADIAL Blood Gas Patient Temperature 98.6 Blood Gas HCO3 20 mmol/L Blood Gas Base Excess -4.8 mmol/L Blood Gas Oxygen Saturation 59 % Arterial Blood pH 7.31 Arterial Blood Partial 42 mmHg Pressure CO2 Arterial Blood Partial 35 mmHG Pressure O2 Arterial Blood Oxygen Content 5.4 Vol % Arterial Blood 2.3 % Carboxyhemoglobin Arterial Blood Methemoglobin 2.1 % Blood Gas Hemoglobin 6.4 G/DL Blood Type A POSITIVE Antibody Screen NEGATIVE Crossmatch Leukocyte-Reduced Red Blood Cells Blood Bank Comment Test 04/19/16 04/19/16 04/19/16 04/19/16 03:00 05:30 06:30 11:05 Lactic Acid Level 2.9 mmol/L 1.7 mmol/L Nasal Screen MRSA (PCR) NEGATIVE White Blood Count 8.3 TH/MM3 Red Blood Count 3.33 MIL/MM3 Hemoglobin 10.0 GM/DL Hematocrit 29.5 % Mean Corpuscular Volume 88.7 FL Mean Corpuscular Hemoglobin 30.1 PG Mean Corpuscular Hemoglobin 33.9 % Concent Red Cell Distribution Width 19.6 % Platelet Count 198 TH/MM3 Mean Platelet Volume 7.9 FL Date/Time Procedure Status Source Growth 04/19/16 06:05 Influenza Types A,B Antigen (DARON) - Final Complete Nasal Washing NEGATIVE FOR FLU A AND B ANTIGEN.... 04/19/16 01:00 Urine Culture Received Urine Catheterized Urine Pending 04/19/16 01:00 Legionella Antigen - Final Complete Urine Catheterized Urine PRESUMPTIVE NEGATIVE FOR LEGIONELLA P... 04/19/16 01:00 Streptococcus pneumoniae Antigen (M - Final Complete Urine Catheterized Urine PRESUMPTIVE NEGATIVE FOR STREPTOCOCCU... 04/19/16 01:00 Aerobic Blood Culture Received Blood Peripheral Pending 04/19/16 01:00 Anaerobic Blood Culture Received Blood Peripheral Pending Physical Examination HEENT: Pupils round and reactive to light; normocephalic; atraumatic; no jaundice. NECK: Neck is supple, no JVD, no lymphadenopathy. CHEST: Chest is clear to auscultation and percussion. CARDIAC: Regular rate and rhythm with no murmur gallop or rubs. ABDOMEN: Soft, nondistended, nontender; no hepatosplenomegaly; bowel sounds are present in all four quadrants. EXTREMITIES: No clubbing, cyanosis, or edema. SKIN: Normal; no rash; no jaundice. 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 Pt with a hx of CVA/Dementia, on Plavix, brought from a local nursing facility for low blood pressure, high sugar and agitation. She is nonverbal and unable to provide any history and therefore the history has been obtained from the EMR and nurse. Patient was seen by our GI services 03/31/16 for rectal bleeding. POA decided to avoid endoscopic evaluations unless absolutely necessary, and no scopes were done. Abdomen/Pelvis CT (04/01/16)-----> 1. Basilar lung consolidation with small pleural effusions. Findings could represent bronchopneumonia with parapneumonic effusions. 2. Severe colonic diverticulosis, especially sigmoid. On this admission, no obvious bleeding reported, hh 7.1/22.8 s/p 2 units of blood this went up to 10.0/29.5. She is on Plavix. - Dementia, CVA, DM, Depression, HTN, Hypothyroidism per primary PLAN: - Clear liquids - Recent admission for rectal bleed/anemia and POA/Family decided to hold off on endoscopic evaluation at this time - No obvious bleeding reported, will hold off on endoscopic evaluation - PPI - Consider discontinuing Plavix - Monitor HH - Transfuse as necessary - Further recommendations to follow based on results of above - Pt seen and examined by Dr. Dang and myself and this note is written on his behalf (Ghulam Anthony) Physician Comments Patient seen and examined Agree with above Continue with current supportive care Monitor labs (Kamari Dang MD) Ghulam Anthony Apr 19, 2016 17:00 Kamari Dang MD Apr 19, 2016 21:01
[2016-04-19 17:29] LABS: RETIC % 1.9 % (0.4-3.0); REVIEW FLAG FINAL
[2016-04-20] VITALS (7 sets, daily range): BP systolic 132–164; BP diastolic 60–90; PULSE 62–81; RESP 16–28; TEMP 97.5–98; O2SAT 94–100
[2016-04-20] MEDS: CHLORHEXIDINE GLUCONATE 2 % 1 PACK (2 CLOTHS) TOP SCH (03:37)
[2016-04-20] MEDS: PIPERACIL-TAZO 2.25 GM PREMIX 50 ML IV SCH ×4 (03:37→21:19)
[2016-04-20 04:41] LABS: AUTOMATED NEUTROPHIL # 6.1 TH/MM3 (1.8-7.7); BASOPHIL # 0.1 TH/MM3 (0-0.2); BASOPHIL % 0.9 % (0.0-2.0); EOSINOPHIL # 0.1 TH/MM3 (0-0.4); EOSINOPHIL % 1.3 % (0.0-4.0); HEMATOCRIT 30.9 % (35.0-46.0); HEMO FLAGS DIFF FINAL; LYMPH % 19.4 % (9.0-44.0); LYMPHOCYTE # 1.7 TH/MM3 (1.0-4.8); MEAN CELL VOLUME 89.4 FL (80.0-100.0); MEAN CORPUSCULAR HEMOGLOBIN 30.1 PG (27.0-34.0); MEAN CORPUSCULAR HGB CONC 33.7 % (32.0-36.0); MONO % 9.2 % (0.0-8.0); NEUT % 69.2 % (16.0-70.0); PLATELET COUNT 186 TH/MM3 (150-450); RED BLOOD COUNT 3.46 MIL/MM3 (4.00-5.30); RED CELL DISTRIBUTION WIDTH 19.5 % (11.6-17.2); WHITE BLOOD COUNT 8.9 TH/MM3 (4.0-11.0)
[2016-04-20] MEDS: VANCOMYCIN 1,000 MG/NS 250 ML IV SCH ×2 (05:13)
[2016-04-20 05:15] LABS: BICARBONATE 25.4 MEQ/L (21.0-32.0); CALCIUM-PROTEIN CORRECTED 8.6 MG/DL (8.5-10.1); POTASSIUM 3.9 MEQ/L (3.5-5.1); TOTAL BILIRUBIN ADULT 0.7 MG/DL (0.2-1.0)
[2016-04-20] MEDS: SODIUM CHLOR 0.9% 1000 ML INJ 1,000 ML IV SCH ×3 (05:15→16:56)
[2016-04-20] MEDS: INSULIN NovoLIN REGULAR SUPPLEMENTAL SCALE SQ SCH ×4 (07:04→21:00)
[2016-04-20] MEDS: DOCUSATE SODIUM 100 MG CAP PO SCH ×2 (09:00→19:42)
[2016-04-20] MEDS: SODIUM CHLORIDE 0.9% FLUSH 5 ML FLUSH IV FLUSH SCH ×2 (09:00→19:42)
[2016-04-20] MEDS: PANTOPRAZOLE INJ 80 MG in SODIUM CHLORIDE 0.9% INJ 100 ML IV SCH ×2 (09:03→16:55)
[2016-04-20] MEDS: POTASSIUM PHOSPHATE/SODIUM PHOSPHATE 250 MG TAB PO SCH ×3 (09:30→21:19)
--- NOTE | 2016-04-20 09:30 | HHI.PR ---
Subjective Remarks in no acute distress. noted that was on restraints. no further GI bleed per RN. afebrile. Objective Vitals Vital Signs Date Time Temp Pulse Resp B/P Pulse Ox O2 Delivery O2 Flow Rate FiO2 04/20/16 07:00 99 Room Air 04/20/16 04:00 98.0 69 16 164/75 94 04/20/16 00:00 97.9 74 24 149/65 100 04/19/16 20:00 98.3 78 24 128/61 99 04/19/16 19:00 99 Room Air 04/19/16 18:00 75 04/19/16 16:00 70 04/19/16 16:00 97.9 74 24 146/68 98 04/19/16 14:00 70 04/19/16 12:00 97.9 61 26 143/66 96 04/19/16 12:00 61 04/19/16 10:00 59 I/O 04/19/16 04/19/16 04/19/16 04/20/16 04/20/16 04/20/16 07:00 15:00 23:00 07:00 15:00 23:00 Intake Total 3000 ml 1197 ml 1277 ml 1103 ml Output Total 350 ml 650 ml 1300 ml 1000 ml Balance 2650 ml 547 ml -23 ml 103 ml IV Total 2500 ml 947 ml 1277 ml 1103 ml Packed Cells 500 ml 250 ml Output Urine Total 350 ml 650 ml 1300 ml 1000 ml Result Diagram: 04/20/16 0414 04/20/16 0414 Imaging Last Impressions Chest X-Ray 04/19/16 0045 Signed Impressions: Service Date/Time: Tuesday, April 19, 2016 01:03 - CONCLUSION: 1. Minimal basilar scarring or subsegmental atelectasis. Improved bilateral airspace disease compared with April 05. Pablo Napier MD Head CT 04/19/16 0000 Signed Impressions: Service Date/Time: Tuesday, April 19, 2016 01:45 - CONCLUSION: 1. Stable exam since 2016. Remote left occipital infarct. Chronic white matter changes and cortical volume loss. Pablo Napier MD Objective Remarks GENERAL: This is a well-nourished, well-developed patient, in no apparent distress. CARDIOVASCULAR: Regular rate and regular rhythm without murmurs, gallops, or rubs. RESPIRATORY: Clear to auscultation. Breath sounds equal bilaterally. No wheezes , rales, or rhonchi. GASTROINTESTINAL: Abdomen soft, non-tender, nondistended. Normal, active bowel sounds MUSCULOSKELETAL: Extremities without clubbing, cyanosis, or edema. NEURO: Awake and alert Procedures none Medications and IVs Current Medications Sodium Chloride 1,000 ml @ 1,000 mls/hr Q1H ONCE IV Last administered on 01:12; Start 04/19/16 at 00:45; Stop 04/19/16 at 01:44; Status DC Sodium Chloride 800 ml @ 1,000 mls/hr Q48M ONCE IV Last administered on 01:12; Start 04/19/16 at 00:45; Stop 04/19/16 at 01:32; Status DC Pantoprazole Sodium 80 mg/ Sodium Chloride 35 ml @ 420 mls/hr ONCE ONCE IV Last administered on 04/19/16 02:56; Start 04/19/16 at 02:15; Stop 04/19/16 at 02:19; Status DC Pantoprazole Sodium 80 mg/ Sodium Chloride 100 ml @ 10 mls/hr Q10H IV Last administered on 04/20/16 09:03; Start 04/19/16 at 02:15 Sodium Chloride 250 ml @ 15 mls/hr ONCE ONCE IV Last administered on 03:05; Start 04/19/16 at 02:15; Stop 04/19/16 at 18:54; Status DC Sodium Chloride (NS 1000 ml Inj) 1,000 ml @ 150 mls/hr Q6H40M IV Last administered on 04/20/16 05:15; Start 04/19/16 at 02:27 IV Flush (NS Flush) 2 ml UNSCH PRN IV FLUSH FLUSH AFTER USING IV ACCESS; Start 04/19/16 at 02:30; Stop 04/19/16 at 03:13; Status DC IV Flush (NS Flush) 2 ml BID IV FLUSH ; Start 04/19/16 at 09:00; Stop 04/19/16 at 09:00; Status DC Acetaminophen (Tylenol) 650 mg Q6H PRN PO PAIN 1-5 AND/OR FEVER >101F; Start at 02:30 Morphine Sulfate (Morphine Inj) 2 mg Q2H PRN IV PAIN SCALE 6 TO 10; Start 04/19 at 02:30; Stop 04/19/16 at 09:59; Status DC Famotidine (Pepcid Inj) 20 mg Q12HR IV PUSH ; Start 04/19/16 at 09:00; Stop at 09:00; Status DC Lorazepam (Ativan Inj) 2 mg Q4H PRN IV Agitation/Sedation; Start 04/19/16 at 02 :30; Stop 04/19/16 at 09:59; Status DC Ondansetron HCl (Zofran Inj) 4 mg Q6H PRN IV NAUSEA OR VOMITING; Start at 02:30 Metoclopramide HCl (Reglan Inj) 10 mg Q6H PRN IV NAUSEA OR VOMITING; Start at 02:30 Docusate Sodium (Colace) 100 mg BID PO ; Start 04/19/16 at 09:00 Zolpidem Tartrate (Ambien) 5 mg HS PRN PO INSOMNIA; Start 04/19/16 at 02:30; Stop 04/19/16 at 09:59; Status DC Albuterol/ Ipratropium (Duoneb Neb) 1 ampule Q2HR NEB PRN INH WHEEZING; Start 04/19/16 at 02:30 Heparin Sodium (Porcine) (Heparin Inj) 5,000 units Q8H SQ ; Start 04/19/16 at 06 :00; Stop 04/19/16 at 06:00; Status DC Miscellaneous Information 1 Q361D XX ; Start 04/19/16 at 02:30 Chlorhexidine Gluconate (Chlorhexidine 2% Cloth) 3 pack Taper DAILY@04 TOP Last administered on 04/20/16 03:37; Start 04/19/16 at 04:00; Stop 04/15/17 at 03:59 Chlorhexidine Gluconate (Chlorhexidine 2% Cloth) 3 pack UNSCH PRN TOP HYGIENIC CARE; Start 04/19/16 at 02:30 IV Flush (NS Flush) 2 ml UNSCH PRN IV FLUSH FLUSH AFTER USING IV ACCESS; Start 04/19/16 at 02:30 IV Flush 2 ml 2 ml BID IV FLUSH Last administered on 04/19/16 21:00; Start at 09:00 Vancomycin HCl 1000 mg/Sodium Chloride 250 ml @ 250 mls/hr ONCE ONCE IV Last administered on 04/19/16 04:53; Start 04/19/16 at 03:00; Stop 04/19/16 at 03:59 ; Status DC Pharmacy Profile Note 0 ml @ 0 mls/hr UNSCH XX ; Start 04/19/16 at 02:30 Piperacillin Sod/ Tazobactam Sod (Zosyn 4.5 Gm Premix) 100 ml @ 200 mls/hr Q6H IV ; Start 04/19/16 at 02:30; Status Cancel Dextrose (D50w (Vial) Inj) 25 ml UNSCH PRN IV PUSH HYPOGLYCEMIA-SEE COMMENTS; Start 04/19/16 at 03:00 Glucagon (Glucagon Inj) 1 mg UNSCH PRN OTHER HYPOGLYCEMIA-SEE COMMENTS; Start 04/19/16 at 03:00; Stop 04/19/16 at 09:59; Status DC Insulin Human Regular (NovoLIN R SUPPLEMENTAL SCALE) 1 ACHS SLIDING SCALE SQ Last administered on 04/20/16 07:04; Start 04/19/16 at 07:00 Pantoprazole Sodium 40 mg 40 mg Q12H IV PUSH ; Start 04/19/16 at 03:00; Stop at 03:12; Status DC Piperacillin Sod/ Tazobactam Sod 50 ml @ 100 mls/hr Q6H IV Last administered on 04/20/16 09:03; Start 04/19/16 at 03:00 Vancomycin HCl/ Sodium Chloride (Vancomycin Inj/ NS 250 ml Inj) 250 ml @ 250 mls/hr Q24H IV Last administered on 04/20/16 05:13; Start 04/20/16 at 05:00 Miscellaneous Information SPECIFIC LAB TO BE DRAWN:VANCOMYCIN TROUGH DATE TO... ONCE ONCE XX ; Start 04/22/16 at 04:45; Stop 04/22/16 at 04:46 Propofol (Diprivan 1000 Mg/100ml Inj) 100 ml @ As Directed STK-MED ONCE .ROUTE ; Start 04/19/16 at 10:23; Stop 04/19/16 at 10:24; Status DC A/P Assessment and Plan A/P Sepsis - Unclear source - Cultures pending- - Broad-spectrum antibiotics - De-escalate soon following results Hypotension-has resolved - IV fluids resuscitation Anemia - Recent history of questionable GI bleed - IV Protonix twice a day - Transfused 2 units of PRBC - will monitor H/H Dementia - Supportive care Diabetes - Insulin sliding scale Hypothyroidism - Synthroid DVT GI prophylaxis - Protonix - Teds SCDs - No chemical DVT prophylaxis due to possible GI bleed for transfer to floor- consulted PT/Massiel Catalan MD Apr 20, 2016 09:30
--- NOTE | 2016-04-20 16:28 | HHI.GIFU ---
Subjective Remarks Patient is resting in bed, became agitated when I started talking to her. She is in 2 points restraints, no signs of bleeding according to nurse, no nausea, no vomiting, no abdomen pain, no melena or hematochezia. (Ghulam Anthony) Objective Vitals I&O Vital Signs Date Time Temp Pulse Resp B/P Pulse Ox O2 Delivery O2 Flow Rate FiO2 04/20/16 12:00 98.0 76 28 158/70 100 04/20/16 08:00 97.6 81 20 146/90 98 04/20/16 07:00 99 Room Air 04/20/16 04:00 98.0 69 16 164/75 94 04/20/16 00:00 97.9 74 24 149/65 100 04/19/16 20:00 98.3 78 24 128/61 99 04/19/16 19:00 99 Room Air 04/19/16 18:00 75 I/O 04/19/16 04/19/16 04/19/16 04/20/16 04/20/16 04/20/16 07:00 15:00 23:00 07:00 15:00 23:00 Intake Total 3000 ml 1197 ml 1277 ml 1103 ml 1108 ml Output Total 350 ml 650 ml 1300 ml 1000 ml 1000 ml Balance 2650 ml 547 ml -23 ml 103 ml 108 ml Intake Oral 120 ml IV Total 2500 ml 947 ml 1277 ml 1103 ml 988 ml Packed Cells 500 ml 250 ml Output Urine Total 350 ml 650 ml 1300 ml 1000 ml 1000 ml # Bowel Movements 2 Laboratory Laboratory Tests Test 04/19/16 04/20/16 17:20 04:14 Reticulocyte Count 1.9 Absolute Reticulocyte Count 61.3 Haptoglobin 97 Lactate Dehydrogenase 257 White Blood Count 8.9 Red Blood Count 3.46 Hemoglobin 10.4 Hematocrit 30.9 Mean Corpuscular Volume 89.4 Mean Corpuscular Hemoglobin 30.1 Mean Corpuscular Hemoglobin 33.7 Concent Red Cell Distribution Width 19.5 Platelet Count 186 Mean Platelet Volume 7.5 Neutrophils (%) (Auto) 69.2 Lymphocytes (%) (Auto) 19.4 Monocytes (%) (Auto) 9.2 Eosinophils (%) (Auto) 1.3 Basophils (%) (Auto) 0.9 Neutrophils # (Auto) 6.1 Lymphocytes # (Auto) 1.7 Monocytes # (Auto) 0.8 Eosinophils # (Auto) 0.1 Basophils # (Auto) 0.1 CBC Comment DIFF FINAL Differential Comment Sodium Level 142 Potassium Level 3.9 Chloride Level 108 Carbon Dioxide Level 25.4 Anion Gap 9 Blood Urea Nitrogen 11 Creatinine 0.88 Estimat Glomerular Filtration 61 Rate Random Glucose 139 Calcium Level 7.4 Protein Corrected Calcium 8.6 Phosphorus Level 1.5 Magnesium Level 2.0 Total Bilirubin 0.7 Aspartate Amino Transf 14 (AST/SGOT) Alanine Aminotransferase 21 (ALT/SGPT) Alkaline Phosphatase 78 Total Protein 5.0 Albumin 2.3 Date/Time Procedure Status Source Growth 04/19/16 06:05 Influenza Types A,B Antigen (DARON) - Final Complete Nasal Washing NEGATIVE FOR FLU A AND B ANTIGEN.... 04/19/16 01:00 Urine Culture - Preliminary Resulted Urine Catheterized Urine NO GROWTH IN 24 HOURS. 04/19/16 01:00 Legionella Antigen - Final Complete Urine Catheterized Urine PRESUMPTIVE NEGATIVE FOR LEGIONELLA P... 04/19/16 01:00 Streptococcus pneumoniae Antigen (M - Final Complete Urine Catheterized Urine PRESUMPTIVE NEGATIVE FOR STREPTOCOCCU... 04/19/16 01:00 Aerobic Blood Culture - Preliminary Resulted Blood Peripheral NO GROWTH IN 1 DAY 04/19/16 01:00 Anaerobic Blood Culture - Preliminary Resulted Blood Peripheral NO GROWTH IN 1 DAY Imaging Last Impressions Chest X-Ray 04/19/16 0045 Signed Impressions: Service Date/Time: Tuesday, April 19, 2016 01:03 - CONCLUSION: 1. Minimal basilar scarring or subsegmental atelectasis. Improved bilateral airspace disease compared with April 05. Pablo Napier MD Head CT 04/19/16 0000 Signed Impressions: Service Date/Time: Tuesday, April 19, 2016 01:45 - CONCLUSION: 1. Stable exam since 2016. Remote left occipital infarct. Chronic white matter changes and cortical volume loss. Pablo Napier MD Physical Exam HEENT:normocephalic; atraumatic; no jaundice. NECK: Neck is supple, no JVD, no lymphadenopathy. CHEST: Chest is clear to auscultation and percussion. CARDIAC: Regular rate and rhythm with no murmur gallop or rubs. ABDOMEN: Soft, nondistended, nontender; no hepatosplenomegaly; bowel sounds are present in all four quadrants. EXTREMITIES: No clubbing, cyanosis, or edema. SKIN: Normal; no rash; no jaundice. TOW DRIVER: alert, non verbal (Ghulam Anthony) Assessment and Plan Plan - Acute on chronic anemia. No bleeding reported, hgb stable s/p 2 units of blood Pt with a hx of CVA/Dementia, on Plavix, brought from a local nursing facility for low blood pressure, high sugar and agitation. She is nonverbal and unable to provide any history and therefore the history has been obtained from the EMR and nurse. Patient was seen by our GI services 03/31/16 for rectal bleeding. POA decided to avoid endoscopic evaluations unless absolutely necessary, and no scopes were done. Abdomen/Pelvis CT (04/01/16)-----> 1. Basilar lung consolidation with small pleural effusions. Findings could represent bronchopneumonia with parapneumonic effusions. 2. Severe colonic diverticulosis, especially sigmoid. On this admission, no obvious bleeding reported, hh 7.1/22.8 s/p 2 units of blood this went up to 10.0/29.5. She is on Plavix. - Dementia, CVA, DM, Depression, HTN, Hypothyroidism per primary PLAN: - TARAH - If h&h continue to be stable and no signs of bleeding, is okay to DC from GI stand point - Recent admission for rectal bleed/anemia and POA/Family decided to hold off on endoscopic evaluation at this time - Cont. PPI - Consider discontinuing Plavix - Monitor HH - Transfuse as necessary - Further recommendations to follow based on results of above - Pt seen and examined by Dr. Dang and myself and this note is written on his behalf (Ghulam Anthony) Physician Comments Patient seen and examined Agree with above Continue with current supportive care Monitor labs (Kamari Dang MD) Ghulam Anthony Apr 20, 2016 16:27 Kamari Dang MD Apr 20, 2016 21:39
[2016-04-20] MEDS: ALPRAZolam 0.25 MG TAB PO PRN (18:44)
[2016-04-20] MEDS: DONEPEZIL HCL 5 MG TAB PO SCH (19:42)
[2016-04-21] VITALS (10 sets, daily range): BP systolic 123–176; BP diastolic 70–92; PULSE 63–84; RESP 16–25; TEMP 96.2–98.6; O2SAT 94–99
[2016-04-21] MEDS: ENALAPRILAT 1.25 MG/ML VIAL IV PUSH PRN (01:17)
[2016-04-21] MEDS: SODIUM CHLOR 0.9% 1000 ML INJ 1,000 ML IV SCH ×2 (02:11→17:17)
[2016-04-21] MEDS: CHLORHEXIDINE GLUCONATE 2 % 1 PACK (2 CLOTHS) TOP SCH (04:00)
[2016-04-21] MEDS: PIPERACIL-TAZO 2.25 GM PREMIX 50 ML IV SCH ×2 (04:03→09:34)
[2016-04-21] MEDS: ALPRAZolam 0.25 MG TAB PO PRN ×2 (04:04→23:14)
[2016-04-21] MEDS: POTASSIUM PHOSPHATE/SODIUM PHOSPHATE 250 MG TAB PO SCH ×3 (05:52→20:44)
[2016-04-21] MEDS: VANCOMYCIN 1,000 MG/NS 250 ML IV SCH ×2 (05:52)
[2016-04-21] MEDS: INSULIN NovoLIN REGULAR SUPPLEMENTAL SCALE SQ SCH ×4 (07:00→21:00)
[2016-04-21 07:07] LABS: HEMATOCRIT 34.1 % (35.0-46.0)
[2016-04-21] MEDS ORDERED: NAMENDA 14 MG PO SCH (09:00)
[2016-04-21] MEDS: DOCUSATE SODIUM 100 MG CAP PO SCH ×2 (09:00→20:45)
[2016-04-21] MEDS: SODIUM CHLORIDE 0.9% FLUSH 5 ML FLUSH IV FLUSH SCH ×2 (09:35→20:45)
--- NOTE | 2016-04-21 11:14 | HHI.GIFU ---
Subjective Remarks Resting in bed. Slightly agitated, confused. No active bleeding. Denies abdominal pain. (Garima Santillan) Objective Vitals I&O Vital Signs Date Time Temp Pulse Resp B/P Pulse Ox O2 Delivery O2 Flow Rate FiO2 04/21/16 10:00 78 04/21/16 08:00 84 04/21/16 08:00 98.6 78 24 151/86 98 04/21/16 06:00 63 04/21/16 04:00 72 04/21/16 04:00 96.2 72 25 165/77 99 04/21/16 02:00 74 04/21/16 00:00 63 04/21/16 00:00 98.4 63 16 176/87 99 04/20/16 22:00 62 04/20/16 20:00 73 04/20/16 20:00 97.9 73 23 159/60 99 04/20/16 19:00 93 Nasal Cannula 2.00 04/20/16 16:00 97.5 77 18 132/85 99 04/20/16 12:00 98.0 76 28 158/70 100 I/O 04/20/16 04/20/16 04/20/16 04/21/16 04/21/16 04/21/16 07:00 15:00 23:00 07:00 15:00 23:00 Intake Total 1103 ml 1108 ml 576 ml 575 ml Output Total 1000 ml 1000 ml 2300 ml 1850 ml Balance 103 ml 108 ml -1724 ml -1275 ml Intake Oral 120 ml 40 ml IV Total 1103 ml 988 ml 536 ml 575 ml Output Urine Total 1000 ml 1000 ml 2300 ml 1850 ml # Bowel Movements 2 1 1 Laboratory Laboratory Tests Test 04/21/16 04:29 Hemoglobin 11.2 Hematocrit 34.1 Date/Time Procedure Status Source Growth 04/19/16 06:05 Influenza Types A,B Antigen (DARON) - Final Complete Nasal Washing NEGATIVE FOR FLU A AND B ANTIGEN.... 04/19/16 01:00 Urine Culture - Final Complete Urine Catheterized Urine NO GROWTH IN 48 HOURS. 04/19/16 01:00 Legionella Antigen - Final Complete Urine Catheterized Urine PRESUMPTIVE NEGATIVE FOR LEGIONELLA P... 04/19/16 01:00 Streptococcus pneumoniae Antigen (M - Final Complete Urine Catheterized Urine PRESUMPTIVE NEGATIVE FOR STREPTOCOCCU... 04/19/16 01:00 Aerobic Blood Culture - Preliminary Resulted Blood Peripheral NO GROWTH IN 1 DAY 04/19/16 01:00 Anaerobic Blood Culture - Preliminary Resulted Blood Peripheral NO GROWTH IN 1 DAY Imaging Last Impressions Chest X-Ray 04/19/16 0045 Signed Impressions: Service Date/Time: Tuesday, April 19, 2016 01:03 - CONCLUSION: 1. Minimal basilar scarring or subsegmental atelectasis. Improved bilateral airspace disease compared with April 05. Pablo Napier MD Head CT 04/19/16 0000 Signed Impressions: Service Date/Time: Tuesday, April 19, 2016 01:45 - CONCLUSION: 1. Stable exam since 2016. Remote left occipital infarct. Chronic white matter changes and cortical volume loss. Pablo Napier MD Physical Exam HEENT: Normocephalic; atraumatic CHEST: Resp even/unlabored. CARDIAC: RRR ABDOMEN: Soft, nondistended, nontender; no hepatosplenomegaly; bowel sounds are present in all four quadrants. EXTREMITIES: No clubbing, cyanosis, or edema. SKIN: Normal; no rash; no jaundice. 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 Pt with a hx of CVA/Dementia, on Plavix, brought from a local nursing facility for low blood pressure, high sugar and agitation. Patient was seen by our GI services 03/31/16 for rectal bleeding. POA decided to avoid endoscopic evaluations unless absolutely necessary, and no scopes were done. Abdomen/Pelvis CT (04/01/16)-----> 1. Basilar lung consolidation with small pleural effusions. Findings could represent bronchopneumonia with parapneumonic effusions. 2. Severe colonic diverticulosis, especially sigmoid. On this admission, no obvious bleeding reported. HH stable after 2 units PRBC, 11.2/34.1. Will hold on endoscopic procedures unless obvious active bleeding and family agreeable. - Sepsis, unclear source. Hypotension improved with IVF. Nasal swab negative for Flu A/B, Urine negative for legionella, streptococcus, urine cx negative, Bcx no growth 1 day. WBC 8.9 - Dementia, CVA, DM, Depression, HTN, Hypothyroidism per primary PLAN: - TARAH - PPI - Monitor HH - Transfuse as necessary - Further recommendations to follow based on results of above - Pt seen and examined by Dr. Dang and myself and this note is written on his behalf (Garima Santillan) Physician Comments Patient seen and examined Agree with above Continue with current supportive care Monitor labs Not much to add from a GI standpoint we will sign off Please reconsult as needed (Kamari Dang MD) Garima Santillan Apr 21, 2016 11:14 Kamari Dang MD Apr 21, 2016 19:28
--- NOTE | 2016-04-21 12:27 | HHI.PR ---
Subjective Remarks still confused and at times agitated. still with some black stools. noted that is still on restraints. d/w the RN. Objective Vitals Vital Signs Date Time Temp Pulse Resp B/P Pulse Ox O2 Delivery O2 Flow Rate FiO2 04/21/16 10:00 78 04/21/16 08:00 84 04/21/16 08:00 98.6 78 24 151/86 98 04/21/16 06:00 63 04/21/16 04:00 72 04/21/16 04:00 96.2 72 25 165/77 99 04/21/16 02:00 74 04/21/16 00:00 63 04/21/16 00:00 98.4 63 16 176/87 99 04/20/16 22:00 62 04/20/16 20:00 73 04/20/16 20:00 97.9 73 23 159/60 99 04/20/16 19:00 93 Nasal Cannula 2.00 04/20/16 16:00 97.5 77 18 132/85 99 I/O 04/20/16 04/20/16 04/20/16 04/21/16 04/21/16 04/21/16 07:00 15:00 23:00 07:00 15:00 23:00 Intake Total 1103 ml 1108 ml 576 ml 575 ml Output Total 1000 ml 1000 ml 2300 ml 1850 ml Balance 103 ml 108 ml -1724 ml -1275 ml Intake Oral 120 ml 40 ml IV Total 1103 ml 988 ml 536 ml 575 ml Output Urine Total 1000 ml 1000 ml 2300 ml 1850 ml # Bowel Movements 2 1 1 Result Diagram: 04/21/16 0429 04/20/16 0414 Imaging Last Impressions Chest X-Ray 04/19/16 0045 Signed Impressions: Service Date/Time: Tuesday, April 19, 2016 01:03 - CONCLUSION: 1. Minimal basilar scarring or subsegmental atelectasis. Improved bilateral airspace disease compared with April 05. Pablo Napier MD Head CT 04/19/16 0000 Signed Impressions: Service Date/Time: Tuesday, April 19, 2016 01:45 - CONCLUSION: 1. Stable exam since 2016. Remote left occipital infarct. Chronic white matter changes and cortical volume loss. Pablo Napier MD Objective Remarks GENERAL: This is a well-nourished, well-developed patient, in no apparent distress. CARDIOVASCULAR: Regular rate and regular rhythm without murmurs, gallops, or rubs. RESPIRATORY: Clear to auscultation. Breath sounds equal bilaterally. No wheezes , rales, or rhonchi. GASTROINTESTINAL: Abdomen soft, non-tender, nondistended. Normal, active bowel sounds MUSCULOSKELETAL: Extremities without clubbing, cyanosis, or edema. NEURO: Awake but confused Procedures none Medications and IVs Current Medications Sodium Chloride 1,000 ml @ 1,000 mls/hr Q1H ONCE IV Last administered on 01:12; Start 04/19/16 at 00:45; Stop 04/19/16 at 01:44; Status DC Sodium Chloride 800 ml @ 1,000 mls/hr Q48M ONCE IV Last administered on 01:12; Start 04/19/16 at 00:45; Stop 04/19/16 at 01:32; Status DC Pantoprazole Sodium 80 mg/ Sodium Chloride 35 ml @ 420 mls/hr ONCE ONCE IV Last administered on 04/19/16 02:56; Start 04/19/16 at 02:15; Stop 04/19/16 at 02:19; Status DC Pantoprazole Sodium 80 mg/ Sodium Chloride 100 ml @ 10 mls/hr Q10H IV Last administered on 04/20/16 16:55; Start 04/19/16 at 02:15; Stop 04/21/16 at 00:04; Status DC Sodium Chloride 250 ml @ 15 mls/hr ONCE ONCE IV Last administered on 03:05; Start 04/19/16 at 02:15; Stop 04/19/16 at 18:54; Status DC Sodium Chloride (NS 1000 ml Inj) 1,000 ml @ 75 mls/hr Q67M22D IV Last administered on 04/20/16 16:56; Start 04/19/16 at 02:27 IV Flush (NS Flush) 2 ml UNSCH PRN IV FLUSH FLUSH AFTER USING IV ACCESS; Start 04/19/16 at 02:30; Stop 04/19/16 at 03:13; Status DC IV Flush (NS Flush) 2 ml BID IV FLUSH ; Start 04/19/16 at 09:00; Stop 04/19/16 at 09:00; Status DC Acetaminophen (Tylenol) 650 mg Q6H PRN PO PAIN 1-5 AND/OR FEVER >101F; Start at 02:30 Morphine Sulfate (Morphine Inj) 2 mg Q2H PRN IV PAIN SCALE 6 TO 10; Start 04/19 at 02:30; Stop 04/19/16 at 09:59; Status DC Famotidine (Pepcid Inj) 20 mg Q12HR IV PUSH ; Start 04/19/16 at 09:00; Stop at 09:00; Status DC Lorazepam (Ativan Inj) 2 mg Q4H PRN IV Agitation/Sedation; Start 04/19/16 at 02 :30; Stop 04/19/16 at 09:59; Status DC Ondansetron HCl (Zofran Inj) 4 mg Q6H PRN IV NAUSEA OR VOMITING; Start at 02:30 Metoclopramide HCl (Reglan Inj) 10 mg Q6H PRN IV NAUSEA OR VOMITING; Start at 02:30 Docusate Sodium (Colace) 100 mg BID PO Last administered on 04/20/16 19:42; Start 04/19/16 at 09:00 Zolpidem Tartrate (Ambien) 5 mg HS PRN PO INSOMNIA; Start 04/19/16 at 02:30; Stop 04/19/16 at 09:59; Status DC Albuterol/ Ipratropium (Duoneb Neb) 1 ampule Q2HR NEB PRN INH WHEEZING; Start 04/19/16 at 02:30 Heparin Sodium (Porcine) (Heparin Inj) 5,000 units Q8H SQ ; Start 04/19/16 at 06 :00; Stop 04/19/16 at 06:00; Status DC Miscellaneous Information 1 Q361D XX ; Start 04/19/16 at 02:30 Chlorhexidine Gluconate (Chlorhexidine 2% Cloth) 3 pack Taper DAILY@04 TOP Last administered on 04/21/16 04:00; Start 04/19/16 at 04:00; Stop 04/15/17 at 03:59 Chlorhexidine Gluconate (Chlorhexidine 2% Cloth) 3 pack UNSCH PRN TOP HYGIENIC CARE; Start 04/19/16 at 02:30 IV Flush (NS Flush) 2 ml UNSCH PRN IV FLUSH FLUSH AFTER USING IV ACCESS; Start 04/19/16 at 02:30 IV Flush 2 ml 2 ml BID IV FLUSH Last administered on 04/21/16 09:35; Start at 09:00 Vancomycin HCl 1000 mg/Sodium Chloride 250 ml @ 250 mls/hr ONCE ONCE IV Last administered on 04/19/16 04:53; Start 04/19/16 at 03:00; Stop 04/19/16 at 03:59 ; Status DC Pharmacy Profile Note 0 ml @ 0 mls/hr UNSCH XX ; Start 04/19/16 at 02:30 Piperacillin Sod/ Tazobactam Sod (Zosyn 4.5 Gm Premix) 100 ml @ 200 mls/hr Q6H IV ; Start 04/19/16 at 02:30; Status Cancel Dextrose (D50w (Vial) Inj) 25 ml UNSCH PRN IV PUSH HYPOGLYCEMIA-SEE COMMENTS Last administered on 04/20/16 21:19; Start 04/19/16 at 03:00 Glucagon (Glucagon Inj) 1 mg UNSCH PRN OTHER HYPOGLYCEMIA-SEE COMMENTS; Start 04/19/16 at 03:00; Stop 04/19/16 at 09:59; Status DC Insulin Human Regular (NovoLIN R SUPPLEMENTAL SCALE) 1 ACHS SLIDING SCALE SQ Last administered on 04/21/16 11:02; Start 04/19/16 at 07:00 Pantoprazole Sodium 40 mg 40 mg Q12H IV PUSH ; Start 04/19/16 at 03:00; Stop at 03:12; Status DC Piperacillin Sod/ Tazobactam Sod 50 ml @ 100 mls/hr Q6H IV Last administered on 04/21/16 09:34; Start 04/19/16 at 03:00 Vancomycin HCl/ Sodium Chloride (Vancomycin Inj/ NS 250 ml Inj) 250 ml @ 250 mls/hr Q24H IV Last administered on 04/21/16 05:52; Start 04/20/16 at 05:00 Miscellaneous Information SPECIFIC LAB TO BE DRAWN:VANCOMYCIN TROUGH DATE TO... ONCE ONCE XX ; Start 04/22/16 at 04:45; Stop 04/22/16 at 04:46 Propofol (Diprivan 1000 Mg/100ml Inj) 100 ml @ As Directed STK-MED ONCE .ROUTE ; Start 04/19/16 at 10:23; Stop 04/19/16 at 10:24; Status DC Potassium Phos/ Sodium Phos (K-Phos Neutral) 250 mg Q8HR PO Last administered on 04/21/16 05:52; Start 04/20/16 at 09:30 Enalaprilat (Vasotec Inj) 1.25 mg Q8H PRN IV PUSH SBP> 180 OR DBP > 110. Last administered on 04/21/16 01:17; Start 04/20/16 at 09:30 Donepezil HCl (Aricept) 5 mg HS PO Last administered on 04/20/16 19:42; Start 04/20/16 at 21:00 Patient Own Medication PT OWN MED: NAMENDA... DAILY PO ; Start 04/21/16 at 09:00 ; Status Hold Alprazolam (Xanax) 0.25 mg Q6H PRN PO ANXIETY Last administered on 04/21/16 04: 04; Start 04/20/16 at 17:45 A/P Assessment and Plan A/P Sepsis - Unclear source - Cultures negative - De-escalate soon antibiotics Hypotension-has resolved - IV fluids resuscitation Anemia - Recent history of questionable GI bleed - IV Protonix twice a day - Transfused 2 units of PRBC and now H/H stable. - will monitor H/H Dementia -resume home meds - Supportive care Diabetes - Insulin sliding scale Hypothyroidism - Synthroid DVT GI prophylaxis - Protonix - Teds SCDs - No chemical DVT prophylaxis due to possible GI bleed for transfer to floor- consulted PT/ST. will consult palliative care. Massiel Ferrell MD Apr 21, 2016 12:25
[2016-04-21] MEDS ORDERED: HALOPERIDOL LACTATE 5 MG/ML AMP IM PRN (12:30)
--- NOTE | 2016-04-21 14:23 | PD.CONS ---
Consult Service Palliative Care . Consult Requested By Dr. Ferrell. . Primary Care Physician Unknown . Reason for Consultation a. To assist with evaluation and management of symptoms including: confusion , agitation. b. To assist medical decision maker(s) with: better understanding of current medical conditions; weighing benefits/burdens of medical treatment options; making medical treatment decisions. . HPI History of Present Illness Ms. Dueñas is an 89-year-old female with past medical history of dementia, DM, HTN, hypothyroidism, hyperlipidemia, pain, anxiety, depression, GERD, CVA and recent GI bleed, UTI. This is her 6th acute care hospitalization since December 2015. She was most recently admitted from 04/03/16-04/07/16 with GI bleed and UTI. GI services evaluated her during this admission for rectal bleeding. POA decided to against endoscopic evaluation. CT abdomen/pelvis revealed severe colonic diverticulosis, especially sigmoid and probable bronchopneumonia. She presented to [facility] emergency room on 04/19/16 for evaluation of hypotension, hyperglycemia and agitation. Upon EMS arrival patient's blood sugar was in the 300s, her blood pressure was 70/ 40. Upon arrival to the emergency room: * Vital signs: temp 97.9, pulse 59, respiration 18, BP 100/49. * WBC 7, hemoglobin 7.1, hematocrit 22.8, platelet count 246, neutrophils 65.9% * PT 10.7, INR 1.0, PTT 21.1 * urinalysis negative * potassium 5.1, BUN 24, creatinine 1.42, GFR 35, glucose 368 * lactic acid 4.5 * total protein 5.0, albumin 2.4 * chest x-ray - minimal basilar scarring in subsegmental atelectasis, improved compared to 04/05/16 imaging. * CT brain remote left occipital infarct, chronic white matter changes, cortical volume loss, stable compared 2016. * Hemoccult positive. Patient is admitted to ICU with G.I. bleed, anemia, lactic acidosis, hypotension. Gastroenterology was consulted. Patient was given 2 units PRBCs, hemoglobin remains stable at 11.2, hematocrit 34.1. No plan for endoscopic evaluation. Patient remains in ICU, order for transfer to medical floor when bed available. Lactic acid has normalized. Cultures negative to date. She remains confused and agitated. Speech therapy evaluation recommends. Diet and nectar thickened liquids. Albumin 2.3. Patient has [place] do not resuscitate order scanned into EMR dated 02/17/16. Palliative care is consulted to assist with further clarification of treatment goals. Patient seen and examined in ICU. She is yelling out periodically help me please as staff members walk by the room. Upon entering she is verbal, some garbled speech, seems to have some expressive aphasia. She is able to tell me her name. She tells me she has 3 sons, though is not able to tell me their names and becomes very frustrated when she cannot recite their names. When asked if her sons names are Benito and Emmanuel she smiles and thanks me. She knows that she is in the hospital, she is unable to tell me where she lives because she "moved." She appears frustrated with bilateral soft wrist restraints. When I asked her if she's cold she said yes, I placed a blanket on her legs and she calmed immediately, thanked me and told me that she "hopes that she can help me someday." According to records patient has a legal guardian through the [employer] [facility] [employer], Rosalba Blanc, however when I call her cell phone number she has an extended medical leave message. Called [employer] office, left message to further clarify legal guardianship. I have also contacted [facility] to request legal guardian paperwork. Palliative care will need to determine legal decision maker prior to clarification of treatment goals. Will contact [employer] again 04/22/16 if no return call received. . Function/Cognitive Trajectory Unknown. Review of Systems ROS Limitations: Altered Mental Status (patient has some baseline confusion given underlying dementia, ROS per patient, EMR review.) Constitutional: COMPLAINS OF: Fatigue, Change in appetite (decreased), Generalized weakness Gastrointestinal: COMPLAINS OF: Abdominal pain, Black stools, Bloody stools, Difficulty Swallowing Hematologic/Lymphatics: COMPLAINS OF: Bruising, History of transfusions Neurologic: COMPLAINS OF: Poor Balance Psychiatric: COMPLAINS OF: Anxiety, Confusion, Depression, Agitation Past Family Social History Coded Allergies: No Known Allergies (Verified , 04/19/16) Past Medical History Dementia DM Depression HTN Hypothyroidism prior CVA 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 bleed . Past Surgical History Right great toe amputation cardiac catheterization . Reported Medications Reported Meds & Active Scripts Active Cardizem CD 24 HR (Diltiazem CD 24 HR) 240 Mg Caper 240 Mg PO DAILY Start from April 08 morning Prednisone 20 Mg Tab 20 Mg PO BID Diltiazem (Diltiazem HCl) 90 Mg Tab 90 Mg PO TID Zanaflex (Tizanidine HCl) 4 Mg Tab 4 Mg PO HS Lisinopril 10 Mg Tab 10 Mg PO DAILY Synthroid (Levothyroxine Sodium) 200 Mcg Tab 200 Mcg PO DAILY@0600 Levemir Inj (Insulin Detemir) 1,000 unit/ 10 ML Vial 18 Units SQ DAILY Proctofoam Hc Rectal (Hydrocortisone/Pramoxine) 1-1% Foam 1 Applic RECTAL Q12HR Glipizide 10 Mg Tab 10 Mg PO DAILYAC Aricept (Donepezil) 5 Mg Tab 5 Mg PO HS Plavix (Clopidogrel Bisulfate) 75 Mg Tab 75 Mg PO DAILY Celexa (Citalopram Hydrobromide) 20 Mg Tab 20 Mg PO DAILY Cholestyramine 4 Gm/Pkt Powd 4 Gm PO DAILY@1200 Reported Trazodone (Trazodone HCl) 50 Mg Tab 50 Mg PO HS PRN Imodium A-D (Loperamide HCl) 2 Mg Cap 2 Mg PO Q3HR PRN Give 2x2mg at onset of diarrhea and then 1 with each loose stool (max 8 caps/24hrs. Notify MD if any blood in stool or diarrhea persists more than 4 days Gabapentin 300 Mg Cap 300 Mg PO TID Ferrousul (Ferrous Sulfate) 325 Mg Tab 325 Mg PO TID Nuedexta 20-10 mg (Dextromethorphan HBr-Quinidine) 1 Cap Cap 1 Cap PO BID Metformin (Metformin HCl) 500 Mg Tab 500 Mg PO BID With meals Tylenol (Acetaminophen) 325 Mg Tab 650 Mg PO Q4H PRN Lomotil (Diphenoxylate-Atropine) 2.5-0.025 Mg Tab 1 Tab PO DAILY PRN Novolog Inj (Insulin Aspart) 1,000 Unit/10 Ml Vial 0 SQ ACHS Sliding Scale as directed: if <70 call , 151-200=2 units, 201-250=4 units, 251-300=6 units, 301-350=8 units, 351-400=10 units, >400=12 units and call Probiotic (Lactobacillus Acidophilus) 1 Cap Cap 1 Cap PO BID Namenda Xr (Memantine) 14 Mg Caper 14 Mg PO DAILY Zofran (Ondansetron HCl) 4 Mg Tab 4 Mg PO Q6HR PRN Sm Acid Aircraft Technician (Ranitidine HCl) 75 Mg Tab 75 Mg PO BID . Current Medications Medications (Trade) Dose Ordered Sig/Dave Route Start Time Stop Time Status Last Admin (NS 1000 ml Inj) 1,000 ml @ 75 mls/hr [id number] IV 04/19/16 02:27 04/20/16 16:56 (Tylenol) 650 mg Q6H PRN PO 04/19/16 02:30 (Zofran Inj) 4 mg Q6H PRN IV 04/19/16 02:30 (Reglan Inj) 10 mg Q6H PRN IV 04/19/16 02:30 (Colace) 100 mg BID PO 04/19/16 09:00 04/20/16 19:42 Miscellaneous Information 1 [id number] XX 04/19/16 02:30 (Chlorhexidine 2% Cloth) 3 pack Taper DAILY@04 TOP 04/19/16 04:00 04/15/17 03:59 04/21/16 04:00 (Chlorhexidine 2% Cloth) 3 pack UNSCH PRN TOP 04/19/16 02:30 (NS Flush) 2 ml UNSCH PRN IV FLUSH 04/19/16 02:30 (NS Flush) 2 ml BID IV FLUSH 04/19/16 09:00 04/21/16 09:35 (D50w (Vial) Inj) 25 ml UNSCH PRN IV PUSH 04/19/16 03:00 04/20/16 21:19 (K-Phos Neutral) 250 mg Q8HR PO 04/20/16 09:30 04/21/16 13:40 (Vasotec Inj) 1.25 mg Q8H PRN IV PUSH 04/20/16 09:30 04/21/16 01:17 (Aricept) 5 mg HS PO 04/20/16 21:00 04/20/16 19:42 Patient Own Medication PT OWN MED: NAMENDA... DAILY PO 04/21/16 09:00 Hold (Xanax) 0.25 mg Q6H PRN PO 04/20/16 17:45 04/21/16 04:04 (Haldol Inj) 2 mg Q8H PRN IM 04/21/16 12:30 (Levaquin) 500 mg DAILY PO 04/22/16 09:00 . Family History Patient unable to provide family history, none documented in EMR. . Substance Use Per old EMR review: Tobacco: never smoked. Alcohol: none. Prescription med abuse:none. Illicits:none. . Psychosocial History . Resident of [facility]. Patient indicates she has 3 sons, only have phone numbers for 2 sons. Patient apparently has a legal guardian through the [employer], requested copy of paperwork. . Spiritual/Cultural Factors Baptism matt. Ethical and Legal Issues Patient is currently incapacitated to make her own health care decisions given underlying dementia, will not regain capacity. According to documentation patient has a legal guardian through the [employer]. Requested copy of documentation to support this. . Physical Exam Vital Signs Date Time Temp Pulse Resp B/P Pulse Ox O2 Delivery O2 Flow Rate FiO2 04/21/16 10:00 78 04/21/16 08:00 84 04/21/16 08:00 98.6 78 24 151/86 98 04/21/16 08:00 Room Air 04/21/16 06:00 63 04/21/16 04:00 72 04/21/16 04:00 96.2 72 25 165/77 99 04/21/16 02:00 74 04/21/16 00:00 63 04/21/16 00:00 98.4 63 16 176/87 99 04/20/16 22:00 62 04/20/16 20:00 73 04/20/16 20:00 97.9 73 23 159/60 99 04/20/16 19:00 93 Nasal Cannula 2.00 04/20/16 16:00 97.5 77 18 132/85 99 04/20/16 04/21/16 19:00 07:00 Intake Total 1108 ml 1151 ml Output Total 1000 ml 4150 ml Balance 108 ml -2999 ml Intake Oral 120 ml 40 ml IV Total 988 ml 1111 ml Output Urine Total 1000 ml 4150 ml # Bowel Movements 2 2 Exam CONSTITUTIONAL/GENERAL: This is thin, elderly, frail female, agitated. TUBES/LINES/DRAINS: PIVs, Martins, bilateral soft wrist restraints, SCD's SKIN: No jaundice, rashes, or lesions. Ecchymoses on upper extremities. Skin tears noted bilateral upper extremities. Heal redness and on right 1st toe. Skin temperature appropriate. Not diaphoretic. HEAD: Atraumatic. Normocephalic. EYES: Pupils equal and round and reactive. Extraocular motions intact. No scleral icterus. No injection or drainage. Fundi not examined. ENT: Hearing grossly normal. Nose without bleeding or purulent drainage. Throat without visible erythema, exudates, masses, or lesions. NECK: Trachea midline. Supple, nontender. No palpable thyroid enlargement or nodularity. CARDIOVASCULAR: Regular rate and rhythm without murmurs, gallops, or rubs. No JVD. Peripheral pulses symmetric. RESPIRATORY/CHEST: Symmetric, unlabored respirations. Diminished breath sounds bilaterally. GASTROINTESTINAL: Abdomen soft, non-tender, nondistended. No guarding. Bowel sounds present. GENITOURINARY: Without palpable bladder distension. Martins catheter in place. MUSCULOSKELETAL: Extremities without clubbing, cyanosis, or edema. No joint tenderness or effusion noted. No calf tenderness. No mottling or clubbing. LYMPHATICS: No palpable cervical or supraclavicular adenopathy. NEUROLOGICAL: Awake and alert. Confused. Calms easily. Moves all extremities. PSYCHIATRIC: agitated, confused, restless. . Diagnostic Tests Laboratory Laboratory Tests Test 04/19/16 04/19/16 04/19/16 04/19/16 01:00 01:25 01:29 02:20 White Blood Count 7.0 TH/MM3 (4.0-11.0) Red Blood Count 2.40 MIL/MM3 (4.00-5.30) Hemoglobin 7.1 GM/DL (11.6-15.3) Hematocrit 22.8 % (35.0-46.0) Mean Corpuscular Volume 95.1 FL (80.0-100.0) Mean Corpuscular Hemoglobin 29.8 PG (27.0-34.0) Mean Corpuscular Hemoglobin 31.3 % Concent (32.0-36.0) Red Cell Distribution Width 22.7 % (11.6-17.2) Platelet Count 246 TH/MM3 (150-450) Mean Platelet Volume 8.0 FL (7.0-11.0) Neutrophils (%) (Auto) 65.9 % (16.0-70.0) Lymphocytes (%) (Auto) 21.8 % (9.0-44.0) Monocytes (%) (Auto) 10.7 % (0.0-8.0) Eosinophils (%) (Auto) 0.9 % (0.0-4.0) Basophils (%) (Auto) 0.7 % (0.0-2.0) Neutrophils # (Auto) 4.6 TH/MM3 (1.8-7.7) Lymphocytes # (Auto) 1.5 TH/MM3 (1.0-4.8) Monocytes # (Auto) 0.7 TH/MM3 (0-0.9) Eosinophils # (Auto) 0.1 TH/MM3 (0-0.4) Basophils # (Auto) 0.0 TH/MM3 (0-0.2) CBC Comment DIFF FINAL Differential Comment Prothrombin Time 10.7 SEC (9.8-11.6) Prothromb Time International 1.0 RATIO Ratio Activated Partial 21.1 SEC Thromboplast Time (24.3-30.1) Urine Color YELLOW (YELLW/STRAW) Urine Turbidity CLEAR (CLEAR) Urine pH 6.0 (5.0-8.5) Urine Specific [place] 1.015 (1.002-1.035) Urine Protein NEG mg/dL (NEG-TRACE) Urine Glucose (UA) 1000 mg/dL (NEG) Urine Ketones NEG mg/dL (NEG) Urine Occult Blood NEG (NEG) Urine Nitrite NEG (NEG) Urine Bilirubin NEG (NEG) Urine Urobilinogen LESS THAN 2.0 MG/DL (LESS THAN 2.0) Urine Leukocyte Esterase NEG (NEG) Urine RBC LESS THAN 1 /hpf (0-3) Urine WBC LESS THAN 1 /hpf (0-5) Urine Squamous Epithelial <1 /hpf (0-5) Cells Urine Hyaline Casts 5 /lpf (RARE) Urine Mucus FEW /lpf (OCC) Microscopic Urinalysis Comment CATH-CULT NOT IND Sodium Level 141 MEQ/L (136-145) Potassium Level 5.1 MEQ/L (3.5-5.1) Chloride Level 106 MEQ/L (98-107) Carbon Dioxide Level 22.9 MEQ/L (21.0-32.0) Anion Gap 12 MEQ/L (5-15) Blood Urea Nitrogen 24 MG/DL (7-18) Creatinine 1.42 MG/DL (0.50-1.00) Estimat Glomerular Filtration 35 ML/MIN (>89) Rate Random Glucose 368 MG/DL (74-106) Lactic Acid Level 4.5 mmol/L (0.4-2.0) Calcium Level 8.0 MG/DL (8.5-10.1) Total Bilirubin 0.2 MG/DL (0.2-1.0) Aspartate Amino Transf 13 U/L (15-37) (AST/SGOT) Alanine Aminotransferase 23 U/L (10-53) (ALT/SGPT) Alkaline Phosphatase 77 U/L (45-117) Total Creatine Kinase 87 U/L (26-192) Troponin I 0.05 NG/ML (0.02-0.05) Total Protein 5.0 GM/DL (6.4-8.2) Albumin 2.4 GM/DL (3.4-5.0) Thyroid Stimulating Hormone 5.940 uIU/ML 3rd Gen (0.358-3.740) B-Hydroxybutyrate 0.15 MMOL/L (0.00-0.39) Random Cortisol 9.6 MCG/DL Blood Gas Puncture Site RT RADIAL Blood Gas Patient Temperature 98.6 Blood Gas HCO3 20 mmol/L (22-26) Blood Gas Base Excess -4.8 mmol/L (-2-2) Blood Gas Oxygen Saturation 59 % (90-100) Arterial Blood pH 7.31 (7.380-7.420) Arterial Blood Partial 42 mmHg (38-42) Pressure CO2 Arterial Blood Partial 35 mmHG Pressure O2 (61-120) Arterial Blood Oxygen Content 5.4 Vol % (12.0-20.0) Arterial Blood 2.3 % (0-4) Carboxyhemoglobin Arterial Blood Methemoglobin 2.1 % (0-2) Blood Gas Hemoglobin 6.4 G/DL (12.0-16.0) Blood Type A POSITIVE Antibody Screen NEGATIVE Crossmatch Leukocyte-Reduced Red Blood Cells Blood Bank Comment Test 04/19/16 04/19/16 04/19/16 04/19/16 03:00 05:30 06:30 11:05 Lactic Acid Level 2.9 mmol/L 1.7 mmol/L (0.4-2.0) (0.4-2.0) Nasal Screen MRSA (PCR) NEGATIVE (NEGATIVE) White Blood Count 8.3 TH/MM3 (4.0-11.0) Red Blood Count 3.33 MIL/MM3 (4.00-5.30) Hemoglobin 10.0 GM/DL (11.6-15.3) Hematocrit 29.5 % (35.0-46.0) Mean Corpuscular Volume 88.7 FL (80.0-100.0) Mean Corpuscular Hemoglobin 30.1 PG (27.0-34.0) Mean Corpuscular Hemoglobin 33.9 % Concent (32.0-36.0) Red Cell Distribution Width 19.6 % (11.6-17.2) Platelet Count 198 TH/MM3 (150-450) Mean Platelet Volume 7.9 FL (7.0-11.0) Test 04/19/16 04/20/16 04/21/16 17:20 04:14 04:29 Reticulocyte Count 1.9 % (0.4-3.0) Absolute Reticulocyte Count 61.3 MIL/L (20.0-150.0) Haptoglobin 97 MG/DL (30-200) Lactate Dehydrogenase 257 U/L (84-246) White Blood Count 8.9 TH/MM3 (4.0-11.0) Red Blood Count 3.46 MIL/MM3 (4.00-5.30) Hemoglobin 10.4 GM/DL 11.2 GM/DL (11.6-15.3) (11.6-15.3) Hematocrit 30.9 % 34.1 % (35.0-46.0) (35.0-46.0) Mean Corpuscular Volume 89.4 FL (80.0-100.0) Mean Corpuscular Hemoglobin 30.1 PG (27.0-34.0) Mean Corpuscular Hemoglobin 33.7 % Concent (32.0-36.0) Red Cell Distribution Width 19.5 % (11.6-17.2) Platelet Count 186 TH/MM3 (150-450) Mean Platelet Volume 7.5 FL (7.0-11.0) Neutrophils (%) (Auto) 69.2 % (16.0-70.0) Lymphocytes (%) (Auto) 19.4 % (9.0-44.0) Monocytes (%) (Auto) 9.2 % (0.0-8.0) Eosinophils (%) (Auto) 1.3 % (0.0-4.0) Basophils (%) (Auto) 0.9 % (0.0-2.0) Neutrophils # (Auto) 6.1 TH/MM3 (1.8-7.7) Lymphocytes # (Auto) 1.7 TH/MM3 (1.0-4.8) Monocytes # (Auto) 0.8 TH/MM3 (0-0.9) Eosinophils # (Auto) 0.1 TH/MM3 (0-0.4) Basophils # (Auto) 0.1 TH/MM3 (0-0.2) CBC Comment DIFF FINAL Differential Comment Sodium Level 142 MEQ/L (136-145) Potassium Level 3.9 MEQ/L (3.5-5.1) Chloride Level 108 MEQ/L (98-107) Carbon Dioxide Level 25.4 MEQ/L (21.0-32.0) Anion Gap 9 MEQ/L (5-15) Blood Urea Nitrogen 11 MG/DL (7-18) Creatinine 0.88 MG/DL (0.50-1.00) Estimat Glomerular Filtration 61 ML/MIN (>89) Rate Random Glucose 139 MG/DL (74-106) Calcium Level 7.4 MG/DL (8.5-10.1) Protein Corrected Calcium 8.6 MG/DL (8.5-10.1) Phosphorus Level 1.5 MG/DL (2.5-4.9) Magnesium Level 2.0 MG/DL (1.5-2.5) Total Bilirubin 0.7 MG/DL (0.2-1.0) Aspartate Amino Transf 14 U/L (15-37) (AST/SGOT) Alanine Aminotransferase 21 U/L (10-53) (ALT/SGPT) Alkaline Phosphatase 78 U/L (45-117) Total Protein 5.0 GM/DL (6.4-8.2) Albumin 2.3 GM/DL (3.4-5.0) Result Diagram: 04/21/16 0429 04/20/16 0414 Microbiology Microbiology Date/Time Procedure Status Source Growth 04/19/16 00:55 Aerobic Blood Culture - Preliminary Resulted Blood Peripheral NO GROWTH IN 2 DAYS 04/19/16 00:55 Anaerobic Blood Culture - Preliminary Resulted Blood Peripheral NO GROWTH IN 2 DAYS 04/19/16 01:00 Aerobic Blood Culture - Preliminary Resulted Blood Peripheral NO GROWTH IN 2 DAYS 04/19/16 01:00 Anaerobic Blood Culture - Preliminary Resulted Blood Peripheral NO GROWTH IN 2 DAYS 04/19/16 01:00 Urine Culture - Final Complete Urine Catheterized Urine NO GROWTH IN 48 HOURS. 04/19/16 01:00 Legionella Antigen - Final Complete Urine Catheterized Urine PRESUMPTIVE NEGATIVE FOR LEGIONELLA P... 04/19/16 01:00 Streptococcus pneumoniae Antigen (M - Final Complete Urine Catheterized Urine PRESUMPTIVE NEGATIVE FOR STREPTOCOCCU... 04/19/16 06:05 Influenza Types A,B Antigen (DARON) - Final Complete Nasal Washing NEGATIVE FOR FLU A AND B ANTIGEN.... . Imaging Last Impressions Chest X-Ray 04/19/16 0045 Signed Impressions: Service Date/Time: Tuesday, April 19, 2016 01:03 - CONCLUSION: 1. Minimal basilar scarring or subsegmental atelectasis. Improved bilateral airspace disease compared with April 05. Pablo Napier MD Head CT 04/19/16 0000 Signed Impressions: Service Date/Time: Tuesday, April 19, 2016 01:45 - CONCLUSION: 1. Stable exam since 2016. Remote left occipital infarct. Chronic white matter changes and cortical volume loss. Pablo Napier MD . Patient/Family Conference Present at Family Conference: Left message for Rosalba Blanc, reported legal guardian through [employer], awaiting return call. Contact a [facility] to request copies of legal guardianship papers. . Issues Discussed: * Palliative care contact information provided Assessment and Plan Disease Oriented Problem List: (1) GI bleed (2) Anemia (3) Lactic acidosis Comment: Resolved (4) Dementia Symptom Scale: (1) Altered mental status 0-10 Scale: Unable to quantify (2) Agitation 0-10 Scale: Unable to quantify Pertinent Non-Medical Issues Psychosocial: . Has 2 or 3 sons, cannot determine with certainty given patient's confusion. Spiritual: Baptism matt. Legal: According to records patient has a legal guardian through the [employer], Rosalba Blanc, however when I call her cell phone number she has an extended medical leave message. Called [employer] [facility], left message to further clarify legal guardianship. I have also contacted [facility] to request legal guardian paperwork. Ethical issues impacting care: No known concerns at this time. . Important Contacts * Rosalba Blanc, legal guardian, [facility]: [phone] (cell) or extension [phone] * Emmanuel Dueñas, son: [phone] lives in [place] * Benito Dueñas, son: [phone] lives in [facility] * Tianna, [id number] Prognosis Patient is an 89-year-old female with multiple medical comorbidities including dementia, prior stroke, diabetes, hypothyroidism and hypertension she is admitted with recurrent G.I. bleed, anemia. This is her 6th acute care hospitalization since December 2015. She is long-term care resident. Her overall prognosis is poor. She appears hospice appropriate if goals are comfort oriented. . Code Status: No Code Plan * According to records patient has a legal guardian through the [facility] , Rosalba Blanc, however when I call her cell phone number she has an extended medical leave message. Called [facility] office, left message to further clarify legal guardianship. I have also contacted [facility] to request legal guardian paperwork. * NO CODE [place] do not resuscitate order scanned into EMR and copy on chart dated 02/17/16. * Palliative care will need to determine legal decision maker prior to clarification of treatment goals. Will contact [facility] again 04/22/16 if no return call received. * SYMPTOMS: agitation: likely secondary to dementia, prior CVA, recent G.I. bleed, delirium. Has PRN Haldol available, none given. Has Xanax 0.25 mg every 6 hours PRN available, she has had 2 doses in the past 24 hours. Confusion: likely secondary to dementia, prior CVA, recent G.I. bleed, delirium. Appears to be improving since admission where she was reported to be nonverbal. I suspect she is near baseline at this time. Debility: long-term care resident of [facility]. Her appetite appears fair. No new medication recommendations at this time. * Palliative care will continue to follow throughout hospital course to assist with symptom management and further clarification of treatment goals. . Thank you for the opportunity to participate in the care of Ms. Dueñas. Attestation To help prompt me to consider important information that might be impacting today's encounter and assessment, information from prior notes written by myself or my colleagues may have been "brought forward" into today's note. My signature on this note, however, is an attestation that I personally performed the exam, history, and/or decision-making noted today, and, unless otherwise indicated, the interactions with patient, family, and staff as well as the review of records all occurred today. I also attest that the listed assessment and stated plan reflect my best clinical judgment today based on the combination of historical information, prior notes, and today's exam/ interactions. When time spent is documented, it refers only to time spent today by the signer, or if indicated, combined time spent today by collaborating physician/nurse practitioner. SHI SCHULTZ Apr 21, 2016 14:23
[2016-04-21] MEDS: DONEPEZIL HCL 5 MG TAB PO SCH (20:44)
[2016-04-22] VITALS: BP 126/80; PULSE 78; RESP 18; TEMP 97.4; O2SAT 96
[2016-04-22 04:00] VITALS: BP 127/71; PULSE 91; RESP 20; TEMP 97.2; O2SAT 95
[2016-04-22] MEDS: CHLORHEXIDINE GLUCONATE 2 % 1 PACK (2 CLOTHS) TOP SCH (04:00)
[2016-04-22] MEDS ORDERED: PHARMACY ORDERED LAB XX ONE (04:45)
[2016-04-22] MEDS: SODIUM CHLOR 0.9% 1000 ML INJ 1,000 ML IV SCH (04:51)
[2016-04-22] MEDS: POTASSIUM PHOSPHATE/SODIUM PHOSPHATE 250 MG TAB PO SCH (05:40)
[2016-04-22] MEDS: INSULIN NovoLIN REGULAR SUPPLEMENTAL SCALE SQ SCH ×4 (06:17→21:40)
[2016-04-22] MEDS: DOCUSATE SODIUM 100 MG CAP PO SCH ×2 (08:14→21:39)
[2016-04-22] MEDS: LEVOFLOXACIN 500 MG TAB PO SCH (08:15)
[2016-04-22 08:53] VITALS: BP 142/80; PULSE 89; RESP 16; TEMP 97.1; O2SAT 94
[2016-04-22] MEDS: SODIUM CHLORIDE 0.9% FLUSH 5 ML FLUSH IV FLUSH SCH ×2 (09:00→21:00)
[2016-04-22] MEDS: ALPRAZolam 0.25 MG TAB PO PRN ×2 (11:18→17:50)
--- NOTE | 2016-04-22 11:44 | HHI.PR ---
Subjective Remarks in no acute distress. confused and still on restraints. Objective Vitals Vital Signs Date Time Temp Pulse Resp B/P Pulse Ox O2 Delivery O2 Flow Rate FiO2 04/22/16 08:53 97.1 89 16 142/80 94 04/22/16 04:00 97.2 91 20 127/71 95 04/22/16 00:00 97.4 78 18 126/80 96 04/21/16 22:00 97.2 84 18 123/83 96 04/21/16 21:30 96 Room Air 04/21/16 20:00 97.8 74 20 156/70 95 04/21/16 20:00 77 04/21/16 19:00 95 Room Air 04/21/16 16:00 76 04/21/16 16:00 97.0 76 20 126/92 94 04/21/16 12:00 80 04/21/16 12:00 98.6 80 20 150/70 96 I/O 04/21/16 04/21/16 04/21/16 04/22/16 04/22/16 04/22/16 07:00 15:00 23:00 07:00 15:00 23:00 Intake Total 575 ml 910 ml 626 ml 1035 ml Output Total 1850 ml 1325 ml 1100 ml 600 ml Balance -1275 ml -415 ml -474 ml 435 ml Intake Oral 50 ml 160 ml 360 ml IV Total 575 ml 860 ml 466 ml 675 ml Output Urine Total 1850 ml 1325 ml 1100 ml 600 ml # Bowel Movements 1 2 2 3 Result Diagram: 04/21/16 0429 04/20/16 0414 Imaging Last Impressions Chest X-Ray 04/19/16 0045 Signed Impressions: Service Date/Time: Tuesday, April 19, 2016 01:03 - CONCLUSION: 1. Minimal basilar scarring or subsegmental atelectasis. Improved bilateral airspace disease compared with April 05. Pablo Napier MD Head CT 04/19/16 0000 Signed Impressions: Service Date/Time: Tuesday, April 19, 2016 01:45 - CONCLUSION: 1. Stable exam since 2015. Remote left occipital infarct. Chronic white matter changes and cortical volume loss. Pablo Napier MD Objective Remarks GENERAL: This is a well-nourished, well-developed patient, in no apparent distress. CARDIOVASCULAR: Regular rate and regular rhythm without murmurs, gallops, or rubs. RESPIRATORY: Clear to auscultation. Breath sounds equal bilaterally. No wheezes , rales, or rhonchi. GASTROINTESTINAL: Abdomen soft, non-tender, nondistended. Normal, active bowel sounds MUSCULOSKELETAL: Extremities without clubbing, cyanosis, or edema. NEURO: Awake but confused Procedures none Medications and IVs Current Medications Sodium Chloride 1,000 ml @ 1,000 mls/hr Q1H ONCE IV Last administered on 01:12; Start 04/19/16 at 00:45; Stop 04/19/16 at 01:44; Status DC Sodium Chloride 800 ml @ 1,000 mls/hr Q48M ONCE IV Last administered on 01:12; Start 04/19/16 at 00:45; Stop 04/19/16 at 01:32; Status DC Pantoprazole Sodium 80 mg/ Sodium Chloride 35 ml @ 420 mls/hr ONCE ONCE IV Last administered on 04/19/16 02:56; Start 04/19/16 at 02:15; Stop 04/19/16 at 02:19; Status DC Pantoprazole Sodium 80 mg/ Sodium Chloride 100 ml @ 10 mls/hr Q10H IV Last administered on 04/20/16 16:55; Start 04/19/16 at 02:15; Stop 04/21/16 at 00:04; Status DC Sodium Chloride 250 ml @ 15 mls/hr ONCE ONCE IV Last administered on 03:05; Start 04/19/16 at 02:15; Stop 04/19/16 at 18:54; Status DC Sodium Chloride (NS 1000 ml Inj) 1,000 ml @ 75 mls/hr [id number] IV Last administered on 04/22/16 04:51; Start 04/19/16 at 02:27 IV Flush (NS Flush) 2 ml UNSCH PRN IV FLUSH FLUSH AFTER USING IV ACCESS; Start 04/19/16 at 02:30; Stop 04/19/16 at 03:13; Status DC IV Flush (NS Flush) 2 ml BID IV FLUSH ; Start 04/19/16 at 09:00; Stop 04/19/16 at 09:00; Status DC Acetaminophen (Tylenol) 650 mg Q6H PRN PO PAIN 1-5 AND/OR FEVER >101F; Start at 02:30 Morphine Sulfate (Morphine Inj) 2 mg Q2H PRN IV PAIN SCALE 6 TO 10; Start 04/19 at 02:30; Stop 04/19/16 at 09:59; Status DC Famotidine (Pepcid Inj) 20 mg Q12HR IV PUSH ; Start 04/19/16 at 09:00; Stop at 09:00; Status DC Lorazepam (Ativan Inj) 2 mg Q4H PRN IV Agitation/Sedation; Start 04/19/16 at 02 :30; Stop 04/19/16 at 09:59; Status DC Ondansetron HCl (Zofran Inj) 4 mg Q6H PRN IV NAUSEA OR VOMITING; Start at 02:30 Metoclopramide HCl (Reglan Inj) 10 mg Q6H PRN IV NAUSEA OR VOMITING; Start at 02:30 Docusate Sodium (Colace) 100 mg BID PO Last administered on 04/22/16 08:14; Start 04/19/16 at 09:00 Zolpidem Tartrate (Ambien) 5 mg HS PRN PO INSOMNIA; Start 04/19/16 at 02:30; Stop 04/19/16 at 09:59; Status DC Albuterol/ Ipratropium (Duoneb Neb) 1 ampule Q2HR NEB PRN INH WHEEZING; Start 04/19/16 at 02:30 Heparin Sodium (Porcine) (Heparin Inj) 5,000 units Q8H SQ ; Start 04/19/16 at 06 :00; Stop 04/19/16 at 06:00; Status DC Miscellaneous Information 1 [id number] XX ; Start 04/19/16 at 02:30 Chlorhexidine Gluconate (Chlorhexidine 2% Cloth) 3 pack Taper DAILY@04 TOP Last administered on 04/21/16 04:00; Start 04/19/16 at 04:00; Stop 04/15/17 at 03:59 Chlorhexidine Gluconate (Chlorhexidine 2% Cloth) 3 pack UNSCH PRN TOP HYGIENIC CARE; Start 04/19/16 at 02:30 IV Flush (NS Flush) 2 ml UNSCH PRN IV FLUSH FLUSH AFTER USING IV ACCESS; Start 04/19/16 at 02:30 IV Flush 2 ml 2 ml BID IV FLUSH Last administered on 04/21/16 20:45; Start at 09:00 Vancomycin HCl 1000 mg/Sodium Chloride 250 ml @ 250 mls/hr ONCE ONCE IV Last administered on 04/19/16 04:53; Start 04/19/16 at 03:00; Stop 04/19/16 at 03:59 ; Status DC Pharmacy Profile Note 0 ml @ 0 mls/hr UNSCH XX ; Start 04/19/16 at 02:30; Stop 04/21/16 at 12:30; Status DC Piperacillin Sod/ Tazobactam Sod (Zosyn 4.5 Gm Premix) 100 ml @ 200 mls/hr Q6H IV ; Start 04/19/16 at 02:30; Status Cancel Dextrose (D50w (Vial) Inj) 25 ml UNSCH PRN IV PUSH HYPOGLYCEMIA-SEE COMMENTS Last administered on 04/20/16 21:19; Start 04/19/16 at 03:00 Glucagon (Glucagon Inj) 1 mg UNSCH PRN OTHER HYPOGLYCEMIA-SEE COMMENTS; Start 04/19/16 at 03:00; Stop 04/19/16 at 09:59; Status DC Insulin Human Regular (NovoLIN R SUPPLEMENTAL SCALE) 1 ACHS SLIDING SCALE SQ Last administered on 04/22/16 11:18; Start 04/19/16 at 07:00 Pantoprazole Sodium 40 mg 40 mg Q12H IV PUSH ; Start 04/19/16 at 03:00; Stop at 03:12; Status DC Piperacillin Sod/ Tazobactam Sod 50 ml @ 100 mls/hr Q6H IV Last administered on 04/21/16 09:34; Start 04/19/16 at 03:00; Stop 04/21/16 at 12:33; Status DC Vancomycin HCl/ Sodium Chloride (Vancomycin Inj/ NS 250 ml Inj) 250 ml @ 250 mls/hr Q24H IV Last administered on 04/21/16 05:52; Start 04/20/16 at 05:00; Stop 04/21/16 at 12:35; Status DC Miscellaneous Information SPECIFIC LAB TO BE DRAWN:VANCOMYCIN TROUGH DATE TO... ONCE ONCE XX ; Start 04/22/16 at 04:45; Stop 04/22/16 at 04:46; Status Cancel Propofol (Diprivan 1000 Mg/100ml Inj) 100 ml @ As Directed STK-MED ONCE .ROUTE ; Start 04/19/16 at 10:23; Stop 04/19/16 at 10:24; Status DC Potassium Phos/ Sodium Phos (K-Phos Neutral) 250 mg Q8HR PO Last administered on 04/22/16 05:40; Start 04/20/16 at 09:30 Enalaprilat (Vasotec Inj) 1.25 mg Q8H PRN IV PUSH SBP> 180 OR DBP > 110. Last administered on 04/21/16 01:17; Start 04/20/16 at 09:30 Donepezil HCl (Aricept) 5 mg HS PO Last administered on 04/21/16 20:44; Start 04/20/16 at 21:00 Patient Own Medication PT OWN MED: NAMENDA... DAILY PO ; Start 04/21/16 at 09:00 ; Status Hold Alprazolam (Xanax) 0.25 mg Q6H PRN PO ANXIETY Last administered on 04/22/16 11: 18; Start 04/20/16 at 17:45 Haloperidol Lactate (Haldol Inj) 2 mg Q8H PRN IM AGITATION AND/OR HALLUCINATION ; Start 04/21/16 at 12:30 Levofloxacin (Levaquin) 500 mg DAILY PO Last administered on 04/22/16 08:15; Start 04/22/16 at 09:00 A/P Assessment and Plan A/P Sepsis - Unclear source - Cultures negative - continue levaquin Hypotension-has resolved - IV fluids resuscitation Anemia - Recent history of questionable GI bleed - continue protonix - Transfused 2 units of PRBC and now H/H stable. - will monitor H/H Dementia -resumed home meds - Supportive care Diabetes - Insulin sliding scale Hypothyroidism - Synthroid DVT GI prophylaxis - Protonix - Teds SCDs - No chemical DVT prophylaxis due to possible GI bleed consulted PT/ST. palliative care consult appreciated. DNr status. Massiel Ferrell MD Apr 22, 2016 11:44
[2016-04-22] MEDS: PANTOPRAZOLE SOD 40 MG DELAYED RELEASE TAB PO SCH (12:06)
[2016-04-22 12:55] VITALS: BP 161/74; PULSE 89; RESP 18; TEMP 97; O2SAT 98
--- NOTE | 2016-04-22 15:47 | HHI.HCPN ---
Reason for visit a. To assist with evaluation and management of symptoms including: confusion , agitation. b. To assist medical decision maker(s) with: better understanding of current medical conditions; weighing benefits/burdens of medical treatment options; making medical treatment decisions. . Subjective/Interval History Patient is seen and examined in room. Discussed with LABEL REWINDER who reports patient did well sitting in nurses station earlier today. No family at bedside. Patient is alert and restless, confused. She is begging me to untie wrist restraints, though is trying to climb out of bed. Afebrile. BP 161/74 this afternoon. No new labs or imaging. . Family/friend interactions Call placed to [facility] to request Rosalba Blanc call for medical update. Provided update. Reviewed concern for declining health given advanced age, comorbidities and repeat hospitalizations. Spoke about likely further decline and hospitalizations and that patient is appropriate for hospice services. Rosalba is going to speak with patient sons and let me know if she decides to send pt back to [facility] with hospice support. Discussed with Dr. Ferrell. Will await Rosalba Blanc ([facility]) decision. . Advance Directives Advance Directive Specifics Health Care Surrogate(s): Legal HCP through [facility] is Rosalba Blanc. . Significant change in goals: NO CODE. Considering hospice, Rosalba Blanc legal HCP through [facility] will notify if she decides to consider transition to comfort with hospice upon DC. . Objective Vital Signs Date Time Temp Pulse Resp B/P Pulse Ox O2 Delivery O2 Flow Rate FiO2 04/22/16 12:55 97.0 89 18 161/74 98 04/22/16 08:53 97.1 89 16 142/80 94 04/22/16 08:14 98 Room Air 04/22/16 04:00 97.2 91 20 127/71 95 04/22/16 00:00 97.4 78 18 126/80 96 04/21/16 22:00 97.2 84 18 123/83 96 04/21/16 21:30 96 Room Air 04/21/16 20:00 97.8 74 20 156/70 95 04/21/16 20:00 77 04/21/16 19:00 95 Room Air 04/21/16 16:00 76 04/21/16 16:00 97.0 76 20 126/92 94 Intake & Output 04/22/16 04/22/16 07:00 19:00 Intake Total 1661 ml Output Total 1700 ml Balance -39 ml Intake Oral 520 ml IV Total 1141 ml Output Urine Total 1700 ml # Bowel Movements 5 Physical Exam CONSTITUTIONAL/GENERAL: This is thin, elderly, frail female, agitated. TUBES/LINES/DRAINS: PIVs, Martins, bilateral soft wrist restraints, SCD's SKIN: No jaundice, rashes, or lesions. Ecchymoses on upper extremities. Skin tears noted bilateral upper extremities. Heal redness and on right 1st toe. Skin temperature appropriate. Not diaphoretic. CARDIOVASCULAR: Regular rate and rhythm without murmurs, gallops, or rubs. RESPIRATORY/CHEST: Symmetric, unlabored respirations. Diminished breath sounds bilaterally. GASTROINTESTINAL: Abdomen soft, non-tender, nondistended. No guarding. Bowel sounds present. GENITOURINARY: Without palpable bladder distension. Martins catheter in place. MUSCULOSKELETAL: Extremities without clubbing, cyanosis, or edema. No joint tenderness or effusion noted. No calf tenderness. No mottling or clubbing. NEUROLOGICAL: Awake and alert. Confused. Calms easily. Moves all extremities. PSYCHIATRIC: agitated, confused, restless. . Diagnostic Tests Laboratory Laboratory Tests Test 04/19/16 04/20/16 04/21/16 04/22/16 17:20 04:14 04:29 07:25 Reticulocyte Count 1.9 % (0.4-3.0) Absolute Reticulocyte Count 61.3 MIL/L (20.0-150.0) Haptoglobin 97 MG/DL (30-200) Lactate Dehydrogenase 257 U/L (84-246) White Blood Count 8.9 TH/MM3 (4.0-11.0) Red Blood Count 3.46 MIL/MM3 (4.00-5.30) Hemoglobin 10.4 GM/DL 11.2 GM/DL (11.6-15.3) (11.6-15.3) Hematocrit 30.9 % 34.1 % (35.0-46.0) (35.0-46.0) Mean Corpuscular Volume 89.4 FL (80.0-100.0) Mean Corpuscular Hemoglobin 30.1 PG (27.0-34.0) Mean Corpuscular Hemoglobin 33.7 % Concent (32.0-36.0) Red Cell Distribution Width 19.5 % (11.6-17.2) Platelet Count 186 TH/MM3 (150-450) Mean Platelet Volume 7.5 FL (7.0-11.0) Neutrophils (%) (Auto) 69.2 % (16.0-70.0) Lymphocytes (%) (Auto) 19.4 % (9.0-44.0) Monocytes (%) (Auto) 9.2 % (0.0-8.0) Eosinophils (%) (Auto) 1.3 % (0.0-4.0) Basophils (%) (Auto) 0.9 % (0.0-2.0) Neutrophils # (Auto) 6.1 TH/MM3 (1.8-7.7) Lymphocytes # (Auto) 1.7 TH/MM3 (1.0-4.8) Monocytes # (Auto) 0.8 TH/MM3 (0-0.9) Eosinophils # (Auto) 0.1 TH/MM3 (0-0.4) Basophils # (Auto) 0.1 TH/MM3 (0-0.2) CBC Comment DIFF FINAL Differential Comment Sodium Level 142 MEQ/L (136-145) Potassium Level 3.9 MEQ/L (3.5-5.1) Chloride Level 108 MEQ/L (98-107) Carbon Dioxide Level 25.4 MEQ/L (21.0-32.0) Anion Gap 9 MEQ/L (5-15) Blood Urea Nitrogen 11 MG/DL (7-18) Creatinine 0.88 MG/DL (0.50-1.00) Estimat Glomerular Filtration 61 ML/MIN (>89) Rate Random Glucose 139 MG/DL (74-106) Calcium Level 7.4 MG/DL (8.5-10.1) Protein Corrected Calcium 8.6 MG/DL (8.5-10.1) Phosphorus Level 1.5 MG/DL 2.7 MG/DL (2.5-4.9) (2.5-4.9) Magnesium Level 2.0 MG/DL (1.5-2.5) Total Bilirubin 0.7 MG/DL (0.2-1.0) Aspartate Amino Transf 14 U/L (15-37) (AST/SGOT) Alanine Aminotransferase 21 U/L (10-53) (ALT/SGPT) Alkaline Phosphatase 78 U/L (45-117) Total Protein 5.0 GM/DL (6.4-8.2) Albumin 2.3 GM/DL (3.4-5.0) Result Diagram: 04/21/16 0429 04/20/16 0414 Microbiology Microbiology Date/Time Procedure Status Source Growth 04/19/16 06:05 Influenza Types A,B Antigen (DARON) - Final Complete Nasal Washing NEGATIVE FOR FLU A AND B ANTIGEN.... 04/19/16 01:00 Urine Culture - Final Complete Urine Catheterized Urine NO GROWTH IN 48 HOURS. 04/19/16 01:00 Legionella Antigen - Final Complete Urine Catheterized Urine PRESUMPTIVE NEGATIVE FOR LEGIONELLA P... 04/19/16 01:00 Streptococcus pneumoniae Antigen (M - Final Complete Urine Catheterized Urine PRESUMPTIVE NEGATIVE FOR STREPTOCOCCU... 04/19/16 01:00 Aerobic Blood Culture - Preliminary Resulted Blood Peripheral NO GROWTH IN 3 DAYS 04/19/16 01:00 Anaerobic Blood Culture - Preliminary Resulted Blood Peripheral NO GROWTH IN 3 DAYS Imaging Last Impressions Chest X-Ray 04/19/16 0045 Signed Impressions: Service Date/Time: Tuesday, April 19, 2016 01:03 - CONCLUSION: 1. Minimal basilar scarring or subsegmental atelectasis. Improved bilateral airspace disease compared with April 05. Pablo Napier MD Head CT 04/19/16 0000 Signed Impressions: Service Date/Time: Tuesday, April 19, 2016 01:45 - CONCLUSION: 1. Stable exam since 2016. Remote left occipital infarct. Chronic white matter changes and cortical volume loss. Pablo Napier MD . Assessment and Plan Disease Oriented Problem List: (1) GI bleed (2) Anemia (3) Lactic acidosis Comment: Resolved (4) Dementia Symptom Scale: (1) Altered mental status 0-10 Scale: Unable to quantify (2) Agitation 0-10 Scale: Unable to quantify Pertinent Non-Medical Issues Psychosocial: . Has 2 or 3 sons, cannot determine with certainty given patient's confusion. Spiritual: Restorationism matt. Legal:Rosalba Blanc has confirmed she is legal HCP through the [facility]. I have also contacted [facility] to request legal guardian paperwork. Ethical issues impacting care: No known concerns at this time. . Important Contacts * Rosalba Blanc, legal guardian, [phone] (cell) or extension [phone] * Emmanuel Dueñas, son: [phone] lives in [place] * Benito Dueñas, son: [phone] lives in [facility] * Tianna, [id number] Prognosis Patient is an 89-year-old female with multiple medical comorbidities including dementia, prior stroke, diabetes, hypothyroidism and hypertension she is admitted with recurrent G.I. bleed, anemia. This is her 6th acute care hospitalization since December 2015. She is long-term care resident. Her overall prognosis is poor. She appears hospice appropriate if goals are comfort oriented. . Code Status: No Code Plan * Rosalba Blanc has confirmed she is legal HCP through the [facility]. * NO CODE [place] do not resuscitate order scanned into EMR and copy on chart dated 02/17/16. * 04/22/16 - Call placed to [facility] to request Rosalba Blanc call for medical update. Provided update. Reviewed concern for declining health given advanced age, comorbidities and repeat hospitalizations. Spoke about likely further decline and hospitalizations and that patient is appropriate for hospice services. Rosalba is going to speak with patient sons and let me know if she decides to send pt back to [facility] with hospice support. Discussed with Dr. Ferrell. Will await Rosalba Blanc ([facility] HCP) decision. * SYMPTOMS: agitation: likely secondary to dementia, prior CVA, recent G.I. bleed, delirium. Has PRN Haldol available, none given. Has Xanax 0.25 mg every 6 hours PRN available, she has had 2 doses in the past 24 hours. Confusion: likely secondary to dementia, prior CVA, recent G.I. bleed, delirium. Appears to be improving since admission where she was reported to be nonverbal. I suspect she is near baseline at this time. Debility: long-term care resident of [facility]. Ate only 25% breakfast. No new medication recommendations at this time. * Palliative care will continue to follow throughout hospital course to assist with symptom management and further clarification of treatment goals. . Attestation To help prompt me to consider important information that might be impacting today's encounter and assessment, information from prior notes written by myself or my colleagues may have been "brought forward" into today's note. My signature on this note, however, is an attestation that I personally performed the exam, history, and/or decision-making noted today, and, unless otherwise indicated, the interactions with patient, family, and staff as well as the review of records all occurred today. I also attest that the listed assessment and stated plan reflect my best clinical judgment today based on the combination of historical information, prior notes, and today's exam/ interactions. When time spent is documented, it refers only to time spent today by the signer, or if indicated, combined time spent today by collaborating physician/nurse practitioner. SHI SCHULTZ Apr 22, 2016 15:47
[2016-04-22 17:31] VITALS: BP 153/85; PULSE 103; RESP 19; TEMP 96.6; O2SAT 94
[2016-04-22 20:00] VITALS: BP 166/74; PULSE 77; RESP 18; TEMP 97.2; O2SAT 94
[2016-04-22] MEDS: DONEPEZIL HCL 5 MG TAB PO SCH (21:39)
[2016-04-23] VITALS (7 sets, daily range): BP systolic 103–190; BP diastolic 60–84; PULSE 75–105; RESP 18–21; TEMP 95.6–98.4; O2SAT 90–100
[2016-04-23] MEDS ORDERED: SODIUM CHLOR 0.9% 1000 ML INJ 1,000 ML IV ONE (02:27)
[2016-04-23] MEDS: CHLORHEXIDINE GLUCONATE 2 % 1 PACK (2 CLOTHS) TOP SCH (03:09)
[2016-04-23] MEDS: ENALAPRILAT 1.25 MG/ML VIAL IV PUSH PRN (05:23)
[2016-04-23] MEDS: INSULIN NovoLIN REGULAR SUPPLEMENTAL SCALE SQ SCH ×4 (06:38→21:00)
[2016-04-23] MEDS: LEVOFLOXACIN 500 MG TAB PO SCH (10:04)
[2016-04-23] MEDS: DOCUSATE SODIUM 100 MG CAP PO SCH ×2 (10:04→22:43)
[2016-04-23] MEDS: PANTOPRAZOLE SOD 40 MG DELAYED RELEASE TAB PO SCH (10:04)
[2016-04-23] MEDS: SODIUM CHLORIDE 0.9% FLUSH 5 ML FLUSH IV FLUSH SCH ×2 (10:08→22:44)
[2016-04-23] MEDS: ALPRAZolam 0.25 MG TAB PO PRN ×2 (11:06→17:09)
--- NOTE | 2016-04-23 12:22 | HHI.PR ---
Subjective Remarks sitting on the chair with no distress. d/w the RN and other than occasional episodes of agitation, no other acute issues over night. Objective Vitals Vital Signs Date Time Temp Pulse Resp B/P Pulse Ox O2 Delivery O2 Flow Rate FiO2 04/23/16 07:45 98.4 100 20 151/80 98 04/23/16 07:38 Room Air 04/23/16 06:33 85 163/74 04/23/16 04:00 97.3 75 18 190/84 99 04/23/16 00:52 95.6 83 21 143/76 100 04/22/16 22:12 Room Air 04/22/16 20:00 97.2 77 18 166/74 94 04/22/16 17:31 96.6 103 19 153/85 94 04/22/16 12:55 97.0 89 18 161/74 98 I/O 04/22/16 04/22/16 04/22/16 04/23/16 04/23/16 04/23/16 07:00 15:00 23:00 07:00 15:00 23:00 Intake Total 1035 ml 60 ml 900 ml Output Total 600 ml 350 ml 1200 ml 1100 ml Balance 435 ml -290 ml -1200 ml -200 ml Intake Oral 360 ml 60 ml IV Total 675 ml 900 ml Output Urine Total 600 ml 350 ml 1200 ml 1100 ml # Bowel Movements 3 Result Diagram: 04/21/16 0429 04/20/16 0414 Imaging Last Impressions Chest X-Ray 04/19/16 0045 Signed Impressions: Service Date/Time: Tuesday, April 19, 2016 01:03 - CONCLUSION: 1. Minimal basilar scarring or subsegmental atelectasis. Improved bilateral airspace disease compared with April 05. Pablo Napier MD Head CT 04/19/16 0000 Signed Impressions: Service Date/Time: Tuesday, April 19, 2016 01:45 - CONCLUSION: 1. Stable exam since 2016. Remote left occipital infarct. Chronic white matter changes and cortical volume loss. Pablo Napier MD Objective Remarks GENERAL: This is a well-nourished, well-developed patient, in no apparent distress. CARDIOVASCULAR: Regular rate and regular rhythm without murmurs, gallops, or rubs. RESPIRATORY: Clear to auscultation. Breath sounds equal bilaterally. No wheezes , rales, or rhonchi. GASTROINTESTINAL: Abdomen soft, non-tender, nondistended. Normal, active bowel sounds MUSCULOSKELETAL: Extremities without clubbing, cyanosis, or edema. NEURO: Awake but confused Procedures none Medications and IVs Current Medications Sodium Chloride 1,000 ml @ 1,000 mls/hr Q1H ONCE IV Last administered on 01:12; Start 04/19/16 at 00:45; Stop 04/19/16 at 01:44; Status DC Sodium Chloride 800 ml @ 1,000 mls/hr Q48M ONCE IV Last administered on 01:12; Start 04/19/16 at 00:45; Stop 04/19/16 at 01:32; Status DC Pantoprazole Sodium 80 mg/ Sodium Chloride 35 ml @ 420 mls/hr ONCE ONCE IV Last administered on 04/19/16 02:56; Start 04/19/16 at 02:15; Stop 04/19/16 at 02:19; Status DC Pantoprazole Sodium 80 mg/ Sodium Chloride 100 ml @ 10 mls/hr Q10H IV Last administered on 04/20/16 16:55; Start 04/19/16 at 02:15; Stop 04/21/16 at 00:04; Status DC Sodium Chloride 250 ml @ 15 mls/hr ONCE ONCE IV Last administered on 03:05; Start 04/19/16 at 02:15; Stop 04/19/16 at 18:54; Status DC Sodium Chloride (NS 1000 ml Inj) 1,000 ml @ 75 mls/hr [id number] IV Last administered on 04/22/16 04:51; Start 04/19/16 at 02:27; Stop 04/22/16 at 11:49; Status DC IV Flush (NS Flush) 2 ml UNSCH PRN IV FLUSH FLUSH AFTER USING IV ACCESS; Start 04/19/16 at 02:30; Stop 04/19/16 at 03:13; Status DC IV Flush (NS Flush) 2 ml BID IV FLUSH ; Start 04/19/16 at 09:00; Stop 04/19/16 at 09:00; Status DC Acetaminophen (Tylenol) 650 mg Q6H PRN PO PAIN 1-5 AND/OR FEVER >101F; Start at 02:30 Morphine Sulfate (Morphine Inj) 2 mg Q2H PRN IV PAIN SCALE 6 TO 10; Start 04/19 at 02:30; Stop 04/19/16 at 09:59; Status DC Famotidine (Pepcid Inj) 20 mg Q12HR IV PUSH ; Start 04/19/16 at 09:00; Stop at 09:00; Status DC Lorazepam (Ativan Inj) 2 mg Q4H PRN IV Agitation/Sedation; Start 04/19/16 at 02 :30; Stop 04/19/16 at 09:59; Status DC Ondansetron HCl (Zofran Inj) 4 mg Q6H PRN IV NAUSEA OR VOMITING; Start at 02:30 Metoclopramide HCl (Reglan Inj) 10 mg Q6H PRN IV NAUSEA OR VOMITING; Start at 02:30 Docusate Sodium (Colace) 100 mg BID PO Last administered on 04/23/16 10:04; Start 04/19/16 at 09:00 Zolpidem Tartrate (Ambien) 5 mg HS PRN PO INSOMNIA; Start 04/19/16 at 02:30; Stop 04/19/16 at 09:59; Status DC Albuterol/ Ipratropium (Duoneb Neb) 1 ampule Q2HR NEB PRN INH WHEEZING; Start 04/19/16 at 02:30 Heparin Sodium (Porcine) (Heparin Inj) 5,000 units Q8H SQ ; Start 04/19/16 at 06 :00; Stop 04/19/16 at 06:00; Status DC Miscellaneous Information 1 Q361D XX ; Start 04/19/16 at 02:30 Chlorhexidine Gluconate (Chlorhexidine 2% Cloth) 3 pack Taper DAILY@04 TOP Last administered on 04/21/16 04:00; Start 04/19/16 at 04:00; Stop 04/15/17 at 03:59 Chlorhexidine Gluconate (Chlorhexidine 2% Cloth) 3 pack UNSCH PRN TOP HYGIENIC CARE; Start 04/19/16 at 02:30 IV Flush (NS Flush) 2 ml UNSCH PRN IV FLUSH FLUSH AFTER USING IV ACCESS; Start 04/19/16 at 02:30 IV Flush 2 ml 2 ml BID IV FLUSH Last administered on 04/23/16 10:08; Start at 09:00 Vancomycin HCl 1000 mg/Sodium Chloride 250 ml @ 250 mls/hr ONCE ONCE IV Last administered on 04/19/16 04:53; Start 04/19/16 at 03:00; Stop 04/19/16 at 03:59 ; Status DC Pharmacy Profile Note 0 ml @ 0 mls/hr UNSCH XX ; Start 04/19/16 at 02:30; Stop 04/21/16 at 12:30; Status DC Piperacillin Sod/ Tazobactam Sod (Zosyn 4.5 Gm Premix) 100 ml @ 200 mls/hr Q6H IV ; Start 04/19/16 at 02:30; Status Cancel Dextrose (D50w (Vial) Inj) 25 ml UNSCH PRN IV PUSH HYPOGLYCEMIA-SEE COMMENTS Last administered on 04/20/16 21:19; Start 04/19/16 at 03:00 Glucagon (Glucagon Inj) 1 mg UNSCH PRN OTHER HYPOGLYCEMIA-SEE COMMENTS; Start 04/19/16 at 03:00; Stop 04/19/16 at 09:59; Status DC Insulin Human Regular (NovoLIN R SUPPLEMENTAL SCALE) 1 ACHS SLIDING SCALE SQ Last administered on 04/23/16 11:23; Start 04/19/16 at 07:00 Pantoprazole Sodium 40 mg 40 mg Q12H IV PUSH ; Start 04/19/16 at 03:00; Stop at 03:12; Status DC Piperacillin Sod/ Tazobactam Sod 50 ml @ 100 mls/hr Q6H IV Last administered on 04/21/16 09:34; Start 04/19/16 at 03:00; Stop 04/21/16 at 12:33; Status DC Vancomycin HCl/ Sodium Chloride (Vancomycin Inj/ NS 250 ml Inj) 250 ml @ 250 mls/hr Q24H IV Last administered on 04/21/16 05:52; Start 04/20/16 at 05:00; Stop 04/21/16 at 12:35; Status DC Miscellaneous Information SPECIFIC LAB TO BE DRAWN:VANCOMYCIN TROUGH DATE TO... ONCE ONCE XX ; Start 04/22/16 at 04:45; Stop 04/22/16 at 04:46; Status Cancel Propofol (Diprivan 1000 Mg/100ml Inj) 100 ml @ As Directed STK-MED ONCE .ROUTE ; Start 04/19/16 at 10:23; Stop 04/19/16 at 10:24; Status DC Potassium Phos/ Sodium Phos (K-Phos Neutral) 250 mg Q8HR PO Last administered on 04/22/16 05:40; Start 04/20/16 at 09:30; Stop 04/22/16 at 11:47; Status DC Enalaprilat (Vasotec Inj) 1.25 mg Q8H PRN IV PUSH SBP> 180 OR DBP > 110. Last administered on 04/23/16 05:23; Start 04/20/16 at 09:30 Donepezil HCl (Aricept) 5 mg HS PO Last administered on 04/22/16 21:39; Start 04/20/16 at 21:00 Patient Own Medication PT OWN MED: NAMENDA... DAILY PO ; Start 04/21/16 at 09:00 ; Status Hold Alprazolam (Xanax) 0.25 mg Q6H PRN PO ANXIETY Last administered on 04/23/16 11: 06; Start 04/20/16 at 17:45 Haloperidol Lactate (Haldol Inj) 2 mg Q8H PRN IM AGITATION AND/OR HALLUCINATION Last administered on 04/22/16 14:22; Start 04/21/16 at 12:30 Levofloxacin (Levaquin) 500 mg DAILY PO Last administered on 04/23/16 10:04; Start 04/22/16 at 09:00 Pantoprazole Sodium 40 mg 40 mg DAILY PO Last administered on 04/23/16 10:04; Start 04/22/16 at 11:45 Sodium Chloride (NS 1000 ml Inj) 1,000 ml @ 760 mls/hr Q1H19M ONCE IV ; Start 04/23/16 at 02:27; Stop 04/23/16 at 03:45; Status DC A/P Assessment and Plan A/P Sepsis - Unclear source - Cultures negative - continue levaquin Hypotension-has resolved - IV fluids resuscitation Anemia - Recent history of questionable GI bleed - continue protonix - Transfused 2 units of PRBC and now H/H stable. - will monitor H/H Dementia -resumed home meds - Supportive care Diabetes - Insulin sliding scale Hypothyroidism - Synthroid DVT GI prophylaxis - Protonix - Teds SCDs - No chemical DVT prophylaxis due to possible GI bleed consulted PT/ST. palliative care consult appreciated. DNr status. Discharge Planning previously d/w palliative care; possible dc to hospice pending the family decision. Massiel Ferrell MD Apr 23, 2016 12:22
--- NOTE | 2016-04-23 16:16 | PQ ---
Physician Query Response Document PATIENT: LATOYA BYNUM : [id number] ADMIT DATE: 04/19/2016 2:25 AM DISCH DATE: RESPONDING PROVIDER #: [email or web address] QUERY TEXT: Anemia Type Anemia is documented in the Medical Record. Please specify the cause (includes suspected or probable cause) Such as: -- Due to acute blood loss -- Due to chronic blood loss -- Due to iron deficiency -- Due to postoperative blood loss -- Due to chronic disease -- Other, please specify The patient's Clinical Indicators include: Acute on chronic anemia. 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 04/19/16 0304 Query created by: Agatha Barba on 04/21/2016 1:45 PM RESPONSE TEXT: Acute on chronic anemia due to possible GI bleed. Electronically signed by: Massiel Ferrell MD 04/23/2016 4:13 PM
[2016-04-23] MEDS: DONEPEZIL HCL 5 MG TAB PO SCH (22:43)
[2016-04-24] VITALS: BP 141/65; PULSE 91; RESP 20; TEMP 96.6; O2SAT 98
[2016-04-24 04:00] VITALS: BP 149/59; PULSE 88; RESP 20; TEMP 96.9; O2SAT 97
[2016-04-24] MEDS: CHLORHEXIDINE GLUCONATE 2 % 1 PACK (2 CLOTHS) TOP SCH (04:00)
[2016-04-24] MEDS: INSULIN NovoLIN REGULAR SUPPLEMENTAL SCALE SQ SCH ×4 (06:45→20:18)
[2016-04-24 08:17] VITALS: BP 114/53; PULSE 115; RESP 20; TEMP 95.6; O2SAT 95
[2016-04-24] MEDS: LEVOFLOXACIN 500 MG TAB PO SCH (08:17)
[2016-04-24] MEDS: PANTOPRAZOLE SOD 40 MG DELAYED RELEASE TAB PO SCH (08:17)
[2016-04-24] MEDS: DOCUSATE SODIUM 100 MG CAP PO SCH ×2 (08:17→20:18)
[2016-04-24] MEDS: SODIUM CHLORIDE 0.9% FLUSH 5 ML FLUSH IV FLUSH SCH ×2 (08:18→20:18)
--- NOTE | 2016-04-24 11:40 | HHI.PR ---
Subjective Remarks resting comfortably with no distress. d/w the RN and no acute issues over night. Objective Vitals Vital Signs Date Time Temp Pulse Resp B/P Pulse Ox O2 Delivery O2 Flow Rate FiO2 04/24/16 08:17 95.6 115 20 114/53 95 04/24/16 07:00 Room Air 04/24/16 04:00 96.9 88 20 149/59 97 04/24/16 00:00 96.6 91 20 141/65 98 04/23/16 22:45 Room Air 04/23/16 20:00 97.2 95 20 103/62 96 04/23/16 16:08 96.1 99 20 123/60 99 04/23/16 12:15 95.7 105 20 130/61 90 I/O 04/23/16 04/23/16 04/23/16 04/24/16 04/24/16 04/24/16 07:00 15:00 23:00 07:00 15:00 23:00 Intake Total 900 ml 720 ml Output Total 1100 ml 350 ml 1400 ml Balance -200 ml 370 ml -1400 ml Intake Oral 720 ml IV Total 900 ml Output Urine Total 1100 ml 350 ml 1400 ml # Bowel Movements 1 Result Diagram: 04/21/16 0429 04/20/16 0414 Imaging Last Impressions Chest X-Ray 04/19/16 0045 Signed Impressions: Service Date/Time: Tuesday, April 19, 2016 01:03 - CONCLUSION: 1. Minimal basilar scarring or subsegmental atelectasis. Improved bilateral airspace disease compared with April 05. Pablo Napier MD Head CT 04/19/16 0000 Signed Impressions: Service Date/Time: Tuesday, April 19, 2016 01:45 - CONCLUSION: 1. Stable exam since 2016. Remote left occipital infarct. Chronic white matter changes and cortical volume loss. Pablo Napier MD Objective Remarks GENERAL: This is a well-nourished, well-developed patient, in no apparent distress. CARDIOVASCULAR: Regular rate and regular rhythm without murmurs, gallops, or rubs. RESPIRATORY: Clear to auscultation. Breath sounds equal bilaterally. No wheezes , rales, or rhonchi. GASTROINTESTINAL: Abdomen soft, non-tender, nondistended. Normal, active bowel sounds MUSCULOSKELETAL: Extremities without clubbing, cyanosis, or edema. NEURO: Awake but confused Procedures none Medications and IVs Current Medications Sodium Chloride 1,000 ml @ 1,000 mls/hr Q1H ONCE IV Last administered on 01:12; Start 04/19/16 at 00:45; Stop 04/19/16 at 01:44; Status DC Sodium Chloride 800 ml @ 1,000 mls/hr Q48M ONCE IV Last administered on 01:12; Start 04/19/16 at 00:45; Stop 04/19/16 at 01:32; Status DC Pantoprazole Sodium 80 mg/ Sodium Chloride 35 ml @ 420 mls/hr ONCE ONCE IV Last administered on 04/19/16 02:56; Start 04/19/16 at 02:15; Stop 04/19/16 at 02:19; Status DC Pantoprazole Sodium 80 mg/ Sodium Chloride 100 ml @ 10 mls/hr Q10H IV Last administered on 04/20/16 16:55; Start 04/19/16 at 02:15; Stop 04/21/16 at 00:04; Status DC Sodium Chloride 250 ml @ 15 mls/hr ONCE ONCE IV Last administered on 03:05; Start 04/19/16 at 02:15; Stop 04/19/16 at 18:54; Status DC Sodium Chloride (NS 1000 ml Inj) 1,000 ml @ 75 mls/hr [id number] IV Last administered on 04/22/16 04:51; Start 04/19/16 at 02:27; Stop 04/22/16 at 11:49; Status DC IV Flush (NS Flush) 2 ml UNSCH PRN IV FLUSH FLUSH AFTER USING IV ACCESS; Start 04/19/16 at 02:30; Stop 04/19/16 at 03:13; Status DC IV Flush (NS Flush) 2 ml BID IV FLUSH ; Start 04/19/16 at 09:00; Stop 04/19/16 at 09:00; Status DC Acetaminophen (Tylenol) 650 mg Q6H PRN PO PAIN 1-5 AND/OR FEVER >101F; Start at 02:30 Morphine Sulfate (Morphine Inj) 2 mg Q2H PRN IV PAIN SCALE 6 TO 10; Start 04/19 at 02:30; Stop 04/19/16 at 09:59; Status DC Famotidine (Pepcid Inj) 20 mg Q12HR IV PUSH ; Start 04/19/16 at 09:00; Stop at 09:00; Status DC Lorazepam (Ativan Inj) 2 mg Q4H PRN IV Agitation/Sedation; Start 04/19/16 at 02 :30; Stop 04/19/16 at 09:59; Status DC Ondansetron HCl (Zofran Inj) 4 mg Q6H PRN IV NAUSEA OR VOMITING; Start at 02:30 Metoclopramide HCl (Reglan Inj) 10 mg Q6H PRN IV NAUSEA OR VOMITING; Start at 02:30 Docusate Sodium (Colace) 100 mg BID PO Last administered on 04/24/16 08:17; Start 04/19/16 at 09:00 Zolpidem Tartrate (Ambien) 5 mg HS PRN PO INSOMNIA; Start 04/19/16 at 02:30; Stop 04/19/16 at 09:59; Status DC Albuterol/ Ipratropium (Duoneb Neb) 1 ampule Q2HR NEB PRN INH WHEEZING; Start 04/19/16 at 02:30 Heparin Sodium (Porcine) (Heparin Inj) 5,000 units Q8H SQ ; Start 04/19/16 at 06 :00; Stop 04/19/16 at 06:00; Status DC Miscellaneous Information 1 Q361D XX ; Start 04/19/16 at 02:30 Chlorhexidine Gluconate (Chlorhexidine 2% Cloth) Taper DAILY@04 TOP Last administered on 04/21/16 04:00; Start 04/19/16 at 04:00; Stop 04/15/17 at 03:59 Chlorhexidine Gluconate (Chlorhexidine 2% Cloth) 3 pack UNSCH PRN TOP HYGIENIC CARE; Start 04/19/16 at 02:30 IV Flush (NS Flush) 2 ml UNSCH PRN IV FLUSH FLUSH AFTER USING IV ACCESS; Start 04/19/16 at 02:30 IV Flush 2 ml 2 ml BID IV FLUSH Last administered on 04/24/16 08:18; Start at 09:00 Vancomycin HCl 1000 mg/Sodium Chloride 250 ml @ 250 mls/hr ONCE ONCE IV Last administered on 04/19/16 04:53; Start 04/19/16 at 03:00; Stop 04/19/16 at 03:59 ; Status DC Pharmacy Profile Note 0 ml @ 0 mls/hr UNSCH XX ; Start 04/19/16 at 02:30; Stop 04/21/16 at 12:30; Status DC Piperacillin Sod/ Tazobactam Sod (Zosyn 4.5 Gm Premix) 100 ml @ 200 mls/hr Q6H IV ; Start 04/19/16 at 02:30; Status Cancel Dextrose (D50w (Vial) Inj) 25 ml UNSCH PRN IV PUSH HYPOGLYCEMIA-SEE COMMENTS Last administered on 04/20/16 21:19; Start 04/19/16 at 03:00 Glucagon (Glucagon Inj) 1 mg UNSCH PRN OTHER HYPOGLYCEMIA-SEE COMMENTS; Start 04/19/16 at 03:00; Stop 04/19/16 at 09:59; Status DC Insulin Human Regular (NovoLIN R SUPPLEMENTAL SCALE) 1 ACHS SLIDING SCALE SQ Last administered on 04/24/16 10:24; Start 04/19/16 at 07:00 Pantoprazole Sodium 40 mg 40 mg Q12H IV PUSH ; Start 04/19/16 at 03:00; Stop at 03:12; Status DC Piperacillin Sod/ Tazobactam Sod 50 ml @ 100 mls/hr Q6H IV Last administered on 04/21/16 09:34; Start 04/19/16 at 03:00; Stop 04/21/16 at 12:33; Status DC Vancomycin HCl/ Sodium Chloride (Vancomycin Inj/ NS 250 ml Inj) 250 ml @ 250 mls/hr Q24H IV Last administered on 04/21/16 05:52; Start 04/20/16 at 05:00; Stop 04/21/16 at 12:35; Status DC Miscellaneous Information SPECIFIC LAB TO BE DRAWN:VANCOMYCIN TROUGH DATE TO... ONCE ONCE XX ; Start 04/22/16 at 04:45; Stop 04/22/16 at 04:46; Status Cancel Propofol (Diprivan 1000 Mg/100ml Inj) 100 ml @ As Directed STK-MED ONCE .ROUTE ; Start 04/19/16 at 10:23; Stop 04/19/16 at 10:24; Status DC Potassium Phos/ Sodium Phos (K-Phos Neutral) 250 mg Q8HR PO Last administered on 04/22/16 05:40; Start 04/20/16 at 09:30; Stop 04/22/16 at 11:47; Status DC Enalaprilat (Vasotec Inj) 1.25 mg Q8H PRN IV PUSH SBP> 180 OR DBP > 110. Last administered on 04/23/16 05:23; Start 04/20/16 at 09:30 Donepezil HCl (Aricept) 5 mg HS PO Last administered on 04/23/16 22:43; Start 04/20/16 at 21:00 Patient Own Medication PT OWN MED: NAMENDA... DAILY PO ; Start 04/21/16 at 09:00 ; Status Hold Alprazolam (Xanax) 0.25 mg Q6H PRN PO ANXIETY Last administered on 04/23/16 17: 09; Start 04/20/16 at 17:45 Haloperidol Lactate (Haldol Inj) 2 mg Q8H PRN IM AGITATION AND/OR HALLUCINATION Last administered on 04/22/16 14:22; Start 04/21/16 at 12:30 Levofloxacin (Levaquin) 500 mg DAILY PO Last administered on 04/24/16 08:17; Start 04/22/16 at 09:00 Pantoprazole Sodium 40 mg 40 mg DAILY PO Last administered on 04/24/16 08:17; Start 04/22/16 at 11:45 Sodium Chloride (NS 1000 ml Inj) 1,000 ml @ 760 mls/hr Q1H19M ONCE IV ; Start 04/23/16 at 02:27; Stop 04/23/16 at 03:45; Status DC A/P Assessment and Plan A/P SIRS - Unclear source - Cultures negative - continue levaquin Hypotension-has resolved - IV fluids resuscitation Anemia - Recent history of questionable GI bleed - continue protonix - Transfused 2 units of PRBC and now H/H stable. - will monitor H/H Dementia -resumed home meds - Supportive care Diabetes - Insulin sliding scale Hypothyroidism - Synthroid DVT GI prophylaxis - Protonix - Teds SCDs - No chemical DVT prophylaxis due to possible GI bleed consulted PT/ST. palliative care consult appreciated. DNR status. Discharge Planning previously d/w palliative care; possible dc to hospice pending the family decision. Massiel Ferrell MD Apr 24, 2016 11:40
[2016-04-24 12:27] VITALS: BP 114/62; PULSE 103; RESP 20; TEMP 95.7; O2SAT 100
[2016-04-24] MEDS: ALPRAZolam 0.25 MG TAB PO PRN ×2 (15:21→20:22)
[2016-04-24 16:12] VITALS: BP 115/65; PULSE 102; RESP 18; TEMP 95.7; O2SAT 100
[2016-04-24 20:15] VITALS: BP 120/70; PULSE 102; RESP 20; TEMP 95.9; O2SAT 98
[2016-04-24] MEDS: DONEPEZIL HCL 5 MG TAB PO SCH (20:18)
[2016-04-25] VITALS: BP 157/60; PULSE 76; RESP 18; TEMP 96.2; O2SAT 94
[2016-04-25 04:00] VITALS: BP 145/65; PULSE 73; RESP 18; TEMP 96.2; O2SAT 93
[2016-04-25] MEDS: CHLORHEXIDINE GLUCONATE 2 % 1 PACK (2 CLOTHS) TOP SCH (04:00)
[2016-04-25] MEDS: INSULIN NovoLIN REGULAR SUPPLEMENTAL SCALE SQ SCH ×4 (06:33→20:06)
[2016-04-25 08:29] VITALS: BP 132/62; PULSE 68; RESP 18; TEMP 96.4; O2SAT 94
[2016-04-25] MEDS: LEVOFLOXACIN 500 MG TAB PO SCH (09:13)
[2016-04-25] MEDS: DOCUSATE SODIUM 100 MG CAP PO SCH ×2 (09:13→20:02)
[2016-04-25] MEDS: PANTOPRAZOLE SOD 40 MG DELAYED RELEASE TAB PO SCH (09:13)
[2016-04-25] MEDS: SODIUM CHLORIDE 0.9% FLUSH 5 ML FLUSH IV FLUSH SCH ×2 (09:14→21:00)
[2016-04-25] MEDS: ALPRAZolam 0.25 MG TAB PO PRN ×2 (09:37→15:49)
--- NOTE | 2016-04-25 11:50 | HHI.PR ---
Subjective Remarks in no acute distress. at times agitated. d/w the RN. Objective Vitals Vital Signs Date Time Temp Pulse Resp B/P Pulse Ox O2 Delivery O2 Flow Rate FiO2 04/25/16 08:29 96.4 68 18 132/62 94 04/25/16 08:05 Room Air 04/25/16 04:00 96.2 73 18 145/65 93 04/25/16 02:03 Room Air 04/25/16 00:00 96.2 76 18 157/60 94 04/24/16 20:15 95.9 102 20 120/70 98 04/24/16 16:12 95.7 102 18 115/65 100 04/24/16 12:27 95.7 103 20 114/62 100 I/O 04/24/16 04/24/16 04/24/16 04/25/16 04/25/16 04/25/16 07:00 15:00 23:00 07:00 15:00 23:00 Intake Total 480 ml Output Total 1400 ml 125 ml 200 ml 200 ml Balance -1400 ml 355 ml -200 ml -200 ml Intake Oral 480 ml Output Urine Total 1400 ml 125 ml 200 ml 200 ml Result Diagram: 04/21/16 0429 Imaging Last Impressions Chest X-Ray 04/19/16 0045 Signed Impressions: Service Date/Time: Tuesday, April 19, 2016 01:03 - CONCLUSION: 1. Minimal basilar scarring or subsegmental atelectasis. Improved bilateral airspace disease compared with April 05. Pablo Napier MD Head CT 04/19/16 0000 Signed Impressions: Service Date/Time: Tuesday, April 19, 2016 01:45 - CONCLUSION: 1. Stable exam since 2016. Remote left occipital infarct. Chronic white matter changes and cortical volume loss. Pablo Napier MD Objective Remarks GENERAL: This is a well-nourished, well-developed patient, in no apparent distress. CARDIOVASCULAR: Regular rate and regular rhythm without murmurs, gallops, or rubs. RESPIRATORY: Clear to auscultation. Breath sounds equal bilaterally. No wheezes , rales, or rhonchi. GASTROINTESTINAL: Abdomen soft, non-tender, nondistended. Normal, active bowel sounds MUSCULOSKELETAL: Extremities without clubbing, cyanosis, or edema. NEURO: Awake but confused Procedures none Medications and IVs Current Medications Sodium Chloride 1,000 ml @ 1,000 mls/hr Q1H ONCE IV Last administered on 01:12; Start 04/19/16 at 00:45; Stop 04/19/16 at 01:44; Status DC Sodium Chloride 800 ml @ 1,000 mls/hr Q48M ONCE IV Last administered on 01:12; Start 04/19/16 at 00:45; Stop 04/19/16 at 01:32; Status DC Pantoprazole Sodium 80 mg/ Sodium Chloride 35 ml @ 420 mls/hr ONCE ONCE IV Last administered on 04/19/16 02:56; Start 04/19/16 at 02:15; Stop 04/19/16 at 02:19; Status DC Pantoprazole Sodium 80 mg/ Sodium Chloride 100 ml @ 10 mls/hr Q10H IV Last administered on 04/20/16 16:55; Start 04/19/16 at 02:15; Stop 04/21/16 at 00:04; Status DC Sodium Chloride 250 ml @ 15 mls/hr ONCE ONCE IV Last administered on 03:05; Start 04/19/16 at 02:15; Stop 04/19/16 at 18:54; Status DC Sodium Chloride (NS 1000 ml Inj) 1,000 ml @ 75 mls/hr [id number] IV Last administered on 04/22/16 04:51; Start 04/19/16 at 02:27; Stop 04/22/16 at 11:49; Status DC IV Flush (NS Flush) 2 ml UNSCH PRN IV FLUSH FLUSH AFTER USING IV ACCESS; Start 04/19/16 at 02:30; Stop 04/19/16 at 03:13; Status DC IV Flush (NS Flush) 2 ml BID IV FLUSH ; Start 04/19/16 at 09:00; Stop 04/19/16 at 09:00; Status DC Acetaminophen (Tylenol) 650 mg Q6H PRN PO PAIN 1-5 AND/OR FEVER >101F; Start at 02:30 Morphine Sulfate (Morphine Inj) 2 mg Q2H PRN IV PAIN SCALE 6 TO 10; Start 04/19 at 02:30; Stop 04/19/16 at 09:59; Status DC Famotidine (Pepcid Inj) 20 mg Q12HR IV PUSH ; Start 04/19/16 at 09:00; Stop at 09:00; Status DC Lorazepam (Ativan Inj) 2 mg Q4H PRN IV Agitation/Sedation; Start 04/19/16 at 02 :30; Stop 04/19/16 at 09:59; Status DC Ondansetron HCl (Zofran Inj) 4 mg Q6H PRN IV NAUSEA OR VOMITING; Start at 02:30 Metoclopramide HCl (Reglan Inj) 10 mg Q6H PRN IV NAUSEA OR VOMITING; Start at 02:30 Docusate Sodium (Colace) 100 mg BID PO Last administered on 04/25/16 09:13; Start 04/19/16 at 09:00 Zolpidem Tartrate (Ambien) 5 mg HS PRN PO INSOMNIA; Start 04/19/16 at 02:30; Stop 04/19/16 at 09:59; Status DC Albuterol/ Ipratropium (Duoneb Neb) 1 ampule Q2HR NEB PRN INH WHEEZING; Start 04/19/16 at 02:30 Heparin Sodium (Porcine) (Heparin Inj) 5,000 units Q8H SQ ; Start 04/19/16 at 06 :00; Stop 04/19/16 at 06:00; Status DC Miscellaneous Information 1 Q361D XX ; Start 04/19/16 at 02:30 Chlorhexidine Gluconate (Chlorhexidine 2% Cloth) Taper DAILY@04 TOP Last administered on 04/21/16 04:00; Start 04/19/16 at 04:00; Stop 04/15/17 at 03:59 Chlorhexidine Gluconate (Chlorhexidine 2% Cloth) 3 pack UNSCH PRN TOP HYGIENIC CARE; Start 04/19/16 at 02:30 IV Flush (NS Flush) 2 ml UNSCH PRN IV FLUSH FLUSH AFTER USING IV ACCESS; Start 04/19/16 at 02:30 IV Flush 2 ml 2 ml BID IV FLUSH Last administered on 04/25/16 09:14; Start at 09:00 Vancomycin HCl 1000 mg/Sodium Chloride 250 ml @ 250 mls/hr ONCE ONCE IV Last administered on 04/19/16 04:53; Start 04/19/16 at 03:00; Stop 04/19/16 at 03:59 ; Status DC Pharmacy Profile Note 0 ml @ 0 mls/hr UNSCH XX ; Start 04/19/16 at 02:30; Stop 04/21/16 at 12:30; Status DC Piperacillin Sod/ Tazobactam Sod (Zosyn 4.5 Gm Premix) 100 ml @ 200 mls/hr Q6H IV ; Start 04/19/16 at 02:30; Status Cancel Dextrose (D50w (Vial) Inj) 25 ml UNSCH PRN IV PUSH HYPOGLYCEMIA-SEE COMMENTS Last administered on 04/20/16 21:19; Start 04/19/16 at 03:00 Glucagon (Glucagon Inj) 1 mg UNSCH PRN OTHER HYPOGLYCEMIA-SEE COMMENTS; Start 04/19/16 at 03:00; Stop 04/19/16 at 09:59; Status DC Insulin Human Regular (NovoLIN R SUPPLEMENTAL SCALE) 1 ACHS SLIDING SCALE SQ Last administered on 04/25/16 06:33; Start 04/19/16 at 07:00 Pantoprazole Sodium 40 mg 40 mg Q12H IV PUSH ; Start 04/19/16 at 03:00; Stop at 03:12; Status DC Piperacillin Sod/ Tazobactam Sod 50 ml @ 100 mls/hr Q6H IV Last administered on 04/21/16 09:34; Start 04/19/16 at 03:00; Stop 04/21/16 at 12:33; Status DC Vancomycin HCl/ Sodium Chloride (Vancomycin Inj/ NS 250 ml Inj) 250 ml @ 250 mls/hr Q24H IV Last administered on 04/21/16 05:52; Start 04/20/16 at 05:00; Stop 04/21/16 at 12:35; Status DC Miscellaneous Information SPECIFIC LAB TO BE DRAWN:VANCOMYCIN TROUGH DATE TO... ONCE ONCE XX ; Start 04/22/16 at 04:45; Stop 04/22/16 at 04:46; Status Cancel Propofol (Diprivan 1000 Mg/100ml Inj) 100 ml @ As Directed STK-MED ONCE .ROUTE ; Start 04/19/16 at 10:23; Stop 04/19/16 at 10:24; Status DC Potassium Phos/ Sodium Phos (K-Phos Neutral) 250 mg Q8HR PO Last administered on 04/22/16 05:40; Start 04/20/16 at 09:30; Stop 04/22/16 at 11:47; Status DC Enalaprilat (Vasotec Inj) 1.25 mg Q8H PRN IV PUSH SBP> 180 OR DBP > 110. Last administered on 04/23/16 05:23; Start 04/20/16 at 09:30 Donepezil HCl (Aricept) 5 mg HS PO Last administered on 04/24/16 20:18; Start 04/20/16 at 21:00 Patient Own Medication PT OWN MED: NAMENDA... DAILY PO ; Start 04/21/16 at 09:00 ; Status Hold Alprazolam (Xanax) 0.25 mg Q6H PRN PO ANXIETY Last administered on 04/25/16 09: 37; Start 04/20/16 at 17:45 Haloperidol Lactate (Haldol Inj) 2 mg Q8H PRN IM AGITATION AND/OR HALLUCINATION Last administered on 04/22/16 14:22; Start 04/21/16 at 12:30 Levofloxacin (Levaquin) 500 mg DAILY PO Last administered on 04/25/16 09:13; Start 04/22/16 at 09:00 Pantoprazole Sodium 40 mg 40 mg DAILY PO Last administered on 04/25/16 09:13; Start 04/22/16 at 11:45 Sodium Chloride (NS 1000 ml Inj) 1,000 ml @ 760 mls/hr Q1H19M ONCE IV ; Start 04/23/16 at 02:27; Stop 04/23/16 at 03:45; Status DC A/P Assessment and Plan A/P SIRS - Unclear source - Cultures negative - stop Abx Hypotension-has resolved - IV fluids resuscitation Anemia - Recent history of questionable GI bleed - continue protonix - Transfused 2 units of PRBC and now H/H stable. - will monitor H/H periodically Dementia -resumed home meds - Supportive care Diabetes -resume long-acting insulin - continue Insulin sliding scale Hypothyroidism - Synthroid DVT GI prophylaxis - Protonix - Teds SCDs - No chemical DVT prophylaxis due to possible GI bleed consulted PT/ST. palliative care consult appreciated. DNR status. Discharge Planning previously d/w palliative care; possible dc to hospice pending the family decision. Massiel Ferrell MD Apr 25, 2016 11:50
[2016-04-25 12:32] VITALS: BP 122/59; PULSE 80; RESP 18; TEMP 97.1; O2SAT 96
--- NOTE | 2016-04-25 15:52 | HHI.HCPN ---
Left message for legal guardian/proxy Rosalba Jayashree with [place] [facility] to see if she had a chance to speak with sons regarding medical decisions and consideration of hospice services. Awaiting return call. SHI SCHULTZ Apr 25, 2016 15:52
[2016-04-25 16:18] VITALS: BP 130/60; PULSE 76; RESP 18; TEMP 97.4; O2SAT 94
[2016-04-25 20:00] VITALS: BP 120/61; PULSE 80; RESP 16; TEMP 95.5; O2SAT 98
[2016-04-25] MEDS: DONEPEZIL HCL 5 MG TAB PO SCH (20:02)
[2016-04-25] MEDS: INSULIN DETEMIR 100 UNITS/ML VIAL SQ SCH (20:05)
[2016-04-26] VITALS: BP 118/63; PULSE 91; RESP 22; TEMP 96.2; O2SAT 98
[2016-04-26] MEDS: ALPRAZolam 0.25 MG TAB PO PRN ×3 (00:19→17:13)
[2016-04-26] MEDS: CHLORHEXIDINE GLUCONATE 2 % 1 PACK (2 CLOTHS) TOP SCH (03:09)
[2016-04-26] MEDS: INSULIN NovoLIN REGULAR SUPPLEMENTAL SCALE SQ SCH ×4 (05:53→21:00)
[2016-04-26 08:12] VITALS: BP 127/84; PULSE 103; RESP 20; TEMP 94.5; O2SAT 92
--- NOTE | 2016-04-26 08:43 | HHI.PR ---
Subjective Remarks Follow-up visit DM, anemia, dementia. Patient seen today. Expressive aphasia, confusion but very pleasant. As per staff no acute issues, needs assistance with ADLs. Denies any pain or discomfort. Objective Vitals Vital Signs Date Time Temp Pulse Resp B/P Pulse Ox O2 Delivery O2 Flow Rate FiO2 04/26/16 08:12 94.5 103 20 127/84 92 04/26/16 00:00 96.2 91 22 118/63 98 04/25/16 20:00 Room Air 04/25/16 20:00 95.5 80 16 120/61 98 04/25/16 16:18 97.4 76 18 130/60 94 04/25/16 12:32 97.1 80 18 122/59 96 I/O 04/25/16 04/25/16 04/25/16 04/26/16 04/26/16 04/26/16 07:00 15:00 23:00 07:00 15:00 23:00 Intake Total 600 ml Output Total 200 ml 550 ml 200 ml Balance -200 ml 600 ml -550 ml -200 ml Intake Oral 600 ml IV Total 0 ml Output Urine Total 200 ml 550 ml 200 ml # Bowel Movements 1 0 Imaging Last Impressions Chest X-Ray 04/19/16 0045 Signed Impressions: Service Date/Time: Tuesday, April 19, 2016 01:03 - CONCLUSION: 1. Minimal basilar scarring or subsegmental atelectasis. Improved bilateral airspace disease compared with April 05. Pablo Napier MD Head CT 04/19/16 0000 Signed Impressions: Service Date/Time: Tuesday, April 19, 2016 01:45 - CONCLUSION: 1. Stable exam since 2016. Remote left occipital infarct. Chronic white matter changes and cortical volume loss. Pablo Napier MD Objective Remarks GENERAL: This is a thinly appearing, pleasant elderly patient, in no apparent distress. HEENT: Normocephalic. Pupils equal round and reactive. Nose without bleeding. Airway patent. NECK: Trachea midline. No JVD. Supple. CARDIOVASCULAR: Regular rate and rhythm without murmurs, gallops, or rubs. RESPIRATORY: Clear to auscultation. Breath sounds equal bilaterally. No wheezes , rales, or rhonchi. GASTROINTESTINAL: Abdomen soft, non-tender, nondistended. Bowel Sounds normoactive x4. MUSCULOSKELETAL: Extremities without clubbing, cyanosis, or edema. NEUROLOGICAL: Awake and alert. Confuse. Calm and cooperative. Appears to have expressive aphasia. Repeats words. Procedures none A/P Problem List: (1) Dementia ICD Code: F03.90 Status: Chronic (2) Altered mental status ICD Code: R41.82 Status: Acute (3) Anemia ICD Code: D64.9 Status: Acute Assessment and Plan Payient is an 89-year-old female with history of dementia, diabetes, brought in by ambulance from [facility] for evaluation of low blood pressure, elevated glucose, and agitation. The patient is nonverbal and does not provide any history. According to EMS her blood glucose is in the 300s and her blood pressure 70s over 40s. SIRS - Unclear source - Cultures negative - stop Abx Hypotension-has resolved - IV fluids resuscitation - BP trend within normal Anemia - Recent history of questionable GI bleed - continue protonix - Transfused 2 units of PRBC and now H/H stable. - will monitor H/H periodically. Latest H&H 11.2/34.1 no signs and symptoms of any bleeding. Dementia - resumed home meds - Supportive care - Assist with ADLs. consulted PT/ST. - Palliative care consult awaiting for sons to decide possible admission to hospice services Diabetes - resume long-acting insulin - continue Insulin sliding scale Hypothyroidism - Synthroid DVT GI prophylaxis - Protonix - Teds SCDs - No chemical DVT prophylaxis due to possible GI bleed DNR status. Discuss with patient, nursing Discharge Planning Possible DC to hospice services pending family decision. Attending Statement patient was seen today. looks comfortable with no distress. continue with current care. awaiting the family to make the final decision on hospice. rest of assessment and plan as noted above. Problem Qualifiers (1) Anemia: Qualified Code: D64.9 - Anemia, unspecified type Renetta Bee Apr 26, 2016 08:43 Massiel Ferrell MD Apr 26, 2016 11:28
[2016-04-26] MEDS: PANTOPRAZOLE SOD 40 MG DELAYED RELEASE TAB PO SCH (08:47)
[2016-04-26] MEDS: SODIUM CHLORIDE 0.9% FLUSH 5 ML FLUSH IV FLUSH SCH ×2 (08:47→22:24)
[2016-04-26] MEDS: DOCUSATE SODIUM 100 MG CAP PO SCH ×2 (08:47→22:24)
[2016-04-26 12:05] VITALS: BP 126/58; PULSE 84; RESP 20; TEMP 95.6
--- NOTE | 2016-04-26 12:23 | HHI.HCPN ---
Reason for visit a. To assist with evaluation and management of symptoms including: confusion , agitation. b. To assist medical decision maker(s) with: better understanding of current medical conditions; weighing benefits/burdens of medical treatment options; making medical treatment decisions. . Subjective/Interval History Patient is seen and examined. She is sitting in [place] in tess-chair. She is awake and confused. CABLE ENGINEER reports patient does well sitting in nurses station. No family present. Afebrile. Vital signs stable. No new labs or imaging. Discussed with case management. Left another message for Rosalba Blanc legal guardian/HCP with [place] [facility] on cell phone and office phone regarding decision for DC to SNF with or without hospice. . Family/friend interactions Left message for HCP. . Advance Directives Advance Directive Specifics Health Care Surrogate(s): Legal HCP through [place] [facility] is Rosalba Blanc. . Significant change in goals: NO CODE. Left message for HCP to clarify goals. . Objective Vital Signs Date Time Temp Pulse Resp B/P Pulse Ox O2 Delivery O2 Flow Rate FiO2 04/26/16 12:05 95.6 84 20 126/58 04/26/16 08:12 94.5 103 20 127/84 92 04/26/16 00:00 96.2 91 22 118/63 98 04/25/16 20:00 Room Air 04/25/16 20:00 95.5 80 16 120/61 98 04/25/16 16:18 97.4 76 18 130/60 94 04/25/16 12:32 97.1 80 18 122/59 96 Intake & Output 04/26/16 04/26/16 07:00 19:00 Output Total 750 ml Balance -750 ml Output Urine Total 750 ml # Bowel Movements 1 Physical Exam CONSTITUTIONAL/GENERAL: This is thin, elderly, frail female, agitated. TUBES/LINES/DRAINS: PIVs, Martins, bilateral soft wrist restraints, SCD's SKIN: No jaundice, rashes, or lesions. Ecchymoses on upper extremities. Skin tears noted bilateral upper extremities. Heal redness and on right 1st toe. Skin temperature appropriate. Not diaphoretic. CARDIOVASCULAR: Regular rate and rhythm without murmurs, gallops, or rubs. RESPIRATORY/CHEST: Symmetric, unlabored respirations. Diminished breath sounds bilaterally. GASTROINTESTINAL: Abdomen soft, non-tender, nondistended. No guarding. Bowel sounds present. GENITOURINARY: Without palpable bladder distension. Martins catheter in place. MUSCULOSKELETAL: Extremities without clubbing, cyanosis, or edema. No joint tenderness or effusion noted. No calf tenderness. No mottling or clubbing. NEUROLOGICAL: Awake and alert. Confused. Calms easily. Moves all extremities. PSYCHIATRIC: agitated, confused, restless. . Diagnostic Tests Imaging Last Impressions Chest X-Ray 04/19/16 0045 Signed Impressions: Service Date/Time: Tuesday, April 19, 2016 01:03 - CONCLUSION: 1. Minimal basilar scarring or subsegmental atelectasis. Improved bilateral airspace disease compared with April 05. Pablo Napier MD Head CT 04/19/16 0000 Signed Impressions: Service Date/Time: Tuesday, April 19, 2016 01:45 - CONCLUSION: 1. Stable exam since 2015. Remote left occipital infarct. Chronic white matter changes and cortical volume loss. Pablo Napier MD . Assessment and Plan Disease Oriented Problem List: (1) GI bleed (2) Anemia (3) Lactic acidosis Comment: Resolved (4) Dementia Symptom Scale: (1) Altered mental status 0-10 Scale: Unable to quantify (2) Agitation 0-10 Scale: Unable to quantify Pertinent Non-Medical Issues Psychosocial: . Has 2 or 3 sons, cannot determine with certainty given patient's confusion. Spiritual: Sabianist matt. Legal:Rosalba Jayashree has confirmed she is legal HCP through the [place] [facility]. I have also contacted [facility] to request legal guardian paperwork. Ethical issues impacting care: No known concerns at this time. . Important Contacts * Rosalba Blanc, legal guardian, [place] on [phone] (cell) or [phone] extension [phone] * Emmanuel Dueñas, son: [phone] lives in [place] * Benito Dueñas, son: [phone] lives in [facility] [place] [facility] * Tianna, [id number] Prognosis Patient is an 89-year-old female with multiple medical comorbidities including dementia, prior stroke, diabetes, hypothyroidism and hypertension she is admitted with recurrent G.I. bleed, anemia. This is her 6th acute care hospitalization since December 2015. She is long-term care resident. Her overall prognosis is poor. She appears hospice appropriate if goals are comfort oriented. . Code Status: No Code Plan * Rosalba Blanc has confirmed she is legal HCP through the [place] [facility]. * NO CODE [place] do not resuscitate order scanned into EMR and copy on chart dated 02/17/16. * 04/26/16 - Call placed to [facility] to request Rosalba Blanc on cell and office phone. Awaiting return call. * Discussed with nurse and caser. * SYMPTOMS: agitation: likely secondary to dementia, prior CVA, recent G.I. bleed, delirium. Has PRN Haldol available, none given. Has Xanax 0.25 mg every 6 hours PRN available, she has had 2 doses in the past 24 hours. Confusion: likely secondary to dementia, prior CVA, recent G.I. bleed, delirium. Appears to be improving since admission where she was reported to be nonverbal. I suspect she is near baseline at this time. Debility: long-term care resident of [facility]. No new medication recommendations at this time. * Palliative care will continue to follow throughout hospital course to assist with symptom management and further clarification of treatment goals. . Attestation To help prompt me to consider important information that might be impacting today's encounter and assessment, information from prior notes written by myself or my colleagues may have been "brought forward" into today's note. My signature on this note, however, is an attestation that I personally performed the exam, history, and/or decision-making noted today, and, unless otherwise indicated, the interactions with patient, family, and staff as well as the review of records all occurred today. I also attest that the listed assessment and stated plan reflect my best clinical judgment today based on the combination of historical information, prior notes, and today's exam/ interactions. When time spent is documented, it refers only to time spent today by the signer, or if indicated, combined time spent today by collaborating physician/nurse practitioner. SHI SCHULTZ Apr 26, 2016 12:23
[2016-04-26 16:05] VITALS: BP 140/65; PULSE 81; RESP 20; TEMP 96.3; O2SAT 95
[2016-04-26 20:00] VITALS: BP 135/65; PULSE 91; RESP 18; TEMP 97.3; O2SAT 99
[2016-04-26] MEDS: DONEPEZIL HCL 5 MG TAB PO SCH (22:24)
[2016-04-26] MEDS: INSULIN DETEMIR 100 UNITS/ML VIAL SQ SCH (22:25)
[2016-04-27] VITALS: BP 132/62; PULSE 86; RESP 18; TEMP 97; O2SAT 97
[2016-04-27] MEDS: ALPRAZolam 0.25 MG TAB PO PRN (00:04)
[2016-04-27] MEDS: CHLORHEXIDINE GLUCONATE 2 % 1 PACK (2 CLOTHS) TOP SCH (03:50)
[2016-04-27 04:00] VITALS: BP 132/63; PULSE 67; RESP 18; TEMP 97.3; O2SAT 98
[2016-04-27] MEDS: INSULIN NovoLIN REGULAR SUPPLEMENTAL SCALE SQ SCH ×4 (06:52→20:48)
[2016-04-27 08:16] VITALS: BP 131/62; PULSE 73; RESP 16; TEMP 95.2; O2SAT 97
[2016-04-27] MEDS: PANTOPRAZOLE SOD 40 MG DELAYED RELEASE TAB PO SCH (09:04)
[2016-04-27] MEDS: SODIUM CHLORIDE 0.9% FLUSH 5 ML FLUSH IV FLUSH SCH ×2 (09:04→20:49)
[2016-04-27] MEDS: DOCUSATE SODIUM 100 MG CAP PO SCH ×2 (09:04→20:45)
--- NOTE | 2016-04-27 09:51 | HHI.HCPN ---
Spoke with legal guardian through [place] [facility], she understands patient will likely be discharged int he coming day(s). She will follow up with son again today as he wanted a few days to ""think about" hospice. She will call me as soon as she has an answer, likely later today. 4pm: Call from son to get medical update. Reviewed history, reason for admission and overall prognosis. He verbalizes he and his brother wants his mother to be comfortable and dignified. Son verbalizes desire for comfort measures with hospice support. Message from Rosalba Blanc on my voicemail requesting comfort measures. Desires for DC to DNF with hospice services. Order written for hospice consult with instructions to call legal guardian for consents. SHI SCHULTZ Apr 27, 2016 09:51
--- NOTE | 2016-04-27 11:31 | HHI.PR ---
Subjective Remarks in no distress. anxious at times. no fever. Objective Vitals Vital Signs Date Time Temp Pulse Resp B/P Pulse Ox O2 Delivery O2 Flow Rate FiO2 04/27/16 08:16 95.2 73 16 131/62 97 04/27/16 04:00 97.3 67 18 132/63 98 04/27/16 02:00 Room Air 04/27/16 00:00 97.0 86 18 132/62 97 04/27/16 00:00 Room Air 04/26/16 21:50 Room Air 04/26/16 20:18 Room Air 04/26/16 20:00 97.3 91 18 135/65 99 04/26/16 16:05 96.3 81 20 140/65 95 04/26/16 12:05 95.6 84 20 126/58 I/O 04/26/16 04/26/16 04/26/16 04/27/16 04/27/16 04/27/16 07:00 15:00 23:00 07:00 15:00 23:00 Intake Total 480 ml 480 ml 120 ml Output Total 200 ml 800 ml 400 ml 800 ml Balance -200 ml -320 ml 80 ml -680 ml Intake Oral 480 ml 480 ml 120 ml Output Urine Total 200 ml 800 ml 400 ml 800 ml # Bowel Movements 0 0 2 Imaging Last Impressions Chest X-Ray 04/19/16 0045 Signed Impressions: Service Date/Time: Tuesday, April 19, 2016 01:03 - CONCLUSION: 1. Minimal basilar scarring or subsegmental atelectasis. Improved bilateral airspace disease compared with April 05. Pablo Napier MD Head CT 04/19/16 0000 Signed Impressions: Service Date/Time: Tuesday, April 19, 2016 01:45 - CONCLUSION: 1. Stable exam since 2016. Remote left occipital infarct. Chronic white matter changes and cortical volume loss. Pablo Napier MD Objective Remarks GENERAL: This is a well-nourished, well-developed patient, in no apparent distress. CARDIOVASCULAR: Regular rate and regular rhythm without murmurs, gallops, or rubs. RESPIRATORY: Clear to auscultation. Breath sounds equal bilaterally. No wheezes , rales, or rhonchi. GASTROINTESTINAL: Abdomen soft, non-tender, nondistended. Normal, active bowel sounds MUSCULOSKELETAL: Extremities without clubbing, cyanosis, or edema. NEURO: Awake but confused Procedures none Medications and IVs Current Medications Sodium Chloride 1,000 ml @ 1,000 mls/hr Q1H ONCE IV Last administered on 01:12; Start 04/19/16 at 00:45; Stop 04/19/16 at 01:44; Status DC Sodium Chloride 800 ml @ 1,000 mls/hr Q48M ONCE IV Last administered on 01:12; Start 04/19/16 at 00:45; Stop 04/19/16 at 01:32; Status DC Pantoprazole Sodium 80 mg/ Sodium Chloride 35 ml @ 420 mls/hr ONCE ONCE IV Last administered on 04/19/16 02:56; Start 04/19/16 at 02:15; Stop 04/19/16 at 02:19; Status DC Pantoprazole Sodium 80 mg/ Sodium Chloride 100 ml @ 10 mls/hr Q10H IV Last administered on 04/20/16 16:55; Start 04/19/16 at 02:15; Stop 04/21/16 at 00:04; Status DC Sodium Chloride 250 ml @ 15 mls/hr ONCE ONCE IV Last administered on 03:05; Start 04/19/16 at 02:15; Stop 04/19/16 at 18:54; Status DC Sodium Chloride (NS 1000 ml Inj) 1,000 ml @ 75 mls/hr [id number] IV Last administered on 04/22/16 04:51; Start 04/19/16 at 02:27; Stop 04/22/16 at 11:49; Status DC IV Flush (NS Flush) 2 ml UNSCH PRN IV FLUSH FLUSH AFTER USING IV ACCESS; Start 04/19/16 at 02:30; Stop 04/19/16 at 03:13; Status DC IV Flush (NS Flush) 2 ml BID IV FLUSH ; Start 04/19/16 at 09:00; Stop 04/19/16 at 09:00; Status DC Acetaminophen (Tylenol) 650 mg Q6H PRN PO PAIN 1-5 AND/OR FEVER >101F; Start at 02:30 Morphine Sulfate (Morphine Inj) 2 mg Q2H PRN IV PAIN SCALE 6 TO 10; Start 04/19 at 02:30; Stop 04/19/16 at 09:59; Status DC Famotidine (Pepcid Inj) 20 mg Q12HR IV PUSH ; Start 04/19/16 at 09:00; Stop at 09:00; Status DC Lorazepam (Ativan Inj) 2 mg Q4H PRN IV Agitation/Sedation; Start 04/19/16 at 02 :30; Stop 04/19/16 at 09:59; Status DC Ondansetron HCl (Zofran Inj) 4 mg Q6H PRN IV NAUSEA OR VOMITING; Start at 02:30 Metoclopramide HCl (Reglan Inj) 10 mg Q6H PRN IV NAUSEA OR VOMITING; Start at 02:30 Docusate Sodium (Colace) 100 mg BID PO Last administered on 04/27/16 09:04; Start 04/19/16 at 09:00 Zolpidem Tartrate (Ambien) 5 mg HS PRN PO INSOMNIA; Start 04/19/16 at 02:30; Stop 04/19/16 at 09:59; Status DC Albuterol/ Ipratropium (Duoneb Neb) 1 ampule Q2HR NEB PRN INH WHEEZING; Start 04/19/16 at 02:30 Heparin Sodium (Porcine) (Heparin Inj) 5,000 units Q8H SQ ; Start 04/19/16 at 06 :00; Stop 04/19/16 at 06:00; Status DC Miscellaneous Information 1 Q361D XX ; Start 04/19/16 at 02:30 Chlorhexidine Gluconate (Chlorhexidine 2% Cloth) Taper DAILY@04 TOP Last administered on 04/21/16 04:00; Start 04/19/16 at 04:00; Stop 04/15/17 at 03:59 Chlorhexidine Gluconate (Chlorhexidine 2% Cloth) 3 pack UNSCH PRN TOP HYGIENIC CARE; Start 04/19/16 at 02:30 IV Flush (NS Flush) 2 ml UNSCH PRN IV FLUSH FLUSH AFTER USING IV ACCESS; Start 04/19/16 at 02:30 IV Flush 2 ml 2 ml BID IV FLUSH Last administered on 04/27/16 09:04; Start at 09:00 Vancomycin HCl 1000 mg/Sodium Chloride 250 ml @ 250 mls/hr ONCE ONCE IV Last administered on 04/19/16 04:53; Start 04/19/16 at 03:00; Stop 04/19/16 at 03:59 ; Status DC Pharmacy Profile Note 0 ml @ 0 mls/hr UNSCH XX ; Start 04/19/16 at 02:30; Stop 04/21/16 at 12:30; Status DC Piperacillin Sod/ Tazobactam Sod (Zosyn 4.5 Gm Premix) 100 ml @ 200 mls/hr Q6H IV ; Start 04/19/16 at 02:30; Status Cancel Dextrose (D50w (Vial) Inj) 25 ml UNSCH PRN IV PUSH HYPOGLYCEMIA-SEE COMMENTS Last administered on 04/20/16 21:19; Start 04/19/16 at 03:00 Glucagon (Glucagon Inj) 1 mg UNSCH PRN OTHER HYPOGLYCEMIA-SEE COMMENTS; Start 04/19/16 at 03:00; Stop 04/19/16 at 09:59; Status DC Insulin Human Regular (NovoLIN R SUPPLEMENTAL SCALE) 1 ACHS SLIDING SCALE SQ Last administered on 04/26/16 16:00; Start 04/19/16 at 07:00 Pantoprazole Sodium 40 mg 40 mg Q12H IV PUSH ; Start 04/19/16 at 03:00; Stop at 03:12; Status DC Piperacillin Sod/ Tazobactam Sod 50 ml @ 100 mls/hr Q6H IV Last administered on 04/21/16 09:34; Start 04/19/16 at 03:00; Stop 04/21/16 at 12:33; Status DC Vancomycin HCl/ Sodium Chloride (Vancomycin Inj/ NS 250 ml Inj) 250 ml @ 250 mls/hr Q24H IV Last administered on 04/21/16 05:52; Start 04/20/16 at 05:00; Stop 04/21/16 at 12:35; Status DC Miscellaneous Information SPECIFIC LAB TO BE DRAWN:VANCOMYCIN TROUGH DATE TO... ONCE ONCE XX ; Start 04/22/16 at 04:45; Stop 04/22/16 at 04:46; Status Cancel Propofol (Diprivan 1000 Mg/100ml Inj) 100 ml @ As Directed STK-MED ONCE .ROUTE ; Start 04/19/16 at 10:23; Stop 04/19/16 at 10:24; Status DC Potassium Phos/ Sodium Phos (K-Phos Neutral) 250 mg Q8HR PO Last administered on 04/22/16 05:40; Start 04/20/16 at 09:30; Stop 04/22/16 at 11:47; Status DC Enalaprilat (Vasotec Inj) 1.25 mg Q8H PRN IV PUSH SBP> 180 OR DBP > 110. Last administered on 04/23/16 05:23; Start 04/20/16 at 09:30 Donepezil HCl (Aricept) 5 mg HS PO Last administered on 04/26/16 22:24; Start 04/20/16 at 21:00 Patient Own Medication PT OWN MED: NAMENDA... DAILY PO ; Start 04/21/16 at 09:00 ; Status Hold Alprazolam (Xanax) 0.25 mg Q6H PRN PO ANXIETY Last administered on 04/27/16 00: 04; Start 04/20/16 at 17:45 Haloperidol Lactate (Haldol Inj) 2 mg Q8H PRN IM AGITATION AND/OR HALLUCINATION Last administered on 04/22/16 14:22; Start 04/21/16 at 12:30 Levofloxacin (Levaquin) 500 mg DAILY PO Last administered on 04/25/16 09:13; Start 04/22/16 at 09:00; Stop 04/25/16 at 11:50; Status DC Pantoprazole Sodium 40 mg 40 mg DAILY PO Last administered on 04/27/16 09:04; Start 04/22/16 at 11:45 Sodium Chloride (NS 1000 ml Inj) 1,000 ml @ 760 mls/hr Q1H19M ONCE IV ; Start 04/23/16 at 02:27; Stop 04/23/16 at 03:45; Status DC Insulin Detemir (Levemir Inj) 5 units HS SQ Last administered on 04/26/16 22:25 ; Start 04/25/16 at 21:00 A/P Assessment and Plan Payient is an 89-year-old female with history of dementia, diabetes, brought in by ambulance from retirement for evaluation of low blood pressure, elevated glucose, and agitation. The patient is nonverbal and does not provide any history. According to EMS her blood glucose is in the 300s and her blood pressure 70s over 40s. SIRS-resolved. - Unclear source - Cultures negative - stop Abx Hypotension-has resolved - IV fluids resuscitation - BP trend within normal Anemia - Recent history of questionable GI bleed - continue protonix - Transfused 2 units of PRBC and now H/H stable. - will monitor H/H periodically. Latest H&H 11.2/34.1 no signs and symptoms of any bleeding. Dementia - resumed home meds - Supportive care - Assist with ADLs. consulted PT/ST. - Palliative care consult awaiting for sons to decide possible admission to hospice services Diabetes - resume long-acting insulin - continue Insulin sliding scale Hypothyroidism - Synthroid DVT GI prophylaxis - Protonix - Teds SCDs - No chemical DVT prophylaxis due to possible GI bleed DNR status. Discharge Planning previously d/w palliative care; possible dc to hospice or SNF later today or in am- pending the family decision. d/w case management. see med list. time spent 35 min. Massiel Ferrell MD Apr 27, 2016 11:31
[2016-04-27] MEDS ORDERED: LEVEMIR SQ (11:35)
[2016-04-27] MEDS ORDERED: ALPR.25 PO (11:35)
[2016-04-27] MEDS ORDERED: PANT40TA3 PO (11:35)
--- NOTE | 2016-04-27 11:38 | HHI.DS ---
Discharge Summary Admission Date Apr 19, 2016 at 02:25 Discharge Date: Apr 27, 2016 Admitting Diagnosis anemia, GI bleed, melena, hypotension, AMS (1) Dementia ICD Code: F03.90 Diagnosis: Principal (2) Altered mental status ICD Code: R41.82 Diagnosis: Principal (3) Anemia ICD Code: D64.9 Diagnosis: Principal Procedures none Brief History - From Admission 89-year-old female with history of dementia, diabetes, brought in by ambulance from [facility] for evaluation of low blood pressure, elevated glucose, and agitation. The patient is nonverbal and does not provide any history. According to EMS her blood glucose is in the 300s and her blood pressure 70s over 40s. Imaging Last Impressions Chest X-Ray 04/19/16 0045 Signed Impressions: Service Date/Time: Tuesday, April 19, 2016 01:03 - CONCLUSION: 1. Minimal basilar scarring or subsegmental atelectasis. Improved bilateral airspace disease compared with April 05. Pablo Napier MD Head CT 04/19/16 0000 Signed Impressions: Service Date/Time: Tuesday, April 19, 2016 01:45 - CONCLUSION: 1. Stable exam since 2016. Remote left occipital infarct. Chronic white matter changes and cortical volume loss. Pablo Napier MD PE at Discharge GENERAL: This is a thinly appearing, pleasant elderly patient, in no apparent distress. HEENT: Normocephalic. Pupils equal round and reactive. Nose without bleeding. Airway patent. NECK: Trachea midline. No JVD. Supple. CARDIOVASCULAR: Regular rate and rhythm without murmurs, gallops, or rubs. RESPIRATORY: Clear to auscultation. Breath sounds equal bilaterally. No wheezes , rales, or rhonchi. GASTROINTESTINAL: Abdomen soft, non-tender, nondistended. Bowel Sounds normoactive x4. MUSCULOSKELETAL: Extremities without clubbing, cyanosis, or edema. NEUROLOGICAL: Awake and alert. Confuse. Calm and cooperative. Appears to have expressive aphasia. Repeats words. Hospital Course SIRS-resolved. - Unclear source - Cultures negative - stop Abx Hypotension-has resolved - IV fluids resuscitation - BP trend within normal Anemia - Recent history of questionable GI bleed - continue protonix - Transfused 2 units of PRBC and now H/H stable. - will monitor H/H periodically. Latest H&H .34.1 no signs and symptoms of any bleeding. Dementia - resumed home meds - Supportive care - Assist with ADLs. consulted PT/ST. - Palliative care consult awaiting for sons to decide possible admission to hospice services Diabetes - resume long-acting insulin - continue Insulin sliding scale Hypothyroidism - Synthroid DVT GI prophylaxis - Protonix - Teds SCDs - No chemical DVT prophylaxis due to possible GI bleed DNR status. Pt Condition on Discharge: Fair Discharge Disposition: Discharge to SNF Discharge Time: > 30 minutes Discharge Instructions DIET: Follow Instructions for: Heart Healthy Diet, Diabetic Diet Speech Therapy-Diet Recommends: Pureed, [place] Thickened Liquids Activities you can perform: Regular-No Restrictions Follow up Referrals: PCP Follow-up New Medications: Insulin Detemir Inj (Levemir Inj) 1,000 unit/ 10 ML Vial 5 UNITS SQ HS diabetes Days 30 INJECTION Pantoprazole (Pantoprazole) 40 Mg Tab 40 MG PO DAILY ppi Days 30 Ref 0 TAB Continued Medications: Acetaminophen (Tylenol) 325 Mg Tab 650 MG PO Q4H PRN PAIN 1-10 AND/OR FEVER >101F Ref 0 TAB Alprazolam (Xanax) 0.25 Mg Tab 0.25 MG PO Q6H PRN ANXIETY #20 Ref 0 TAB (This prescription has been renewed) Cholestyramine (Cholestyramine) 4 Gm/Pkt Powd 4 GM PO DAILY@1200 health #30 Ref 0 PACK Citalopram (Celexa) 20 Mg Tab 20 MG PO DAILY health #30 Ref 0 TAB Dextromethorphan HBr-Quinidine (Nuedexta 20-10 mg) 1 Cap Cap 1 CAP PO BID Pseudobulbar Affect #60 Ref 0 CAP Diphenoxylate-Atropine (Lomotil) 2.5-0.025 Mg Tab 1 TAB PO DAILY PRN LOOSE STOOL Ref 0 TAB Donepezil (Aricept) 5 Mg Tab 5 MG PO HS health #30 Ref 0 TAB Ferrous Sulfate (Ferrousul) 325 Mg Tab 325 MG PO TID Anemia Insulin Aspart Inj (Novolog Inj) 1,000 Unit/10 Ml Vial 0 SQ ACHS Sliding Scale as directed: if <70 call MD, 151-200=2 units, 201-250=4 units, 251-300=6 units, 301-350=8 units, 351-400=10 units, >400=12 units and call Blood Sugar Management #10 Ref 0 ML Lactobacillus Acidophilus (Probiotic) 1 Cap Cap 1 CAP PO BID Diarrhea #90 Ref 0 CAP Levothyroxine (Synthroid) 200 Mcg Tab 200 MCG PO DAILY@0600 health #30 Ref 0 TAB Loperamide (Imodium A-D) 2 Mg Cap 2 MG PO Q3HR Give 2x2mg at onset of diarrhea and then 1 with each loose stool ( max 8 caps/24hrs. Notify MD if any blood in stool or diarrhea persists more than 4 days PRN DIARRHEA Ref 0 CAP Memantine Er (Namenda Xr) 14 Mg Caper 14 MG PO DAILY Alzheimer Disease #30 Ref 0 CAP Ondansetron (Zofran) 4 Mg Tab 4 MG PO Q6HR PRN NAUSEA OR VOMITING Ref 0 TAB Ranitidine HCl (Sm Acid Cable Braider) 75 Mg Tab 75 MG PO BID Reflux Tizanidine (Zanaflex) 4 Mg Tab 4 MG PO HS health #30 Ref 0 TAB Trazodone (Trazodone) 50 Mg Tab 50 MG PO HS PRN INSOMNIA #30 Ref 0 TAB Discontinued Medications: Clopidogrel (Plavix) 75 Mg Tab 75 MG PO DAILY health #30 Ref 0 TAB Diltiazem CD 24 HR (Cardizem CD 24 HR) 240 Mg Caper 240 MG PO DAILY Start from April 08 morning tachyarrhythmia #30 Ref 0 CAP Gabapentin (Gabapentin) 300 Mg Cap 300 MG PO TID Nueropathy #90 Ref 0 CAP Glipizide (Glipizide) 10 Mg Tab 10 MG PO DAILYAC health #30 Ref 0 TAB Hydrocortisone-Pramoxine Rectal (Proctofoam Hc Rectal) 1-1% Foam 1 APPLIC RECTAL Q12HR health #60 Ref 0 FOAM Insulin Detemir Inj (Levemir Inj) 1,000 unit/ 10 ML Vial 18 UNITS SQ DAILY health #1 Ref 0 INJECTION Levofloxacin (Levofloxacin) 500 Mg Tab 500 MG PO DAILY Infection #14 Ref 1 TAB Lisinopril (Lisinopril) 10 Mg Tab 10 MG PO DAILY health #30 Ref 0 TAB Metformin (Metformin) 500 Mg Tab 500 MG PO BID With meals Blood Sugar Management #60 Ref 0 TAB Prednisone (Prednisone) 20 Mg Tab 20 MG PO BID inflammation #7 TAB Massiel Ferrell MD Apr 27, 2016 11:37
[2016-04-27 12:00] VITALS: BP 127/68; PULSE 86; RESP 20; TEMP 97.6; O2SAT 97
[2016-04-27 16:00] VITALS: BP 127/78; PULSE 95; RESP 19; TEMP 95.6; O2SAT 96
[2016-04-27] MEDS ORDERED: ACETAMINOPHEN/HYDROcodone 325 MG/5 MG TAB PO PRN (17:00)
[2016-04-27 20:00] VITALS: BP 105/58; PULSE 93; RESP 18; TEMP 97.2; O2SAT 94
[2016-04-27] MEDS: DONEPEZIL HCL 5 MG TAB PO SCH (20:45)
[2016-04-27] MEDS: INSULIN DETEMIR 100 UNITS/ML VIAL SQ SCH (20:46)
[2016-04-28] VITALS: BP 107/58; PULSE 86; RESP 18; TEMP 97.3; O2SAT 94
[2016-04-28] MEDS: ALPRAZolam 0.25 MG TAB PO PRN (01:34)
[2016-04-28] MEDS: CHLORHEXIDINE GLUCONATE 2 % 1 PACK (2 CLOTHS) TOP SCH (03:59)
[2016-04-28 04:00] VITALS: BP 138/63; PULSE 84; RESP 18; TEMP 97.3; O2SAT 96
[2016-04-28] MEDS: INSULIN NovoLIN REGULAR SUPPLEMENTAL SCALE SQ SCH ×2 (06:24→12:55)
[2016-04-28 08:40] VITALS: BP 108/56; RESP 19; TEMP 96.4
--- NOTE | 2016-04-28 08:46 | HHI.PR ---
Subjective Remarks sitting on the chair having her breakfast. looks comfortable. d/w the RN and no acute issues over night. Objective Vitals Vital Signs Date Time Temp Pulse Resp B/P Pulse Ox O2 Delivery O2 Flow Rate FiO2 04/28/16 04:00 97.3 84 18 138/63 96 04/28/16 00:00 97.3 86 18 107/58 94 04/27/16 20:00 Room Air 2.00 04/27/16 20:00 97.2 93 18 105/58 94 04/27/16 16:00 95.6 95 19 127/78 96 04/27/16 12:00 97.6 86 20 127/68 97 I/O 04/27/16 04/27/16 04/27/16 04/28/16 04/28/16 04/28/16 07:00 15:00 23:00 07:00 15:00 23:00 Intake Total 120 ml 240 ml 240 ml 120 ml Output Total 800 ml 700 ml 1 ml Balance -680 ml -460 ml 239 ml 120 ml Intake Oral 120 ml 240 ml 240 ml 120 ml Output Urine Total 800 ml 700 ml Stool Total 1 ml # Voids 1 1 # Bowel Movements 2 2 Imaging Last Impressions Chest X-Ray 04/19/16 0045 Signed Impressions: Service Date/Time: Tuesday, April 19, 2016 01:03 - CONCLUSION: 1. Minimal basilar scarring or subsegmental atelectasis. Improved bilateral airspace disease compared with April 05. Pablo Napier MD Head CT 04/19/16 0000 Signed Impressions: Service Date/Time: Tuesday, April 19, 2016 01:45 - CONCLUSION: 1. Stable exam since 2016. Remote left occipital infarct. Chronic white matter changes and cortical volume loss. Pablo Napier MD Objective Remarks GENERAL: This is a well-nourished, well-developed patient, in no apparent distress. CARDIOVASCULAR: Regular rate and regular rhythm without murmurs, gallops, or rubs. RESPIRATORY: Clear to auscultation. Breath sounds equal bilaterally. No wheezes , rales, or rhonchi. GASTROINTESTINAL: Abdomen soft, non-tender, nondistended. Normal, active bowel sounds MUSCULOSKELETAL: Extremities without clubbing, cyanosis, or edema. NEURO: Awake but confused Procedures none Medications and IVs Current Medications Sodium Chloride 1,000 ml @ 1,000 mls/hr Q1H ONCE IV Last administered on 01:12; Start 04/19/16 at 00:45; Stop 04/19/16 at 01:44; Status DC Sodium Chloride 800 ml @ 1,000 mls/hr Q48M ONCE IV Last administered on 01:12; Start 04/19/16 at 00:45; Stop 04/19/16 at 01:32; Status DC Pantoprazole Sodium 80 mg/ Sodium Chloride 35 ml @ 420 mls/hr ONCE ONCE IV Last administered on 04/19/16 02:56; Start 04/19/16 at 02:15; Stop 04/19/16 at 02:19; Status DC Pantoprazole Sodium 80 mg/ Sodium Chloride 100 ml @ 10 mls/hr Q10H IV Last administered on 04/20/16 16:55; Start 04/19/16 at 02:15; Stop 04/21/16 at 00:04; Status DC Sodium Chloride 250 ml @ 15 mls/hr ONCE ONCE IV Last administered on 03:05; Start 04/19/16 at 02:15; Stop 04/19/16 at 18:54; Status DC Sodium Chloride (NS 1000 ml Inj) 1,000 ml @ 75 mls/hr [id number] IV Last administered on 04/22/16 04:51; Start 04/19/16 at 02:27; Stop 04/22/16 at 11:49; Status DC IV Flush (NS Flush) 2 ml UNSCH PRN IV FLUSH FLUSH AFTER USING IV ACCESS; Start 04/19/16 at 02:30; Stop 04/19/16 at 03:13; Status DC IV Flush (NS Flush) 2 ml BID IV FLUSH ; Start 04/19/16 at 09:00; Stop 04/19/16 at 09:00; Status DC Acetaminophen (Tylenol) 650 mg Q6H PRN PO FEVER >101F; Start 04/19/16 at 02:30 Morphine Sulfate (Morphine Inj) 2 mg Q2H PRN IV PAIN SCALE 6 TO 10; Start 04/19 at 02:30; Stop 04/19/16 at 09:59; Status DC Famotidine (Pepcid Inj) 20 mg Q12HR IV PUSH ; Start 04/19/16 at 09:00; Stop at 09:00; Status DC Lorazepam (Ativan Inj) 2 mg Q4H PRN IV Agitation/Sedation; Start 04/19/16 at 02 :30; Stop 04/19/16 at 09:59; Status DC Ondansetron HCl (Zofran Inj) 4 mg Q6H PRN IV NAUSEA OR VOMITING; Start at 02:30 Metoclopramide HCl (Reglan Inj) 10 mg Q6H PRN IV NAUSEA OR VOMITING; Start at 02:30 Docusate Sodium (Colace) 100 mg BID PO Last administered on 04/27/16 20:45; Start 04/19/16 at 09:00 Zolpidem Tartrate (Ambien) 5 mg HS PRN PO INSOMNIA; Start 04/19/16 at 02:30; Stop 04/19/16 at 09:59; Status DC Albuterol/ Ipratropium (Duoneb Neb) 1 ampule Q2HR NEB PRN INH WHEEZING; Start 04/19/16 at 02:30 Heparin Sodium (Porcine) (Heparin Inj) 5,000 units Q8H SQ ; Start 04/19/16 at 06 :00; Stop 04/19/16 at 06:00; Status DC Miscellaneous Information 1 Q361D XX ; Start 04/19/16 at 02:30 Chlorhexidine Gluconate (Chlorhexidine 2% Cloth) Taper DAILY@04 TOP Last administered on 04/21/16 04:00; Start 04/19/16 at 04:00; Stop 04/15/17 at 03:59 Chlorhexidine Gluconate (Chlorhexidine 2% Cloth) 3 pack UNSCH PRN TOP HYGIENIC CARE; Start 04/19/16 at 02:30 IV Flush (NS Flush) 2 ml UNSCH PRN IV FLUSH FLUSH AFTER USING IV ACCESS; Start 04/19/16 at 02:30 IV Flush 2 ml 2 ml BID IV FLUSH Last administered on 04/27/16 20:49; Start at 09:00 Vancomycin HCl 1000 mg/Sodium Chloride 250 ml @ 250 mls/hr ONCE ONCE IV Last administered on 04/19/16 04:53; Start 04/19/16 at 03:00; Stop 04/19/16 at 03:59 ; Status DC Pharmacy Profile Note 0 ml @ 0 mls/hr UNSCH XX ; Start 04/19/16 at 02:30; Stop 04/21/16 at 12:30; Status DC Piperacillin Sod/ Tazobactam Sod (Zosyn 4.5 Gm Premix) 100 ml @ 200 mls/hr Q6H IV ; Start 04/19/16 at 02:30; Status Cancel Dextrose (D50w (Vial) Inj) 25 ml UNSCH PRN IV PUSH HYPOGLYCEMIA-SEE COMMENTS Last administered on 04/20/16 21:19; Start 04/19/16 at 03:00 Glucagon (Glucagon Inj) 1 mg UNSCH PRN OTHER HYPOGLYCEMIA-SEE COMMENTS; Start 04/19/16 at 03:00; Stop 04/19/16 at 09:59; Status DC Insulin Human Regular (NovoLIN R SUPPLEMENTAL SCALE) 1 ACHS SLIDING SCALE SQ Last administered on 04/28/16 06:24; Start 04/19/16 at 07:00 Pantoprazole Sodium 40 mg 40 mg Q12H IV PUSH ; Start 04/19/16 at 03:00; Stop at 03:12; Status DC Piperacillin Sod/ Tazobactam Sod 50 ml @ 100 mls/hr Q6H IV Last administered on 04/21/16 09:34; Start 04/19/16 at 03:00; Stop 04/21/16 at 12:33; Status DC Vancomycin HCl/ Sodium Chloride (Vancomycin Inj/ NS 250 ml Inj) 250 ml @ 250 mls/hr Q24H IV Last administered on 04/21/16 05:52; Start 04/20/16 at 05:00; Stop 04/21/16 at 12:35; Status DC Miscellaneous Information SPECIFIC LAB TO BE DRAWN:VANCOMYCIN TROUGH DATE TO... ONCE ONCE XX ; Start 04/22/16 at 04:45; Stop 04/22/16 at 04:46; Status Cancel Propofol (Diprivan 1000 Mg/100ml Inj) 100 ml @ As Directed STK-MED ONCE .ROUTE ; Start 04/19/16 at 10:23; Stop 04/19/16 at 10:24; Status DC Potassium Phos/ Sodium Phos (K-Phos Neutral) 250 mg Q8HR PO Last administered on 04/22/16 05:40; Start 04/20/16 at 09:30; Stop 04/22/16 at 11:47; Status DC Enalaprilat (Vasotec Inj) 1.25 mg Q8H PRN IV PUSH SBP> 180 OR DBP > 110. Last administered on 04/23/16 05:23; Start 04/20/16 at 09:30 Donepezil HCl (Aricept) 5 mg HS PO Last administered on 04/27/16 20:45; Start 04/20/16 at 21:00 Patient Own Medication PT OWN MED: NAMENDA... DAILY PO ; Start 04/21/16 at 09:00 ; Status Hold Alprazolam (Xanax) 0.25 mg Q6H PRN PO ANXIETY Last administered on 04/28/16 01: 34; Start 04/20/16 at 17:45 Haloperidol Lactate (Haldol Inj) 2 mg Q8H PRN IM AGITATION AND/OR HALLUCINATION Last administered on 04/22/16 14:22; Start 04/21/16 at 12:30 Levofloxacin (Levaquin) 500 mg DAILY PO Last administered on 04/25/16 09:13; Start 04/22/16 at 09:00; Stop 04/25/16 at 11:50; Status DC Pantoprazole Sodium 40 mg 40 mg DAILY PO Last administered on 04/27/16 09:04; Start 04/22/16 at 11:45 Sodium Chloride (NS 1000 ml Inj) 1,000 ml @ 760 mls/hr Q1H19M ONCE IV ; Start 04/23/16 at 02:27; Stop 04/23/16 at 03:45; Status DC Insulin Detemir (Levemir Inj) 5 units HS SQ Last administered on 04/27/16 20:46 ; Start 04/25/16 at 21:00 Acetaminophen/ Hydrocodone Bitart ([place] 5-325 Mg) 1 tab Q4H PRN PO PAIN SCALE 1-10; Start 04/27/16 at 17:00 A/P Assessment and Plan Payient is an 89-year-old female with history of dementia, diabetes, brought in by ambulance from [place] for evaluation of low blood pressure, elevated glucose, and agitation. The patient is nonverbal and does not provide any history. According to EMS her blood glucose is in the 300s and her blood pressure 70s over 40s. SIRS-resolved. Hypotension-has resolved Anemia - Recent history of questionable GI bleed - continue protonix - Transfused 2 units of PRBC and now H/H stable. -evaluated by GI; recommended conservative treatment. Dementia - resumed home meds - Supportive care - Assist with ADLs. consulted PT/ST. Diabetes - resumed long-acting insulin - continue Insulin sliding scale Hypothyroidism - Synthroid DVT GI prophylaxis - Protonix - Teds SCDs - No chemical DVT prophylaxis due to possible GI bleed DNR status. Discharge Planning likely dc to SNF later today- on hospice; pending the hospice discussion with the family today. d/w the case management. d/w the RN. time spent 35 min. Massiel Ferrell MD Apr 28, 2016 08:46
--- NOTE | 2016-04-28 08:48 | HHI.DCPOC ---
Discharge Care Plan Diagnosis: (1) Dementia (2) GI bleed Your Health Problems Are: Anxiety Difficulty with ADL Bleeding Tendency Goals to Promote Your Health * To prevent worsening of your condition and complications * To maintain your health at the optimal level Directions to Meet Your Goals Take your medications as prescribed Follow your dietary instruction Follow activity as directed Keep your appointments as scheduled Take your immunizations and boosters as scheduled If your symptoms worsen call your PCP, if no PCP go to Urgent Care Center or Emergency Room Smoking is Dangerous to Your Health. Avoid second hand smoke Call the 24-hour hour crisis hotline for domestic abuse at Massiel Ferrell MD Apr 28, 2016 08:48
[2016-04-28] MEDS: PANTOPRAZOLE SOD 40 MG DELAYED RELEASE TAB PO SCH (09:03)
[2016-04-28] MEDS: SODIUM CHLORIDE 0.9% FLUSH 5 ML FLUSH IV FLUSH SCH (09:03)
[2016-04-28] MEDS: DOCUSATE SODIUM 100 MG CAP PO SCH (09:03)
[2016-04-28 12:00] VITALS: BP 130/61; PULSE 99; RESP 20; TEMP 96.5
[2016-04-29] MEDS ORDERED: AMOX400S3 PO ×3 (11:51→11:55)
== END 2016-04-28 17:33 | DRG 378 ==
LOC: NEPE 00:38 → NEDA 02:25 → N03B 06:12 → N05B 04-21 21:27 → UNDODISIN 04-28 15:06
PROVIDERS: ADMIT Internal Medicine; ATTEND Internal Medicine
PROC: 30233N1 Transfusion of Nonautologous Red Blood Cells into Peripheral Vein, Percutaneous Approach (ICD-10-PCS; principal; 2016-04-19)
PROC: 0T9B70Z Drainage of Bladder with Drainage Device, Via Natural or Artificial Opening (ICD-10-PCS; 2016-04-19)
DX: K92.1 Melena (principal); E87.2 Acidosis; I95.9 Hypotension, unspecified; R65.10 Systemic inflammatory response syndrome (SIRS) of non-infectious origin without acute organ dysfunction; E11.9 Type 2 diabetes mellitus without complications; F03.90 Unspecified dementia, unspecified severity, without behavioral disturbance, psychotic disturbance, mood disturbance, and anxiety; I69.320 Aphasia following cerebral infarction; D62 Acute posthemorrhagic anemia; Z78.1 Physical restraint status; I10 Essential (primary) hypertension; Z79.4 Long term (current) use of insulin; F32.9 Major depressive disorder, single episode, unspecified; E03.9 Hypothyroidism, unspecified; Z79.02 Long term (current) use of antithrombotics/antiplatelets; E78.5 Hyperlipidemia, unspecified; K21.9 Gastro-esophageal reflux disease without esophagitis; Z66 Do not resuscitate; Z51.5 Encounter for palliative care; K57.30 Diverticulosis of large intestine without perforation or abscess without bleeding
CPT/HCPCS: 36430; 36600; 51702; 70450; 71010; 80053; 81001; 82010; 82533; 82550; 82805; 82948; 83010; 83605; 83615; 83735; 84100; 84443; 84484; 85014; 85018; 85025; 85027; 85044; 85610; 85730; 86850; 86900; 86901; 86920; 87040; 87086; 87449; 87641; 87804; 93005; 96360; C9113; J1630; J2543; J3370; J7030; J7050; P9016

== ENCOUNTER 2016-04-29 10:32 | Emergency (ER) | payer MEDICARE, OTHER ==
[~2016-04-29] VITALS: Ht 152.4 cm; Wt 55.0 kg
[~2016-04-29 10:32] MED LIST changes: +ALPR.25 PO; -CARD240C6 PO; -DILT90TA PO; -GABA300C5 PO; -GLIP10TA6 PO; -LISI10TA3 PO; -METF500T PO; +PANT40TA3 PO; -PLAV75TA29 PO; -PRED20 PO; -PROCHCT RECTAL
[2016-04-29 10:50] VITALS: BP 121/56; PULSE 80; RESP 18; TEMP 98.6; O2SAT 95
--- NOTE | 2016-04-29 10:55 | PD ---
HPI Chief Complaint: Fall Time Seen by Provider: 10:55 Travel History International Travel<30 days: No Contact w/Intl Traveler<30days: No Traveled to known affect area: No History of Present Illness HPI 89-year-old female history of dementia presents to emergency department via EMS status post fall at her nursing facility. Patient fell out of her chair, struck her left occipital region. There was no loss of consciousness. Patient is difficult to assess due to her dementia. Her only complaint is that she is thirsty and wants something to drink. Patient has no known drug allergies. PFSH Past Medical History Medical History: Unable to Obtain Anemia: Yes Anxiety: Yes Depression: Yes Cancer: No Cardiac Catheterization: Yes Cardiovascular Problems: No High Cholesterol: Yes Cerebrovascular Accident: Yes (HX OF INFARCT) Dementia: Yes Diabetes: Yes (TYPE 2) Diminished Hearing: No (DARRYL) Endocrine: Yes Gastrointestinal Disorders: Yes (HEMORRHOIDS) GERD: Yes Genitourinary: Yes (UTI) Headaches: No Hypertension: Yes Immune Disorder: No Musculoskeletal: No Neurologic: Yes Psychiatric: No Reproductive: No Respiratory: No Seizures: No Sickle Cell Disease: No Thyroid Disease: Yes (HYPO) Menopausal: Yes Past Surgical History Abdominal Surgery: No AICD: No Cardiac Surgery: No Ear Surgery: No Endocrine Surgery: No Eye Surgery: No Genitourinary Surgery: No Gynecologic Surgery: No Oral Surgery: No Pacemaker: No Thoracic Surgery: No Other Surgery: Yes (RIGHT BIG RIGHT TOE AMPUTATED ) Social History Alcohol Use: No (DARRYL) Tobacco Use: No (DARRYL) Substance Use: No (DARRYL) Allergies-Medications (Allergen,Severity, Reaction): Coded Allergies: No Known Allergies (Verified , 04/29/16) Reported Meds & Prescriptions Reported Meds & Active Scripts Active Amoxicillin Liq (Amoxicillin) 400 Mg/5 Ml Susp 800 Mg PO BID 7 Days Pantoprazole (Pantoprazole Sodium) 40 Mg Tab 40 Mg PO DAILY 30 Days Levemir Inj (Insulin Detemir) 1,000 unit/ 10 ML Vial 5 Units SQ HS 30 Days Xanax (Alprazolam) 0.25 Mg Tab 0.25 Mg PO Q6H PRN Zanaflex (Tizanidine HCl) 4 Mg Tab 4 Mg PO HS Synthroid (Levothyroxine Sodium) 200 Mcg Tab 200 Mcg PO DAILY@0600 Aricept (Donepezil) 5 Mg Tab 5 Mg PO HS Celexa (Citalopram Hydrobromide) 20 Mg Tab 20 Mg PO DAILY Cholestyramine 4 Gm/Pkt Powd 4 Gm PO DAILY@1200 Reported Trazodone (Trazodone HCl) 50 Mg Tab 50 Mg PO HS PRN Imodium A-D (Loperamide HCl) 2 Mg Cap 2 Mg PO Q3HR PRN Give 2x2mg at onset of diarrhea and then 1 with each loose stool (max 8 caps/24hrs. Notify MD if any blood in stool or diarrhea persists more than 4 days Ferrousul (Ferrous Sulfate) 325 Mg Tab 325 Mg PO TID Nuedexta 20-10 mg (Dextromethorphan HBr-Quinidine) 1 Cap Cap 1 Cap PO BID Tylenol (Acetaminophen) 325 Mg Tab 650 Mg PO Q4H PRN Lomotil (Diphenoxylate-Atropine) 2.5-0.025 Mg Tab 1 Tab PO DAILY PRN Novolog Inj (Insulin Aspart) 1,000 Unit/10 Ml Vial 0 SQ ACHS Sliding Scale as directed: if <70 call MD, 151-200=2 units, 201-250=4 units, 251-300=6 units, 301-350=8 units, 351-400=10 units, >400=12 units and call MD Probiotic (Lactobacillus Acidophilus) 1 Cap Cap 1 Cap PO BID Namenda Xr (Memantine) 14 Mg Caper 14 Mg PO DAILY Zofran (Ondansetron HCl) 4 Mg Tab 4 Mg PO Q6HR PRN Sm Acid Data Specialist (Ranitidine HCl) 75 Mg Tab 75 Mg PO BID Review of Systems ROS Limitations: Other: (dementia) General / Constitutional: No: Fever Eyes: No: Visual changes HENT: No: Headaches Cardiovascular: No: Chest Pain or Discomfort Respiratory: No: Shortness of Breath Gastrointestinal: No: Abdominal Pain Genitourinary: No: Dysuria Musculoskeletal: No: Pain Skin: No Rash Neurologic: No: Weakness Psychiatric: No: Depression Endocrine: No: Polydipsia Hematologic/Lymphatic: No: Easy Bruising Physical Exam Exam Limitations: Altered Mental Status, Other: (dementia) Narrative GENERAL: Patient is moving all extremities. Patient removed the c-collar that was placed by EMS. She is moving her neck without difficulty. SKIN: Warm and dry. Normal color. Normal turgor. Patient has a very small superficial abrasion to the left occipital region. HEAD: Atraumatic. Normocephalic. No bony tenderness with palpation appreciated. EYES: Pupils equal and round. No scleral icterus. No injection or drainage. ENT: No nasal bleeding or discharge. Mucous membranes pink and moist. Pharynx is normal. No dental injury. Airway is patent. NECK: Trachea midline. No bony tenderness or step-off. Patient has no complaints of pain with palpation of the neck and is moving it without difficulty. Nexus protocol her cervical spine is clear. CARDIOVASCULAR: Regular rate and rhythm. Respiratory she had this time. RESPIRATORY: No accessory muscle use. Clear to auscultation. Breath sounds equal bilaterally. MUSCULOSKELETAL: Extremities without clubbing, cyanosis, or edema. No obvious deformities. NEUROLOGICAL: Awake and alert. No obvious cranial nerve deficits. Motor grossly within normal limits. Five out of 5 muscle strength in the arms and legs. Normal speech. PSYCHIATRIC: Patient is demented. Data Data Last Documented VS Vital Signs Date Time Temp Pulse Resp B/P Pulse Ox O2 Delivery O2 Flow Rate FiO2 04/29/16 10:50 98.6 80 18 121/[address] Brain W/O Iv Contrast(Rout) (04/29/16 10:51) [facility] Medical Decision Making Medical Screen Exam Complete: Yes Emergency Medical Condition: Yes Differential Diagnosis Fall from chair. Contusion to head. Dementia. Narrative Course Patient appears medically stable at time of exam. CT of the head is ordered. No further workup was felt necessary based on the patient's history and physical. CT shows no acute fracture or intracranial abnormality per radiologist. CT shows possible early mastoiditis on the left. Patient will be placed on amoxicillin 875 twice a day for 7 days. Patient is felt stable to return to the nursing facility. Patient should follow with her primary care physician as needed. Patient can return the emergency Department with worsening symptoms as necessary. Diagnosis Primary Impression: Fall from chair, initial encounter Additional Impressions: Scalp contusion Mastoiditis of left side Dementia associated with other underlying disease with behavioral disturbance Referrals: Primary Care Physician Patient Instructions: General Instructions Additional Instructions: CT shows no acute fracture or intracranial abnormality per radiologist. CT shows possible early mastoiditis on the left. Patient will be placed on amoxicillin 875 twice a day for 7 days. Patient is felt stable to return to the nursing facility. Patient should follow with her primary care physician as needed. Patient can return the emergency Department with worsening symptoms as necessary. Med/Other Pt SpecificInfo: Prescription(s) given Scripts Amoxicillin Liq 400 Mg/5 Ml [id number] Mg PO BID 7 Days Ref 0 Prov:Marcin Connor MD 04/29/16 Disposition: 01 DISCHARGE HOME Condition: Stable Rony Vaz Apr 29, 2016 10:55
--- NOTE | 2016-04-29 11:45 | RADRPT ---
EXAM DATE/TIME: 04/29/2016 11:27 [facility] COMPARISON: CT BRAIN W/O CONTRAST, April 19, 2016, 1:45. INDICATIONS : Trauma, fall. Laceration to left side of head. RADIATION DOSE: 37.10 CTDIvol (mGy) MEDICAL HISTORY : Dementia. Hypertension. Diabetes mellitus type 2.CVA. SURGICAL HISTORY : None. ENCOUNTER: Initial ACUITY: 1 day PAIN SCALE: 6/10 LOCATION: Left cranial TECHNIQUE: Multiple contiguous axial images were obtained of the head. Using automated exposure control and adj ustment of the mA and/or kV according to patient size, radiation dose was kept as low as reasonably a chievable to obtain optimal diagnostic quality images. FINDINGS: CEREBRUM: The ventricles are normal for age. No evidence of midline shift, mass lesion, hemorrhage or acute in farction. No extra-axial fluid collections are seen. Chronic low attenuation again seen in the periv entricular white matter. There is an old infarct with encephalomalacia in the left posterior cerebral artery distribution. POSTERIOR FOSSA: The cerebellum and brainstem are intact. The 4th ventricle is midline. The cerebellopontine angle i s unremarkable. EXTRACRANIAL: Trace fluid in the left mastoid air cells. No perceptible fracture. SKULL: The calvaria is intact. No evidence of skull fracture. CONCLUSION: 1. No acute intracranial abnormality. 2. 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 3. Chronic white matter changes. 4. Possible mastoiditis developing on the left. Damir Hennessy MD on April 29, 2016 at 11:42 Board Certified Radiologist. This report was verified electronically.
[2016-04-29] MEDS ORDERED: AMOX400S3 PO ×3 (11:51→11:55)
== END 2016-04-29 12:41 | disposition home or self-care (01) ==
LOC: NEDAMB 10:32
DX: S00.03XA Contusion of scalp, initial encounter (principal); H70.92 Unspecified mastoiditis, left ear; F03.90 Unspecified dementia, unspecified severity, without behavioral disturbance, psychotic disturbance, mood disturbance, and anxiety; E78.00 Pure hypercholesterolemia, unspecified; E11.9 Type 2 diabetes mellitus without complications; K21.9 Gastro-esophageal reflux disease without esophagitis; I10 Essential (primary) hypertension; Z79.4 Long term (current) use of insulin; E03.9 Hypothyroidism, unspecified; W07.XXXA Fall from chair, initial encounter; Y93.9 Activity, unspecified; Y92.129 Unspecified place in nursing home as the place of occurrence of the external cause
CPT/HCPCS: 70450